=== PATIENT | male | born 1955 | race African-American/Black ===

== ENCOUNTER 2019-10-17 19:26 | Inpatient (IN) ==
[2019-10-17] MEDS ORDERED: ALBUT/IPRATROP 3MG/0.5MG NEB 3 ML VIAL NEB STA ×2 (19:41→22:19)
--- NOTE | 2019-10-17 19:59 | XRay Report ---
XR chest 1V portable HISTORY: Shortness of breath. COMPARISON: None. FINDINGS: The cardiac silhouette is moderately enlarged. No focal lung consolidations to suggest pneu monia. There is mild central pulmonary basilar congestion without overt edema. No pleural effusions. No pneumothorax. Degenerative changes noted within the shoulders. IMPRESSION: Moderate cardiomegaly. There is mild central pulmonary vascular congestion without overt edema. ACT 112: Negative or not required by law. Electronically signed by: Blake Zaldivar M.D. 10/17/2019 7:58 PM
--- NOTE | 2019-10-17 20:15 | Emergency Department Note ---
Entered by Jenifer Benavides acting as a scribe for History of Present Illness General Chief complaint: Shortness of Breath/Dyspnea Stated complaint: SOB Time Seen by Provider: 10/17/19 19:33 Source: patient History of Present Illness Onset (ago): day(s) 1 Location: chest Pain Consistency: + intermittent Quality: + sharp Exacerbated By: + other (lying down) Associated symptoms: + chest pain, + cough, + fever/chills, + loss of appetite and + shortness of breath Treatments prior to arrival: none The patient is a 64 year old male who presents to the Emergency Room with complaints of shortness of breath that began today while driving. The patient had just travelled 7 hours from [facility] to [place]. He notes that he had to stop several times to catch his breath. He complains of sharp pain, quick pains in his chest. The patient also notes difficulty sleeping, for when he lays flat he feels uncomfortable. He states that sitting up is more comfortable for him. He also reports that he had a 100.2 degree fever yesterday, along with loss of appetite and dry cough. The patient has a history of CHF, but has not had a heart attack. The patient takes Lasix daily, but he states that he has not taken one today. The patient denies smoking. He states that he exercises about 4 or 5 days a week, and he has not noticed any difficulties lately. The patient has never used a nebulizer before. Home Medications Home Medications Medication Instructions Recorded Confirmed Type aspirin [Aspir-81] 81 mg PO DAILY 10/17/19 10/17/19 History carvedilol 12.5 mg PO DAILY 10/17/19 10/17/19 History furosemide 80 mg PO DAILY 10/17/19 10/17/19 History lisinopril 10 mg PO DAILY 10/17/19 10/17/19 History multivitamin [Multiple Vitamins] 1 tab PO DAILY 10/17/19 10/17/19 History spironolactone 25 mg PO DAILY 10/17/19 10/17/19 History Allergies Allergy/AdvReac Type Severity Reaction Status Date / Time No Known Allergies Allergy Unverified 10/17/19 21:21 Past Med/Surg History Medical History (Updated 10/17/19 @ 23:40 by Dmitri Perez DO) CHF (congestive heart failure) Diastolic murmur Surgical History No pertinent past surgical history Family History Grandmother CHF (congestive heart failure) Social History Preferred Language: Georgian Communication Ability: Effective 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 and A total of 10 systems reviewed and were otherwise negative Physical Exam Vital Signs Vital Signs - 24 hr 10/17/19 19:36 10/17/19 19:48 10/17/19 19:56 Temperature 36.4 C L Temperature Source Oral Pulse Rate 101 H Pulse Rate [Right Finger] 64 Pulse Rate from SpO2 Sensor Pulse Rhythm Regular Pulse Strength Normal Respiratory Rate 16 Respiratory Effort / Characteristics Non-Labored Spontaneous Non-Labored Spontaneous Respiratory Depth Normal Respiratory Pattern Regular Blood Pressure 154/85 H Blood Pressure [Right Arm] Blood Pressure Mean 108 Blood Pressure Mean [Right Arm] Blood Pressure Position Sitting Pulse Oximetry 87 L 97 97 Oxygen Delivery Method Room Air Nasal Cannula Nasal Cannula Oxygen Flow Rate 87 4 5 Sepsis Recent Fever Within 48 Hours No Sepsis Action Taken by Nursing No Action Required 10/17/19 20:31 10/17/19 20:40 10/17/19 20:50 Temperature Temperature Source Pulse Rate 61 64 64 Pulse Rate [Right Finger] Pulse Rate from SpO2 Sensor 63 65 64 Pulse Rhythm Pulse Strength Respiratory Rate 17 27 H 17 Respiratory Effort / Characteristics Respiratory Depth Respiratory Pattern Blood Pressure 155/77 H Blood Pressure [Right Arm] Blood Pressure Mean 95 Blood Pressure Mean [Right Arm] Blood Pressure Position Pulse Oximetry 96 93 97 Oxygen Delivery Method Room Air Room Air Room Air Oxygen Flow Rate Sepsis Recent Fever Within 48 Hours Sepsis Action Taken by Nursing 10/17/19 20:54 10/17/19 21:00 10/17/19 21:01 Temperature Temperature Source Pulse Rate 67 65 Pulse Rate [Right Finger] 62 Pulse Rate from SpO2 Sensor 70 66 Pulse Rhythm Pulse Strength Respiratory Rate 14 27 H 18 Respiratory Effort / Characteristics Respiratory Depth Respiratory Pattern Blood Pressure 150/127 H Blood Pressure [Right Arm] 155/77 H Blood Pressure Mean 132 Blood Pressure Mean [Right Arm] 103 Blood Pressure Position Pulse Oximetry 94 91 93 Oxygen Delivery Method Room Air Room Air Room Air Oxygen Flow Rate Sepsis Recent Fever Within 48 Hours Sepsis Action Taken by Nursing 10/17/19 21:10 10/17/19 21:20 10/17/19 21:30 Temperature Temperature Source Pulse Rate 63 65 62 Pulse Rate [Right Finger] Pulse Rate from SpO2 Sensor 63 65 62 Pulse Rhythm Pulse Strength Respiratory Rate 28 H 11 L 22 Respiratory Effort / Characteristics Respiratory Depth Respiratory Pattern Blood Pressure 145/59 H Blood Pressure [Right Arm] Blood Pressure Mean 99 Blood Pressure Mean [Right Arm] Blood Pressure Position Pulse Oximetry 92 91 94 Oxygen Delivery Method Room Air Room Air Room Air Oxygen Flow Rate Sepsis Recent Fever Within 48 Hours Sepsis Action Taken by Nursing 10/17/19 21:31 10/17/19 21:52 10/17/19 22:00 Temperature Temperature Source Pulse Rate 64 71 68 Pulse Rate [Right Finger] Pulse Rate from SpO2 Sensor 64 72 68 Pulse Rhythm Pulse Strength Respiratory Rate 28 H 36 H 31 H Respiratory Effort / Characteristics Respiratory Depth Respiratory Pattern Blood Pressure Blood Pressure [Right Arm] Blood Pressure Mean Blood Pressure Mean [Right Arm] Blood Pressure Position Pulse Oximetry 96 95 94 Oxygen Delivery Method Room Air Room Air Room Air Oxygen Flow Rate Sepsis Recent Fever Within 48 Hours Sepsis Action Taken by Nursing 10/17/19 22:33 Temperature Temperature Source Pulse Rate Pulse Rate [Right Finger] 69 Pulse Rate from SpO2 Sensor Pulse Rhythm Pulse Strength Respiratory Rate 18 Respiratory Effort / Characteristics Non-Labored Spontaneous Respiratory Depth Respiratory Pattern Blood Pressure Blood Pressure [Right Arm] Blood Pressure Mean Blood Pressure Mean [Right Arm] Blood Pressure Position Pulse Oximetry 91 Oxygen Delivery Method Room Air Oxygen Flow Rate Sepsis Recent Fever Within 48 Hours Sepsis Action Taken by Nursing GENERAL: Patient is in no acute distress. HEENT: No acute trauma, normocephalic atraumatic, mucous membranes moist, no nasal congestion, no scleral icterus. NECK: No stridor, no adenopathy, no meningismus, trachea is midline. LUNGS: Decrease breath sounds, especially in right lower lung. No respiratory distress. No wheezing. Some basilar crackles were heard, especially in right. HEART: 2/6 diastolic murmur. Regular rate and rhythm. ABDOMEN: Soft, nontender, bowel sounds positive, no hernias, no peritonitis. EXTREMITIES: No cyanosis or edema, full range of motion of all the joints without pain or difficulty, no signs for acute trauma. NEUROLOGIC: Oriented x 3, no acute motor or sensory deficits, no focal weakness. SKIN: No rash, no jaundice, no diaphoresis. Course Course 1941: Past medical records reviewed. The patient was evaluated in room A02. A complete history and physical exam was performed. 2125: I rechecked on the patient, who was resting in bed. He will go for CT. 2223: I updated the patient and discussed the possibility of staying in the hospital for further treatment. The patient was agreeable to this. He notes that he is feeling a lot better after 2227: I spoke to Dr. Perez, [facility] hospitalist, who agreed to take over care of the patient. The patient understands and is agreeable to the treatment plan. The patient will be further evaluated. Administered Medications Discontinued Medications Albuterol (Duoneb) 3 ml NEB NOW STA Stop: 10/17/19 19:42 Last Admin: 10/17/19 19:55 Dose: 3 ml Documented by: [id number] Albuterol (Duoneb) 3 ml NEB NOW STA Stop: 10/17/19 22:20 Last Admin: 10/17/19 22:33 Dose: 3 ml Documented by: [id number] Piperacillin Sod/Tazobactam Sod (Zosyn) 4.5 gm in 120 mls @ 240 mls/hr IV NOW ONE Stop: 10/17/19 22:47 Last Infusion: 10/17/19 23:02 Dose: 0 mls/hr Documented by: [id number] Admin: 10/17/19 22:30 Dose: 240 mls/hr Documented by: [id number] Ioversol (Optiray 320 125ml) 118 ml IV ONCE PRN PRN Reason: Interaction Checking Stop: 10/21/19 21:41 Last Admin: 10/17/19 21:43 Dose: 118 ml Documented by: [id number] Medical Decision Making Differential Diagnosis Differential diagnosis includes: pneumonia, bronchitis, CHF, influenza, NJ, anemia, pneumothorax, fluid overload, among others were considered. Medical Records Attestation: I reviewed the patient's medical records. Home Medications Current Medication List: was personally reviewed by me Laboratory Data Attestation: I reviewed the patient's lab results. Result diagrams: 10/17/19 20:10 10/17/19 20:50 Lab Results 10/17/19 10/17/19 10/17/19 Range/Units 19:50 20:10 20:10 WBC 9.37 (4.8-10.8) K/uL RBC 4.44 L (4.7-6.1) M/uL Hgb 14.4 (14.0-18.0) g/dL Hct 42.9 (42-52) % MCV 96.6 (80-100) fL MCH 32.4 (25-34) pg MCHC 33.6 (32-36) g/dL RDW Std Deviation 53.0 H (36.4-46.3) fL RDW Coeff of Matt 15.1 H (11.5-14.5) % Plt Count 189 (130-400) K/uL MPV 11.1 H (7.4-10.4) fL Immature Gran % (Auto) 0.2 % Neut % (Auto) 74.4 % Lymph % (Auto) 16.9 % Kern % (Auto) 8.0 % Eos % (Auto) 0.2 % Baso % (Auto) 0.3 % Immature Gran # (Auto) 0.02 (0.00-0.02) K/uL Neut # (Auto) 6.97 H (1.4-6.5) K/uL Lymph # (Auto) 1.58 (1.2-3.4) K/uL Kern # (Auto) 0.75 H (0.11-0.59) K/uL Eos # (Auto) 0.02 (0-0.5) K/uL Baso # (Auto) 0.03 (0-0.2) K/uL PT 17.2 H (9.0-12.0) Seconds INR 1.7 H (0.9-1.1) APTT 26.5 (21.0-31.0) Seconds PTT Ratio 1.0 Sodium (136-145) mmol/L Potassium (3.5-5.1) mmol/L Chloride (98-107) mmol/L Carbon Dioxide (21-32) mmol/L Anion Gap (3-11) BUN (7-18) mg/dl Creatinine (0.6-1.4) mg/dl Est Cr Clr Drug Dosing ml/min Est GFR ( Amer) Est GFR (Non-Af Amer) BUN/Creatinine Ratio (10-20) Glucose (70-99) mg/dl Lactate (0.4-2.0) mmol/L Calcium (8.5-10.1) mg/dl Magnesium (1.8-2.4) mg/dl Total Bilirubin (0.2-1) mg/dl AST (15-37) U/L ALT (12-78) U/L Alkaline Phosphatase (45-117) U/L Troponin I (0-0.045) ng/ml NT-Pro-B Natriuret Pep (0-900) pg/ml Total Protein (6.4-8.2) gm/dl Albumin (3.4-5.0) gm/dl Globulin (2.5-4.0) gm/dl Albumin/Globulin Ratio (0.9-2) Specimen Hemolysis Influenza Type A (PCR) Neg for Influ A (Neg) Influenza Type B (PCR) Neg for Influ B (Neg) 10/17/19 10/17/19 10/17/19 Range/Units 20:10 20:10 20:50 WBC (4.8-10.8) K/uL RBC (4.7-6.1) M/uL Hgb (14.0-18.0) g/dL Hct (42-52) % MCV (80-100) fL MCH (25-34) pg MCHC (32-36) g/dL RDW Std Deviation (36.4-46.3) fL RDW Coeff of Matt (11.5-14.5) % Plt Count (130-400) K/uL MPV (7.4-10.4) fL Immature Gran % (Auto) % Neut % (Auto) % Lymph % (Auto) % Kern % (Auto) % Eos % (Auto) % Baso % (Auto) % Immature Gran # (Auto) (0.00-0.02) K/uL Neut # (Auto) (1.4-6.5) K/uL Lymph # (Auto) (1.2-3.4) K/uL Kern # (Auto) (0.11-0.59) K/uL Eos # (Auto) (0-0.5) K/uL Baso # (Auto) (0-0.2) K/uL PT (9.0-12.0) Seconds INR (0.9-1.1) APTT (21.0-31.0) Seconds PTT Ratio Sodium 138 (136-145) mmol/L Potassium Cancelled (3.5-5.1) mmol/L Chloride 106 (98-107) mmol/L Carbon Dioxide 27 (21-32) mmol/L Anion Gap 5.0 (3-11) BUN 34 H (7-18) mg/dl Creatinine 1.51 H (0.6-1.4) mg/dl Est Cr Clr Drug Dosing 64.3 ml/min Est GFR ( Amer) 55.4 Est GFR (Non-Af Amer) 47.8 BUN/Creatinine Ratio 22.8 H (10-20) Glucose 102 H (70-99) mg/dl Lactate 2.2 H* (0.4-2.0) mmol/L Calcium 9.6 (8.5-10.1) mg/dl Magnesium (1.8-2.4) mg/dl Total Bilirubin 5.6 H (0.2-1) mg/dl AST (15-37) U/L ALT 52 (12-78) U/L Alkaline Phosphatase 76 (45-117) U/L Troponin I 0.059 H* (0-0.045) ng/ml NT-Pro-B Natriuret Pep 4152 H (0-900) pg/ml Total Protein 8.0 (6.4-8.2) gm/dl Albumin 3.7 (3.4-5.0) gm/dl Globulin 4.3 H (2.5-4.0) gm/dl Albumin/Globulin Ratio 0.9 (0.9-2) Specimen Hemolysis Influenza Type A (PCR) (Neg) Influenza Type B (PCR) (Neg) 10/17/19 10/17/19 Range/Units 20:50 22:08 WBC (4.8-10.8) K/uL RBC (4.7-6.1) M/uL Hgb (14.0-18.0) g/dL Hct (42-52) % MCV (80-100) fL MCH (25-34) pg MCHC (32-36) g/dL RDW Std Deviation (36.4-46.3) fL RDW Coeff of Matt (11.5-14.5) % Plt Count (130-400) K/uL MPV (7.4-10.4) fL Immature Gran % (Auto) % Neut % (Auto) % Lymph % (Auto) % Kern % (Auto) % Eos % (Auto) % Baso % (Auto) % Immature Gran # (Auto) (0.00-0.02) K/uL Neut # (Auto) (1.4-6.5) K/uL Lymph # (Auto) (1.2-3.4) K/uL Kern # (Auto) (0.11-0.59) K/uL Eos # (Auto) (0-0.5) K/uL Baso # (Auto) (0-0.2) K/uL PT (9.0-12.0) Seconds INR (0.9-1.1) APTT (21.0-31.0) Seconds PTT Ratio Sodium (136-145) mmol/L Potassium 4.4 (3.5-5.1) mmol/L Chloride (98-107) mmol/L Carbon Dioxide (21-32) mmol/L Anion Gap (3-11) BUN (7-18) mg/dl Creatinine (0.6-1.4) mg/dl Est Cr Clr Drug Dosing ml/min Est GFR ( Amer) Est GFR (Non-Af Amer) BUN/Creatinine Ratio (10-20) Glucose (70-99) mg/dl Lactate 2.6 H* (0.4-2.0) mmol/L Calcium (8.5-10.1) mg/dl Magnesium 2.2 (1.8-2.4) mg/dl Total Bilirubin (0.2-1) mg/dl AST 32 (15-37) U/L ALT (12-78) U/L Alkaline Phosphatase (45-117) U/L Troponin I (0-0.045) ng/ml NT-Pro-B Natriuret Pep (0-900) pg/ml Total Protein (6.4-8.2) gm/dl Albumin (3.4-5.0) gm/dl Globulin (2.5-4.0) gm/dl Albumin/Globulin Ratio (0.9-2) Specimen Hemolysis Influenza Type A (PCR) (Neg) Influenza Type B (PCR) (Neg) Imaging Data Radiologist's Impression: Radiology results as stated below per my review and the radiologist's interpretation: XR chest 1V portable HISTORY: Shortness of breath. COMPARISON: None. FINDINGS: The cardiac silhouette is moderately enlarged. No focal lung consolidations to suggest pneumonia. There is mild central pulmonary basilar congestion without overt edema. No pleural effusions. No pneumothorax. Degenerative changes noted within the shoulders. IMPRESSION: Moderate cardiomegaly. There is mild central pulmonary vascular congestion without overt edema. ACT 112: Negative or not required by law. Electronically signed by: Blake Zaldivar M.D. 10/17/2019 7:58 PM CHEST CTA for PULMONARY ARTERIES CT DOSE: 1473.17 mGy.cm HISTORY: Shortness of breath. TECHNIQUE: Multiaxial CT images of the chest were performed following the intravenous administration of contrast to evaluate the pulmonary arteries. Maximal intensity projection images were also obtained. A dose lowering technique was utilized adhering to the principles of ALARA. COMPARISON STUDY: None. FINDINGS: Normal caliber thoracic aorta with no evidence for dissection. There is moderate to severe cardiomegaly. There is retrograde opacification of the hepatic veins and IVC consistent with right heart dysfunction. Motion artifact obscures the bilateral lower lobe subsegmental pulmonary arteries. Otherwise, no filling defects within the remaining pulmonary arteries to suggest pulmonary embolus. No suspicious lytic or blastic osseous lesions. The central airways are patent. No pneumothorax. Small linear density within the periphery the left upper lobe consistent with subsegmental atelectasis. Faint groundglass appearance throughout the lungs. This could be due to air-trapping or secondary to a poor inspiratory effort. No pleural or pericardial effusions. Small focus of patchy and nodular densities within the base of the right lower lobe posteriorly. These are suboptimally assessed due to the motion artifact. Dominant nodule measures 2 cm best seen image 59. No hilar lymphadenopathy. A few borderline enlarged mediastinal lymph nodes. IMPRESSION: 1. No evidence for pulmonary embolus with limitations as described above. 2. Moderate to severe cardiomegaly. There is also retrograde opacification of the IVC and hepatic veins consistent with right heart dysfunction. 3. Faint groundglass appearance throughout the lungs. This could be due to air- trapping or secondary to a poor inspiratory effort. 4. Small focus of patchy and nodular densities within the base of the right l ower lobe posteriorly. These are suboptimally assessed due to the motion artifact. The largest nodular density measures approximately 2 cm. This could represent a small focus of inflammatory/infectious change. However, 2-[address] follow-up recommended to ensure resolution and exclude the less likely possibility of a neoplastic process. 5. Borderline mediastinal lymphadenopathy. This also bears watching on future examinations. ACT 112: Negative or not required by law. Electronically signed by: Blake Zaldivar M.D. 10/17/2019 10:07 PM ECG Data Attestation: I personally reviewed and interpreted this ECG as follows: Indication: + SOB/dyspnea Rate (beats per minute): 66 Rhythm: + normal sinus ECG Intervals/blocks: + Normal QT-c (429) ECG ST segments: + T-wave inversions (Lateral); no ST elevation ECG Findings: no PVCs Comparison ECG Date: no prior available Blood Pressure Blood Pressure Findings: Elevated blood pressure Blood Pressure Disposition: further management by hospitalist MDM Narrative There is no leukocytosis or concerning anemia. Platelet count was normal. INR somewhat elevated at 1.7. There was some mild renal insufficiency with a creatinine of 1.51. No concerning electrolyte abnormality. No liver enzyme elevation. BNP was elevated at over 4000, this could be consistent with fluid overload. EKG shows a sinus rhythm, no acute NJ by EKG. Troponin was somewhat elevated at 0.059, this could be consistent with cardiac strain or injury or possibly just mismatch from his hypoxia. Influenza testing was negative. Chest film showed cardiomegaly, no obvious pneumonia, no pneumothorax or CHF. Chest CT shows evidence of for a pneumonia. No evidence for PE. The patient was given a DuoNeb, this did help his breathing, his O2 saturation improved. A second DuoNeb was administered. He received IV Zosyn as antibiotic coverage. He was not given IV fluids because of his history of heart failure. The patient presents with hypoxia, increasing dyspnea. He has a history of cardiomegaly, a heart murmur and CHF. He appears to have pneumonia by work-up. I do think a hospital stay is warranted. I spoke to the patient and case management. The on-call hospitalist was consulted. Continuous Cardiac Monitoring: An order was placed for continuous cardiac monitoring. The monitor shows a rate of 69 with normal sinus rhythm. Impression & Plan Hypoxia, Shortness of breath, Pneumonia, Elevated troponin Discharge Plan Visit Data *Final* Discharge Date/Time: 10/17/19 23:15 Chief Complaint: Shortness of Breath/Dyspnea Stated Complaint: SOB ED Provider: Deshawn Dunham Discharge Problem: Hypoxia, Shortness of breath, Pneumonia, Elevated troponin Patient Disposition: Admitted As Inpatient Discharge Instructions Interventions: ED Discharge Assessment Last Done: 10/17/19 23:15 Discharge Problem: Pneumonia Qualifiers: Pneumonia type: due to unspecified organism Laterality: unspecified laterality Lung location: unspecified part of lung Qualified Code(s): J18.9 - Pneumonia, unspecified organism The scribe's documentation has been prepared under my direction and personally reviewed by me in its entirety. I confirm that the note above accurately reflects all work, treatment, procedures, and medical decision making performed by me.
[2019-10-17 20:24] LABS: Basophils # (auto) 0.03 K/uL (0-0.2); Basophils % (auto) 0.3 %; Eosinophils # (auto) 0.02 K/uL (0-0.5); Eosinophils % (auto) 0.2 %; Hematocrit (blood only) 42.9 % (42-52); Hemoglobin 14.4 g/dL (14.0-18.0); Immature Granulocytes # (auto) 0.02 K/uL (0.00-0.02); Immature Granulocytes % (auto) 0.2 %; Lymphocytes # (auto) 1.58 K/uL (1.2-3.4); Lymphocytes % (auto) 16.9 %; Mean Corpuscular Hemoglobin 32.4 pg (25-34); Mean Corpuscular Hgb Conc 33.6 g/dL (32-36); Mean Corpuscular Volume 96.6 fL (80-100); Mean Platelet Volume 11.1 fL (7.4-10.4); Monocytes # (auto) 0.75 K/uL (0.11-0.59); Neutrophils # (auto) 6.97 K/uL (1.4-6.5); Neutrophils % (auto) 74.4 %; Platelet Count 189 K/uL (130-400); RDW Coefficient of Variation 15.1 % (11.5-14.5); Red Blood Count 4.44 M/uL (4.7-6.1); White Blood Count 9.37 K/uL (4.8-10.8)
[2019-10-17 20:26] LABS: Influenza A virus by PCR Neg for Influ A (Neg); Influenza B virus by PCR Neg for Influ B (Neg)
[2019-10-17 20:39] LABS: INR 1.7 (0.9-1.1); Partial Thromboplastin Time 26.5 Seconds (21.0-31.0); Prothrombin Time 17.2 Seconds (9.0-12.0)
[2019-10-17 20:47] LABS: Albumin Level 3.7 gm/dl (3.4-5.0); BUN Creatinine Ratio 22.8 (10-20); Calcium 9.6 mg/dl (8.5-10.1); Creatinine Clr Calc Pharmacy 64.3 ml/min; Est GFR (African American) 55.4; Est GFR (Non-African American) 47.8
[2019-10-17 21:36] LABS: Potassium 4.4 mmol/L (3.5-5.1)
[2019-10-17 21:39] LABS: Albumin Globulin Ratio 0.9 (0.9-2); Bilirubin,Total 5.6 mg/dl (0.2-1); Globulin 4.3 gm/dl (2.5-4.0)
[2019-10-17 21:42] LABS: Magnesium 2.2 mg/dl (1.8-2.4)
[2019-10-17] MEDS ORDERED: OPTIRAY 320 125ml IV PRN (21:42)
[2019-10-17 21:50] LABS: Troponin I 0.059 ng/ml (0-0.045)
--- NOTE | 2019-10-17 22:09 | CT Scan Report ---
CHEST CTA for PULMONARY ARTERIES CT DOSE: 1473.17 mGy.cm HISTORY: Shortness of breath. TECHNIQUE: Multiaxial CT images of the chest were performed following the intravenous administration of contrast to evaluate the pulmonary arteries. Maximal intensity projection images were also obtaine d. A dose lowering technique was utilized adhering to the principles of ALARA. COMPARISON STUDY: None. FINDINGS: Normal caliber thoracic aorta with no evidence for dissection. There is moderate to severe cardiomegaly. There is retrograde opacification of the hepatic veins and IVC consistent with right he art dysfunction. Motion artifact obscures the bilateral lower lobe subsegmental pulmonary arteries. O therwise, no filling defects within the remaining pulmonary arteries to suggest pulmonary embolus. No suspicious lytic or blastic osseous lesions. The central airways are patent. No pneumothorax. Small linear density within the periphery the left upper lobe consistent with subsegmental atelectasis. Kendrick nt groundglass appearance throughout the lungs. This could be due to air-trapping or secondary to a p oor inspiratory effort. No pleural or pericardial effusions. Small focus of patchy and nodular densit ies within the base of the right lower lobe posteriorly. These are suboptimally assessed due to the m otion artifact. Dominant nodule measures 2 cm best seen image 59. No hilar lymphadenopathy. A few bor derline enlarged mediastinal lymph nodes. IMPRESSION: 1. No evidence for pulmonary embolus with limitations as described above. 2. Moderate to severe cardiomegaly. There is also retrograde opacification of the IVC and hepatic vei ns consistent with right heart dysfunction. 3. Faint groundglass appearance throughout the lungs. This could be due to air-trapping or secondary to a poor inspiratory effort. 4. Small focus of patchy and nodular densities within the base of the right lower lobe posteriorly. T hese are suboptimally assessed due to the motion artifact. The largest nodular density measures appro ximately 2 cm. This could represent a small focus of inflammatory/infectious change. However, 2-[address] follow-up recommended to ensure resolution and exclude the less likely possibility of a n eoplastic process. 5. Borderline mediastinal lymphadenopathy. This also bears watching on future examinations. ACT 112: Negative or not required by law. Electronically signed by: Blake Zaldivar M.D. 10/17/2019 10:07 PM
[2019-10-17] MEDS ORDERED: PIPERACILLIN/TAZOBACTAM 4.5 GM/120 ML BAG IV ONE (22:18)
[2019-10-17] MEDS ORDERED: PIPERACILL/TAZOBAC CONSULT ACTIVE PRN (22:18)
--- NOTE | 2019-10-17 23:03 | History & Physical Report ---
Date of Service October 17, 2019 Assessment & Plan (1) Pneumonia: Admit tele Right lower lobe Given Zosyn dose in ED Treating for community acquired, I will continue patient on IV Rocephin and IV Zithromax. Patient was not given fluid boluses due to his history of CHF. Lactate was minimally elevated at 2.6. (2) Acute respiratory failure with hypoxemia: Improved with 2L nc oxygen which will be continued overnight Duonebs prn (3) Elevated troponin: Considering that this is due to demand ischemia Will trend trops. (4) Diastolic murmur: Patient reports that this is chronic. We have no information to nature of murmur or his EF. Echo ordered. (5) CHF (congestive heart failure): At this time I do not have knowledge to qualify as systolic, diastolic, or combined. Echo ordered Will continue Lasix, carvedilol, and spironolactone. (6) Elevated INR: Patient is not on anticoagulation. He has never been told that this is elevated. I suspect this is due to congested liver from right heart failure. I kept DVT prophylaxis to SCDs. (7) Total bilirubin, elevated: Patient has never been told that this has been elevated or that he has Gilbert's syndrome. He does not have post-prandial abdominal pain or vomiting. Although he has noted nausea over past 5 days such that he has not been eating much. I will check U/S of the gallbladder to assess for stones. History of Present Illness 64 y/o male presented to the ED with SOB and intermittent chest pain. He is traveling to [place] from [place] and had to stop several times to catch his breath by standing at side of car using accessory muscle to breath. He had a fever of 100.2 yesterday and has been having nausea and non-productive cough. He tells me that he has history of CHF but has never had WI. He does not take any anticoagulation. Primary Care Provider: NO PCP Allergies Allergy/AdvReac Type Severity Reaction Status Date / Time No Known Allergies Allergy Unverified 10/17/19 21:21 Home Medications Home Medications Medication Instructions Recorded Confirmed Type aspirin [Aspir-81] 81 mg PO DAILY 10/17/19 10/17/19 History carvedilol 12.5 mg PO DAILY 10/17/19 10/17/19 History furosemide 80 mg PO DAILY 10/17/19 10/17/19 History lisinopril 10 mg PO DAILY 10/17/19 10/17/19 History multivitamin [Multiple Vitamins] 1 tab PO DAILY 10/17/19 10/17/19 History spironolactone 25 mg PO DAILY 10/17/19 10/17/19 History Past Med/Surg History Medical History (Updated 10/17/19 @ 23:40 by Dmitri Perez DO) CHF (congestive heart failure) Diastolic murmur Surgical History No pertinent past surgical history Family History Grandmother CHF (congestive heart failure) Social History Preferred Language: Afghan Feels Safe at Home: Yes Smoking Status: Never smoker Review of Systems Review of Systems: Constitutional- no weight loss Eyes- no acute visual changes ENT- no sinus drainage; no pharyngitis Pulmonary- As in HPI Cardiac- As in HPI GI- no vomiting, no diarrhea, no melena, no hematochezia - no dysuria, no hematuria Musculoskeletal- no arthralgias, no myalgias Derm- no rashes, no new skin lesions. Hematologic- no unusual bruising, no unusual bleeding Lymphatics- no adenopathy Endocrine- no polyuria or polydipsia; no heat or cold intolerance Neuro- no headaches, no focal neurologic symptoms Psych- no anxiety, no depression Physical Exam Physical Exam: General- adult male, NAD Head- atraumatic Eyes- PERRL, EOMI, anicteric ENT- oropharynx clear Neck- supple, no JVD, no adenopathy, no thyromegaly. Lungs- Crackles at the right base, otherwise CTA b/l. Heart- regular rhythm; no gallop, no rub appreciated. II/ diastolic murmur (not new per patient) Abdomen- normal bowel sounds, soft, nontender. 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 Skin- warm & dry Results & Data Vital Signs (Past 12 Hours) Vital Signs Temp Pulse Pulse Resp BP BP Pulse Ox 10/17/19 22:33 69 18 91 10/17/19 22:00 68 31 H 94 10/17/19 21:52 71 36 H 95 10/17/19 21:31 64 28 H 96 10/17/19 21:30 62 22 145/59 H 94 10/17/19 21:20 65 11 L 91 10/17/19 21:10 63 28 H 92 10/17/19 21:01 65 18 150/127 H 93 10/17/19 21:00 67 27 H 91 10/17/19 20:54 62 14 155/77 H 94 10/17/19 20:50 64 17 97 10/17/19 20:40 64 27 H 93 10/17/19 20:31 61 17 155/77 H 96 10/17/19 19:56 64 97 10/17/19 19:48 97 10/17/19 19:36 36.4 C L 101 H 16 154/85 H 87 L Laboratory Results Laboratory Results WBC 9.37 K/uL (4.8-10.8) 10/17/19 20:10 RBC 4.44 M/uL (4.7-6.1) L 10/17/19 20:10 Hgb 14.4 g/dL (14.0-18.0) 10/17/19 20:10 Hct 42.9 % (42-52) 10/17/19 20:10 MCV 96.6 fL (80-100) 10/17/19 20:10 MCH 32.4 pg (25-34) 10/17/19 20:10 MCHC 33.6 g/dL (32-36) 10/17/19 20:10 RDW Std Deviation 53.0 fL (36.4-46.3) H 10/17/19 20:10 RDW Coeff of Matt 15.1 % (11.5-14.5) H 10/17/19 20:10 Plt Count 189 K/uL (130-400) 10/17/19 20:10 MPV 11.1 fL (7.4-10.4) H 10/17/19 20:10 Immature Gran % (Auto) 0.2 % 10/17/19 20:10 Neut % (Auto) 74.4 % 10/17/19 20:10 Lymph % (Auto) 16.9 % 10/17/19 20:10 [place] % (Auto) 8.0 % 10/17/19 20:10 Eos % (Auto) 0.2 % 10/17/19 20:10 Baso % (Auto) 0.3 % 10/17/19 20:10 Immature Gran # (Auto) 0.02 K/uL (0.00-0.02) 10/17/19 20:10 Neut # (Auto) 6.97 K/uL (1.4-6.5) H 10/17/19 20:10 Lymph # (Auto) 1.58 K/uL (1.2-3.4) 10/17/19 20:10 [place] # (Auto) 0.75 K/uL (0.11-0.59) H 10/17/19 20:10 Eos # (Auto) 0.02 K/uL (0-0.5) 10/17/19 20:10 Baso # (Auto) 0.03 K/uL (0-0.2) 10/17/19 20:10 PT 17.2 Seconds (9.0-12.0) H 10/17/19 20:10 INR 1.7 (0.9-1.1) H 10/17/19 20:10 APTT 26.5 Seconds (21.0-31.0) 10/17/19 20:10 PTT Ratio 1.0 10/17/19 20:10 Sodium 138 mmol/L (136-145) 10/17/19 20:10 Potassium 4.4 mmol/L (3.5-5.1) 10/17/19 20:50 Potassium Cancelled 10/17/19 20:50 Chloride 106 mmol/L (98-107) 10/17/19 20:10 Carbon Dioxide 27 mmol/L (21-32) 10/17/19 20:10 Anion Gap 5.0 (3-11) 10/17/19 20:10 BUN 34 mg/dl (7-18) H 10/17/19 20:10 Creatinine 1.51 mg/dl (0.6-1.4) H 10/17/19 20:10 Est Cr Clr Drug Dosing 64.3 ml/min 10/17/19 20:10 Est GFR ( Amer) 55.4 10/17/19 20:10 Est GFR (Non-Af Amer) 47.8 10/17/19 20:10 BUN/Creatinine Ratio 22.8 (10-20) H 10/17/19 20:10 Glucose 102 mg/dl (70-99) H 10/17/19 20:10 Lactate 2.6 mmol/L (0.4-2.0) H* 10/17/19 22:08 Calcium 9.6 mg/dl (8.5-10.1) 10/17/19 20:10 Magnesium 2.2 mg/dl (1.8-2.4) 10/17/19 20:50 Total Bilirubin 5.6 mg/dl (0.2-1) H 10/17/19 20:10 AST 32 U/L (15-37) 10/17/19 20:50 ALT 52 U/L (12-78) 10/17/19 20:10 Alkaline Phosphatase 76 U/L (45-117) 10/17/19 20:10 Troponin I 0.059 ng/ml (0-0.045) H* 10/17/19 20:10 NT-Pro-B Natriuret Pep 4152 pg/ml (0-900) H 10/17/19 20:10 Total Protein 8.0 gm/dl (6.4-8.2) 10/17/19 20:10 Albumin 3.7 gm/dl (3.4-5.0) 10/17/19 20:10 Globulin 4.3 gm/dl (2.5-4.0) H 10/17/19 20:10 Albumin/Globulin Ratio 0.9 (0.9-2) 10/17/19 20:10 Specimen Hemolysis 10/17/19 20:10 Influenza Type A (PCR) Neg for Influ A (Neg) 10/17/19 19:50 Influenza Type B (PCR) Neg for Influ B (Neg) 10/17/19 19:50 Diagnostic Findings [facility], [place] [phone] XRay Report Patient: FEDERICO MELENDEZAdmit Date: 10/17/19 MR#: [id number]: Acct ID:[id number]: Date: [address] [place] [address] Zip: Age: 64Location: ED Sex: M Room/Bed: Att Phy:Diagnosis: SOB Eileen Phy: PCP,NOService Date: 10/17/19 Fam Phy:Interpreting Phy: Blake Zaldivar MD Admit Phy: Ordering Phy: Deshawn Dunham M.D. cc: ~ XR chest 1V portable HISTORY: Shortness of breath. COMPARISON: None. FINDINGS: The cardiac silhouette is moderately enlarged. No focal lung consolidations to suggest pneumonia. There is mild central pulmonary basilar congestion without overt edema. No pleural effusions. No pneumothorax. Degenerative changes noted within the shoulders. IMPRESSION: Moderate cardiomegaly. There is mild central pulmonary vascular congestion without overt edema. ACT 112: Negative or not required by law. Electronically signed by: Blake Zaldivar M.D. 10/17/2019 7:58 PM Dictated: 10/17/191956 Transcribed: 10/17/191956 [place], [place] [phone] CT Scan Report Patient: FEDERICO MELENDEZAdmit Date: 10/17/19 MR#: [id number]: [address] Acct ID:[id number]: Date: [address] [place] [address] Zip: [place] [address] Age: 64Location: ED Sex: M Room/Bed: Att Phy:Diagnosis: SOB Eileen Phy: PCP,NOService Date: 10/17/19 Fam Phy:Interpreting Phy: Blake Zaldivar MD Admit Phy: Ordering Phy: Deshawn Dunham M.D. cc: ~ CHEST CTA for PULMONARY ARTERIES CT DOSE: 1473.17 mGy.cm HISTORY: Shortness of breath. TECHNIQUE: Multiaxial CT images of the chest were performed following the intravenous administration of contrast to evaluate the pulmonary arteries. Maximal intensity projection images were also obtained. A dose lowering technique was utilized adhering to the principles of ALARA. COMPARISON STUDY: None. FINDINGS: Normal caliber thoracic aorta with no evidence for dissection. There is moderate to severe cardiomegaly. There is retrograde opacification of the hepatic veins and IVC consistent with right heart dysfunction. Motion artifact obscures the bilateral lower lobe subsegmental pulmonary arteries. Otherwise, no filling defects within the remaining pulmonary arteries to suggest pulmonary embolus. No suspicious lytic or blastic osseous lesions. The central airways are patent. No pneumothorax. Small linear density within the periphery the left upper lobe consistent with subsegmental atelectasis. Faint groundglass appearance throughout the lungs. This could be due to air-trapping or secondary to a poor inspiratory effort. No pleural or pericardial effusions. Small focus of patchy and nodular densities within the base of the right lower lobe posteriorly. These are suboptimally assessed due to the motion artifact. Dominant nodule measures 2 cm best seen image 59. No hilar lymphadenopathy. A few borderline enlarged mediastinal lymph nodes. IMPRESSION: 1. No evidence for pulmonary embolus with limitations as described above. 2. Moderate to severe cardiomegaly. There is also retrograde opacification of the IVC and hepatic veins consistent with right heart dysfunction. 3. Faint groundglass appearance throughout the lungs. This could be due to air- trapping or secondary to a poor inspiratory effort. 4. Small focus of patchy and nodular densities within the base of the right lower lobe posteriorly. These are suboptimally assessed due to the motion artifact. The largest nodular density measures approximately 2 cm. This could represent a small focus of inflammatory/infectious change. However, 2-[address] follow-up recommended to ensure resolution and exclude the less likely possibility of a neoplastic process. 5. Borderline mediastinal lymphadenopathy. This also bears watching on future examinations. ACT 112: Negative or not required by law. Electronically signed by: Blake Zaldivar M.D. 10/17/2019 10:07 PM Dictated: 10/17/192157 Transcribed: 10/17/192157 Code Status & VTE Plan VTE Prophylaxis Plan VTE Prophylaxis will be ordered: Yes PG Care Time/CCT Total # of Minutes Spent Total Time Spent: 60 Total Time Spent with Patient: Total time spent is greater than 50% in coordination of care (as documented) at patient's floor/unit and/or counseling patient: Coding Level of Care Code 69531 Initial Inpt Care Lvl 3 Diagnoses Pneumonia J18.9 Laterality: unspecified laterality Lung location: unspecified part of lung Pneumonia type: due to unspecified organism Acute respiratory failure with hypoxemia J96.01 Elevated troponin R79.89 Diastolic murmur I38 CHF (congestive heart failure) I50.9 Elevated INR R79.1 Total bilirubin, elevated R17 (1) Pneumonia Laterality: unspecified laterality Lung location: unspecified part of lung Pneumonia type: due to unspecified organism Qualified Code(s): J18.9 - Pneumonia, unspecified organism
[2019-10-17] MEDS ORDERED: ACETAMINOPHEN 325 MG TAB PO PRN (23:35)
[2019-10-17] MEDS ORDERED: ONDANSETRON INJ 2 MG/ML 2 ML VIAL IV PRN (23:35)
[2019-10-17] MEDS ORDERED: ALBUT/IPRATROP 3MG/0.5MG NEB 3 ML VIAL NEB PRN (23:35)
[2019-10-18] MEDS: FAMOTIDINE 20 MG TAB PO SCH ×3 (00:52→20:00)
[2019-10-18] MEDS ORDERED: AZITHROMYCIN 500 MG in DEXTROSE 5% 250 ML IV SCH (01:00)
[2019-10-18] MEDS ORDERED: GUAIFENESIN/DEXTROM SYRUP 200MG/20MG 10ML UDC PO STA (03:41)
[2019-10-18] MEDS: cefTRIAXone SODIUM 2,000 MG in DEXTROSE 5% 50 ML IV SCH (04:09)
[2019-10-18 06:06] LABS: Hematocrit (blood only) 42.9 % (42-52); Hemoglobin 13.9 g/dL (14.0-18.0); Mean Corpuscular Hemoglobin 31.7 pg (25-34); Mean Corpuscular Hgb Conc 32.4 g/dL (32-36); Mean Corpuscular Volume 97.7 fL (80-100); Mean Platelet Volume 11.1 fL (7.4-10.4); Platelet Count 196 K/uL (130-400); RDW Standard Deviation 53.2 fL (36.4-46.3); Red Blood Count 4.39 M/uL (4.7-6.1); White Blood Count 9.91 K/uL (4.8-10.8)
--- NOTE | 2019-10-18 06:39 | Ultrasound Report ---
BILIARY ULTRASOUND CLINICAL HISTORY: nausea, elevated bili COMPARISON STUDY: No previous studies for comparison. FINDINGS: The pancreas appears normal as visualized. There are multiple right renal cysts the largest of which measures 6 cm. There is no hydronephrosis. There is no intra or extrahepatic biliary ductal dilatation. Biphasic flow is identified within the main portal vein. The gallbladder contained sludge. Addition there is an echogenic nonshadowing focus, likely represent ing a nonshadowing gallstone. The technologist reports a negative sonographic Zimmer sign. IMPRESSION: 1. Sludge-filled gallbladder with a probable nonshadowing calculus. No gallbladder wall thickening, n o pericholecystic fluid. No ductal dilatation. Negative sonographic Zimmer sign. 2. Multiple right renal cysts. No evidence of hydronephrosis 3. Biphasic flow within the main portal vein. This could indicate portal hypertension. ACT 112: Negative or not required by law. Electronically signed by: Jamison Ramirez M.D. 10/18/2019 6:38 AM
[2019-10-18 06:48] LABS: Albumin Level 3.4 gm/dl (3.4-5.0); Bilirubin Direct 0.6 mg/dl (0-0.2); Creatinine Clr Calc Pharmacy 59.9 ml/min; Est GFR (African American) 49.7; Est GFR (Non-African American) 42.9; Potassium 3.8 mmol/L (3.5-5.1)
[2019-10-18 07:00] LABS: Albumin Globulin Ratio 0.8 (0.9-2); Bilirubin,Total 4.4 mg/dl (0.2-1); Globulin 4.1 gm/dl (2.5-4.0); Total Protein 7.5 gm/dl (6.4-8.2); Troponin I 0.077 ng/ml (0-0.045)
[2019-10-18] MEDS: MULTIVITAMIN TAB PO SCH (08:24)
[2019-10-18] MEDS: ASPIRIN 81 MG ECTAB PO SCH (08:24)
[2019-10-18] MEDS: lisinopriL 10 MG TAB PO SCH (08:25)
[2019-10-18] MEDS: SPIRONOLACTONE 25 MG TAB PO SCH (08:25)
[2019-10-18] MEDS ORDERED: carvediloL 12.5 MG TAB PO SCH (09:00)
[2019-10-18] MEDS: FUROSEMIDE 80 MG TAB PO SCH (09:40)
--- NOTE | 2019-10-18 11:52 | XCELERA ---
[id number] \\[id number]\[id number]_[id number]
--- NOTE | 2019-10-18 15:27 | Cardiology Consultation ---
Date of Consultation October 18, 2019 Assessment & Plan (1) Elevated troponin: Patient is very mildly elevated cardiac biomarkers. I do not believe this is client services representative of an acute coronary syndrome. He did not have typical symptoms of chest discomfort. Generally speaking is a very active individual without exertional symptoms of chest pain. On a does have reduced systolic function this is likely chronic. I do not believe that a recent ischemic event resulted in pulmonary edema. I think biomarkers were been more markedly elevated if this were the case. (2) Shortness of breath: He seemed to have element of pulmonary vascular congestion at the time of admission. N terminal proBNP was elevated and there was some evidence pulmonary congestion on his x-ray. Symptoms are certainly consistent with orthopnea and pulmonary edema. He did not report any significant dietary indiscretion. No history of arrhythmia or palpitations. Blood pressure could been elevated but not definitively so. Do not believe he an ischemic event. Would advocate continue his diuretic and administering additional dose based on his description of symptoms and his exam. Think the diagnosis of pneumonia is less likely. (3) Valvular heart disease: He has both mitral and aortic regurgitation. He is not appear to be symptomatic in that regard. This can be followed over time. (4) Cardiomyopathy: He does report having had an ischemic evaluation in the past. He does not currently have symptoms consistent with cardiac ischemia. He likely has a nonischemic cardiomyopathy of unclear etiology. He is on outpatient regimen which consists of a beta-ngozi, lisinopril and aldosterone antagonist. He also takes daily diuretic. Generally appears to be well compensated. 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 History of Present Illness Reason for Consultation: Dyspnea Requesting Physician: Lynne Attending Physician: Karrie Batista MD History of Present Illness Patient is a 64-year-old gentleman who has a prior history of what appears to be nonischemic cardiomyopathy. He was recently traveling from [place] to stay, job. This tracked typically takes 7 hours. The patient states that he had to stop [address] due to significant breathing difficulty. Patient states that he would become acutely dyspneic and have to stop the car and walk around prior to resuming his travels. Approximately 3 days leading up to this admission the patient had not been feeling well. He stated he had some very minor constitutional symptoms such as anorexia and diarrhea. He has not report subjective fevers or chills. He also had some breathing difficulty prior to his trip which involved sitting upright at nighttime due to orthopnea. Generally speaking, he is very active individual. He claims to exercise routinely every week. This involves some riding a stationary bike and some resistance training. He does not report symptoms associated with that activity. He has continued this activity for some time without a change in his exercise tolerance. He has not noticed any exertional chest discomfort. He has not had exertional dyspnea. He denies a sense of palpitation. He is not generally suffer dizziness, lightheadedness or had any episodes of syncope. He appears to be compliant with his medical therapy. He takes his diuretic regularly. He monitors his blood pressure regularly. He states he may have had some elevated readings recently. However, his blood pressure readings can be variable. He has not report any lower extremity edema and actually feels dehydrated currently. Relative to admission, he states that his breathing seems somewhat better. Allergies Allergy/AdvReac Type Severity Reaction Status Date / Time No Known Allergies Allergy Unverified 10/17/19 21:21 Home Medications Home Medications Medication Instructions Recorded Confirmed Type aspirin [Aspir-81] 81 mg PO DAILY 10/17/19 10/17/19 History carvedilol 12.5 mg PO DAILY 10/17/19 10/17/19 History furosemide 80 mg PO DAILY 10/17/19 10/17/19 History lisinopril 10 mg PO DAILY 10/17/19 10/17/19 History multivitamin [Multiple Vitamins] 1 tab PO DAILY 10/17/19 10/17/19 History spironolactone 25 mg PO DAILY 10/17/19 10/17/19 History Patient History Medical History CHF (congestive heart failure) Diastolic murmur Surgical History No pertinent past surgical history Family History Grandmother CHF (congestive heart failure) Social History Preferred Language: Uzbek Communication Ability: Effective 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 Physical Exam Physical Exam: The patient is alert and oriented. Mood and affect appeared normal. He answered all questions appropriately. HEENT: Pupils are equal and reactive to light and accommodation. Extraocular movements are intact. The sclerae are anicteric. Neuro: Cranial nerves intact Neck: Patient's neck is supple. He has palpable carotid pulses bilaterally without bruits on auscultation. There is no evidence of jugular venous distention. The thyroid is not enlarged. Lungs: Clear to auscultation bilaterally. He has good air movement without use of accessory muscles. No rales wheezes or rhonchi. Cardiac: Heart demonstrates a regular rate and rhythm. Normal S1 and S2. Saw crescendo de crescendo murmur appreciated. Pulses: The patient has palpable radial pulses bilaterally that are equal in intensity Extremities: There was no evidence of hypoperfusion. There is no cyanosis or clubbing. There is no edema. Skin: I did not appreciate any rashes on examination today. Results & Data Vital Signs (Past 12 Hours) Vital Signs Temp Pulse Pulse Pulse Resp BP Pulse Ox 10/18/19 12:00 36.3 C L 57 L 18 119/66 97 10/18/19 07:51 54 L 10/18/19 07:30 36.4 C L 61 18 116/69 90 10/18/19 04:08 36.4 C L 60 18 141/73 H 96 Laboratory Results Abnormal Lab Results 10/17/19 10/17/19 10/17/19 19:50 20:10 20:10 WBC 9.37 RBC 4.44 L Hgb 14.4 Hct 42.9 MCV 96.6 MCH 32.4 MCHC 33.6 RDW Std Deviation 53.0 H RDW Coeff of Matt 15.1 H Plt Count 189 MPV 11.1 H Immature Gran % (Auto) 0.2 Neut % (Auto) 74.4 Lymph % (Auto) 16.9 [place] % (Auto) 8.0 Eos % (Auto) 0.2 Baso % (Auto) 0.3 Immature Gran # (Auto) 0.02 Neut # (Auto) 6.97 H Lymph # (Auto) 1.58 [place] # (Auto) 0.75 H Eos # (Auto) 0.02 Baso # (Auto) 0.03 PT 17.2 H INR 1.7 H APTT 26.5 PTT Ratio 1.0 Sodium Potassium Chloride Carbon Dioxide Anion Gap BUN Creatinine Est Cr Clr Drug Dosing Est GFR ( Amer) Est GFR (Non-Af Amer) BUN/Creatinine Ratio Glucose Lactate Calcium Magnesium Total Bilirubin Direct Bilirubin AST ALT Alkaline Phosphatase Troponin I NT-Pro-B Natriuret Pep Total Protein Albumin Globulin Albumin/Globulin Ratio Specimen Hemolysis Influenza Type A (PCR) Neg for Influ A Influenza Type B (PCR) Neg for Influ B 10/17/19 10/17/19 10/17/19 20:10 20:10 20:50 WBC RBC Hgb Hct MCV MCH MCHC RDW Std Deviation RDW Coeff of Matt Plt Count MPV Immature Gran % (Auto) Neut % (Auto) Lymph % (Auto) [place] % (Auto) Eos % (Auto) Baso % (Auto) Immature Gran # (Auto) Neut # (Auto) Lymph # (Auto) [place] # (Auto) Eos # (Auto) Baso # (Auto) PT INR APTT PTT Ratio Sodium 138 Potassium Cancelled Chloride 106 Carbon Dioxide 27 Anion Gap 5.0 BUN 34 H Creatinine 1.51 H Est Cr Clr Drug Dosing 64.3 Est GFR ( Amer) 55.4 Est GFR (Non-Af Amer) 47.8 BUN/Creatinine Ratio 22.8 H Glucose 102 H Lactate 2.2 H* Calcium 9.6 Magnesium Total Bilirubin 5.6 H Direct Bilirubin AST ALT 52 Alkaline Phosphatase 76 Troponin I 0.059 H* NT-Pro-B Natriuret Pep 4152 H Total Protein 8.0 Albumin 3.7 Globulin 4.3 H Albumin/Globulin Ratio 0.9 Specimen Hemolysis Influenza Type A (PCR) Influenza Type B (PCR) 10/17/19 10/17/19 10/18/19 20:50 22:08 05:41 WBC 9.91 RBC 4.39 L Hgb 13.9 L Hct 42.9 MCV 97.7 MCH 31.7 MCHC 32.4 RDW Std Deviation 53.2 H RDW Coeff of Matt 15.0 H Plt Count 196 MPV 11.1 H Immature Gran % (Auto) Neut % (Auto) Lymph % (Auto) [place] % (Auto) Eos % (Auto) Baso % (Auto) Immature Gran # (Auto) Neut # (Auto) Lymph # (Auto) [place] # (Auto) Eos # (Auto) Baso # (Auto) PT INR APTT PTT Ratio Sodium Potassium 4.4 Chloride Carbon Dioxide Anion Gap BUN Creatinine Est Cr Clr Drug Dosing Est GFR ( Amer) Est GFR (Non-Af Amer) BUN/Creatinine Ratio Glucose Lactate 2.6 H* Calcium Magnesium 2.2 Total Bilirubin Direct Bilirubin AST 32 ALT Alkaline Phosphatase Troponin I NT-Pro-B Natriuret Pep Total Protein Albumin Globulin Albumin/Globulin Ratio Specimen Hemolysis Influenza Type A (PCR) Influenza Type B (PCR) 10/18/19 10/18/19 05:41 11:45 WBC RBC Hgb Hct MCV MCH MCHC RDW Std Deviation RDW Coeff of Matt Plt Count MPV Immature Gran % (Auto) Neut % (Auto) Lymph % (Auto) [place] % (Auto) Eos % (Auto) Baso % (Auto) Immature Gran # (Auto) Neut # (Auto) Lymph # (Auto) [place] # (Auto) Eos # (Auto) Baso # (Auto) PT INR APTT PTT Ratio Sodium 136 Potassium 3.8 Chloride 103 Carbon Dioxide 26 Anion Gap 7.0 BUN 35 H Creatinine 1.65 H Est Cr Clr Drug Dosing 59.9 Est GFR ( Amer) 49.7 Est GFR (Non-Af Amer) 42.9 BUN/Creatinine Ratio 21.0 H Glucose 90 Lactate Calcium 9.0 Magnesium Total Bilirubin 4.4 H Direct Bilirubin 0.6 H AST 33 ALT 51 Alkaline Phosphatase 78 Troponin I 0.077 H* 0.053 H* NT-Pro-B Natriuret Pep Total Protein 7.5 Albumin 3.4 Globulin 4.1 H Albumin/Globulin Ratio 0.8 L Specimen Hemolysis Influenza Type A (PCR) Influenza Type B (PCR) Diagnostic Findings Echocardiogram performed today revealed moderate reduced LV systolic function, mild LVH, biatrial dilation, mild to moderate aortic regurgitation and moderate mitral regurgitation. Chest CT did not reveal any evidence of pulmonary embolus. Cardiomegaly was noted. ECG Additional Comments: EKG demonstrated normal sinus rhythm with T-wave inversion s. PG Care Time/CCT Total # of Minutes Spent Total Time Spent with Patient: Total time spent is greater than 50% in coordination of care (as documented) at patient's floor/unit and/or counseling patient: Coding Level of Care Code 95305 Initial Inpt Care Lvl 3 Diagnoses Elevated troponin R79.89 Shortness of breath R06.02 Valvular heart disease I38 Cardiomyopathy I42.9
[2019-10-18] MEDS ORDERED: FUROSEMIDE 80 MG in SYRINGE 0 ML IV ONE (17:00)
--- NOTE | 2019-10-18 17:18 | Electrocardiogram Report ---
Test Reason : Blood Pressure : / mmHG Vent. Rate : 066 BPM Atrial Rate : 066 BPM P-R Int : 200 ms QRS Dur : 114 ms QT Int : 410 ms P-R-T Axes : 016 -35 152 degrees QTc Int : 429 ms Normal sinus rhythm Possible Left atrial enlargement Left axis deviation Left ventricular hypertrophy Abnormal ECG No previous ECGs available Confirmed by Aleksandr Alejandre ([id number]) on 10/18/2019 5:18:00 PM Referred By: REFERRED SELF Confirmed By:Dusty Alejandre
--- NOTE | 2019-10-18 17:31 | Electrocardiogram Report ---
Test Reason : Blood Pressure : / mmHG Vent. Rate : 057 BPM Atrial Rate : 057 BPM P-R Int : 196 ms QRS Dur : 120 ms QT Int : 478 ms P-R-T Axes : 015 -29 191 degrees QTc Int : 465 ms Sinus bradycardia Possible Left atrial enlargement Left ventricular hypertrophy with QRS widening and repolarization abnormality Abnormal ECG When compared with ECG of 17-OCT-2019 19:34, (unconfirmed) Inverted T waves have replaced nonspecific T wave abnormality in Inferior leads T wave inversion now evident in Anterior leads Confirmed by Aleksandr Alejandre ([id number]) on 10/18/2019 5:30:36 PM Referred By: REFERRED SELF Confirmed By:Dusty Alejandre
--- NOTE | 2019-10-18 18:41 | Hospitalist Progress Note ---
Date of Service October 18, 2019 Assessment & Plan (1) Pneumonia: Wit cough and fever, SOB, RLL infiltrate on CT Chest, no PE on CTA FLu swab negative Much improved, SOB resolved, afebrile Treating for community acquired, I will continue patient on IV Rocephin and convert to po Zithromax. Patient was not given fluid boluses due to his history of CHF. Lactate was minimally elevated at 2.6 Looks good, not requiring O2 -Recommend following CXR vs CHest CT to resolution in 1 month given nodular appearance of PNA to rule out malignancy--> discussed with pt (2) Cardiomyopathy: With known nonischemic CM x 2 years, on guideline-directed therapy, has declined ICD in the past after discussions with his Manager Er in [place] ECHO here with EF 30-35%, moderate hypokinesis globally LV, mildly reduced RV fxn, elevated RVSP, mod AI Troponin mildly elevated likely myocardial demand ischemia in setting of PNA, NOT UT proBNP in 4000s, cardiomegaly on CXR but no effusions Has had weight loss actually prior to admission due to poor po intake -initially was going to give IV lasix as per discussion with Cardiology, but pt declines this and is feeling excellent, able to lie flat now after treatment for PNA-dc IV lasix -continue po lasix, aldactone, COreg, lisinopril follow I/Os, daily weights, low sodium diet (3) Acute respiratory failure with hypoxemia: Improved with 2L nc oxygen and now weaned off -continue albuterol prn (4) Elevated troponin: Considering that this is due to demand ischemia as above ECG with diffuse TWIs but possibly due to LVH with repol APpreciate Cardiology consultation. (5) Diastolic murmur: secondary to mod AI on ECHO follow as outpt with Cardio (6) CHF (congestive heart failure): As above, chronic systolic CHF (7) Elevated INR: Patient is not on anticoagulation. INR 1.7 He has never been told that this is elevated. I suspect this is due to congested liver from right heart failure. TBili elevated too and trending downward, other LFTs normal, platelets normal -follow INR in AM (8) Total bilirubin, elevated: Patient has never been told that this has been elevated or that he has Gilbert's syndrome. Seems too high to be [place], is 5 and now down to 4 Likely hepatic congestion from CM He does not have post-prandial abdominal pain or vomiting. Although he has noted nausea over past 5 days such that he has not been eating much. U/S of the gallbladder slows sludge and nonshadowing gallstone suspected, no ductal dilatation, and with bidirectional portal vein flow which could indicate portal HTN -f/u with PCP after discharge for further workup for liver disease -check Hepatitis panel -follow LFTs (9) Valvular heart disease: Mod AI on ECHO, accounts for diastolic murmur -follow u pwith Cardio as outpt (10) Renal cyst: multiple cysts, largest 6 cm on right kidney seen on RUQ US Follow up with PCP (11) DVT prophylaxis: SCDs Dispo-much improved, could likely dc tomorrow Subjective Pt feels so much better than when he came in. The cough he has had for 2 months is now resolved for the last 6 hours he says. He denies chest pain. States he works out regularly at the gym 5 x/week with walking on treadmill and lifting weights. Diagnosed with a nonischemic CM 2 years ago. Denies any recent leg swelling. He has actually lost 7 lbs in the last week with being sick rather than gaining weight. He is hesitant to get any IV lasix as he feels back to his baseline. He denies nay previous history of known liver problems. Says he has no abd pain. Denies a h/o IVDA, but does have intercourse protected, with women several times per year, multiple partners. No h/o hepatitis Is here traveling temporarily for work. Tele with SB, rates in 60-70s Review of Systems Review of Systems: All systems reviewed & are unremarkable except as noted in HPI & below Physical Exam Constitutional: WD/WN, vitals as above Eyes: + scleral abnormality (icterus) ENMT: external ear and nose normal, oropharynx normal Neck: trachea midline, no thyromegaly Respiratory: normal respiratory effort Auscultation: + crackles (right base) Cardiovascular: Rate/Rhythm: regular rate and regular rhythm Heart Sounds: + murmur (3/6 diastolic murmur at RUSB) Chest (Breasts): Chest: normal inspection of chest Gastrointestinal (Abdomen): normal bowel sounds, soft, nontender, no hepatosplenomegaly Musculoskeletal: Extremities: extremities normal to inspection; no cyanosis and no clubbing Skin: no rashes, warm and dry Neurologic: moves all extremities and awake; no focal motor deficits Psychiatric: A+Ox3, euthymic affect Lymphatic: no lymphedema Results & Data ([facility]) Vital Signs (Past 12 Hours) Vital Signs Temp Pulse Pulse Resp BP Pulse Ox 10/18/19 15:42 36.2 C L 58 L 20 128/55 L 91 10/18/19 15:38 71 10/18/19 12:00 36.3 C L 57 L 18 119/66 97 10/18/19 07:51 54 L 10/18/19 07:30 36.4 C L 61 18 116/69 90 Laboratory Results 10/18/19 10/18/19 10/18/19 Range/Units 11:45 05:41 05:41 WBC 9.91 (4.8-10.8) K/uL RBC 4.39 L (4.7-6.1) M/uL Hgb 13.9 L (14.0-18.0) g/dL Hct 42.9 (42-52) % MCV 97.7 (80-100) fL MCH 31.7 (25-34) pg MCHC 32.4 (32-36) g/dL RDW Std Deviation 53.2 H (36.4-46.3) fL RDW Coeff of Amtt 15.0 H (11.5-14.5) % Plt Count 196 (130-400) K/uL MPV 11.1 H (7.4-10.4) fL Immature Gran % (Auto) % Neut % (Auto) % Lymph % (Auto) % [place] % (Auto) % Eos % (Auto) % Baso % (Auto) % Immature Gran # (Auto) (0.00-0.02) K/uL Neut # (Auto) (1.4-6.5) K/uL Lymph # (Auto) (1.2-3.4) K/uL [place] # (Auto) (0.11-0.59) K/uL Eos # (Auto) (0-0.5) K/uL Baso # (Auto) (0-0.2) K/uL PT (9.0-12.0) Seconds INR (0.9-1.1) APTT (21.0-31.0) Seconds PTT Ratio Sodium 136 (136-145) mmol/L Potassium 3.8 (3.5-5.1) mmol/L Chloride 103 (98-107) mmol/L Carbon Dioxide 26 (21-32) mmol/L Anion Gap 7.0 (3-11) BUN 35 H (7-18) mg/dl Creatinine 1.65 H (0.6-1.4) mg/dl Est Cr Clr Drug Dosing 59.9 ml/min Est GFR ( Amer) 49.7 Est GFR (Non-Af Amer) 42.9 BUN/Creatinine Ratio 21.0 H (10-20) Glucose 90 (70-99) mg/dl Lactate (0.4-2.0) mmol/L Calcium 9.0 (8.5-10.1) mg/dl Magnesium (1.8-2.4) mg/dl Total Bilirubin 4.4 H (0.2-1) mg/dl Direct Bilirubin 0.6 H (0-0.2) mg/dl AST 33 (15-37) U/L ALT 51 (12-78) U/L Alkaline Phosphatase 78 (45-117) U/L Troponin I 0.053 H* 0.077 H* (0-0.045) ng/ml NT-Pro-B Natriuret Pep (0-900) pg/ml Total Protein 7.5 (6.4-8.2) gm/dl Albumin 3.4 (3.4-5.0) gm/dl Globulin 4.1 H (2.5-4.0) gm/dl Albumin/Globulin Ratio 0.8 L (0.9-2) Specimen Hemolysis Influenza Type A (PCR) (Neg) Influenza Type B (PCR) (Neg) 10/17/19 10/17/19 10/17/19 Range/Units 22:08 20:50 20:50 WBC (4.8-10.8) K/uL RBC (4.7-6.1) M/uL Hgb (14.0-18.0) g/dL Hct (42-52) % MCV (80-100) fL MCH (25-34) pg MCHC (32-36) g/dL RDW Std Deviation (36.4-46.3) fL RDW Coeff of Matt (11.5-14.5) % Plt Count (130-400) K/uL MPV (7.4-10.4) fL Immature Gran % (Auto) % Neut % (Auto) % Lymph % (Auto) % [place] % (Auto) % Eos % (Auto) % Baso % (Auto) % Immature Gran # (Auto) (0.00-0.02) K/uL Neut # (Auto) (1.4-6.5) K/uL Lymph # (Auto) (1.2-3.4) K/uL [place] # (Auto) (0.11-0.59) K/uL Eos # (Auto) (0-0.5) K/uL Baso # (Auto) (0-0.2) K/uL PT (9.0-12.0) Seconds INR (0.9-1.1) APTT (21.0-31.0) Seconds PTT Ratio Sodium (136-145) mmol/L Potassium 4.4 Cancelled (3.5-5.1) mmol/L Chloride (98-107) mmol/L Carbon Dioxide (21-32) mmol/L Anion Gap (3-11) BUN (7-18) mg/dl Creatinine (0.6-1.4) mg/dl Est Cr Clr Drug Dosing ml/min Est GFR ( Amer) Est GFR (Non-Af Amer) BUN/Creatinine Ratio (10-20) Glucose (70-99) mg/dl Lactate 2.6 H* (0.4-2.0) mmol/L Calcium (8.5-10.1) mg/dl Magnesium 2.2 (1.8-2.4) mg/dl Total Bilirubin (0.2-1) mg/dl Direct Bilirubin (0-0.2) mg/dl AST 32 (15-37) U/L ALT (12-78) U/L Alkaline Phosphatase (45-117) U/L Troponin I (0-0.045) ng/ml NT-Pro-B Natriuret Pep (0-900) pg/ml Total Protein (6.4-8.2) gm/dl Albumin (3.4-5.0) gm/dl Globulin (2.5-4.0) gm/dl Albumin/Globulin Ratio (0.9-2) Specimen Hemolysis Influenza Type A (PCR) (Neg) Influenza Type B (PCR) (Neg) 10/17/19 10/17/19 10/17/19 Range/Units 20:10 20:10 20:10 WBC (4.8-10.8) K/uL RBC (4.7-6.1) M/uL Hgb (14.0-18.0) g/dL Hct (42-52) % MCV (80-100) fL MCH (25-34) pg MCHC (32-36) g/dL RDW Std Deviation (36.4-46.3) fL RDW Coeff of Matt (11.5-14.5) % Plt Count (130-400) K/uL MPV (7.4-10.4) fL Immature Gran % (Auto) % Neut % (Auto) % Lymph % (Auto) % [place] % (Auto) % Eos % (Auto) % Baso % (Auto) % Immature Gran # (Auto) (0.00-0.02) K/uL Neut # (Auto) (1.4-6.5) K/uL Lymph # (Auto) (1.2-3.4) K/uL [place] # (Auto) (0.11-0.59) K/uL Eos # (Auto) (0-0.5) K/uL Baso # (Auto) (0-0.2) K/uL PT 17.2 H (9.0-12.0) Seconds INR 1.7 H (0.9-1.1) APTT 26.5 (21.0-31.0) Seconds PTT Ratio 1.0 Sodium 138 (136-145) mmol/L Potassium (3.5-5.1) mmol/L Chloride 106 (98-107) mmol/L Carbon Dioxide 27 (21-32) mmol/L Anion Gap 5.0 (3-11) BUN 34 H (7-18) mg/dl Creatinine 1.51 H (0.6-1.4) mg/dl Est Cr Clr Drug Dosing 64.3 ml/min Est GFR ( Amer) 55.4 Est GFR (Non-Af Amer) 47.8 BUN/Creatinine Ratio 22.8 H (10-20) Glucose 102 H (70-99) mg/dl Lactate 2.2 H* (0.4-2.0) mmol/L Calcium 9.6 (8.5-10.1) mg/dl Magnesium (1.8-2.4) mg/dl Total Bilirubin 5.6 H (0.2-1) mg/dl Direct Bilirubin (0-0.2) mg/dl AST (15-37) U/L ALT 52 (12-78) U/L Alkaline Phosphatase 76 (45-117) U/L Troponin I 0.059 H* (0-0.045) ng/ml NT-Pro-B Natriuret Pep 4152 H (0-900) pg/ml Total Protein 8.0 (6.4-8.2) gm/dl Albumin 3.7 (3.4-5.0) gm/dl Globulin 4.3 H (2.5-4.0) gm/dl Albumin/Globulin Ratio 0.9 (0.9-2) Specimen Hemolysis Influenza Type A (PCR) (Neg) Influenza Type B (PCR) (Neg) 10/17/19 10/17/19 Range/Units 20:10 19:50 WBC 9.37 (4.8-10.8) K/uL RBC 4.44 L (4.7-6.1) M/uL Hgb 14.4 (14.0-18.0) g/dL Hct 42.9 (42-52) % MCV 96.6 (80-100) fL MCH 32.4 (25-34) pg MCHC 33.6 (32-36) g/dL RDW Std Deviation 53.0 H (36.4-46.3) fL RDW Coeff of Matt 15.1 H (11.5-14.5) % Plt Count 189 (130-400) K/uL MPV 11.1 H (7.4-10.4) fL Immature Gran % (Auto) 0.2 % Neut % (Auto) 74.4 % Lymph % (Auto) 16.9 % [place] % (Auto) 8.0 % Eos % (Auto) 0.2 % Baso % (Auto) 0.3 % Immature Gran # (Auto) 0.02 (0.00-0.02) K/uL Neut # (Auto) 6.97 H (1.4-6.5) K/uL Lymph # (Auto) 1.58 (1.2-3.4) K/uL [place] # (Auto) 0.75 H (0.11-0.59) K/uL Eos # (Auto) 0.02 (0-0.5) K/uL Baso # (Auto) 0.03 (0-0.2) K/uL PT (9.0-12.0) Seconds INR (0.9-1.1) APTT (21.0-31.0) Seconds PTT Ratio Sodium (136-145) mmol/L Potassium (3.5-5.1) mmol/L Chloride (98-107) mmol/L Carbon Dioxide (21-32) mmol/L Anion Gap (3-11) BUN (7-18) mg/dl Creatinine (0.6-1.4) mg/dl Est Cr Clr Drug Dosing ml/min Est GFR ( Amer) Est GFR (Non-Af Amer) BUN/Creatinine Ratio (10-20) Glucose (70-99) mg/dl Lactate (0.4-2.0) mmol/L Calcium (8.5-10.1) mg/dl Magnesium (1.8-2.4) mg/dl Total Bilirubin (0.2-1) mg/dl Direct Bilirubin (0-0.2) mg/dl AST (15-37) U/L ALT (12-78) U/L Alkaline Phosphatase (45-117) U/L Troponin I (0-0.045) ng/ml NT-Pro-B Natriuret Pep (0-900) pg/ml Total Protein (6.4-8.2) gm/dl Albumin (3.4-5.0) gm/dl Globulin (2.5-4.0) gm/dl Albumin/Globulin Ratio (0.9-2) Specimen Hemolysis Influenza Type A (PCR) Neg for Influ A (Neg) Influenza Type B (PCR) Neg for Influ B (Neg) PG Care Time/CCT Total # of Minutes Spent Total Time Spent with Patient: Total time spent is greater than 50% in coordination of care (as documented) at patient's floor/unit and/or counseling patient: Coding Level of Care Code 25629 Subseq Hosp Care Lvl 3 Diagnoses Pneumonia J18.9 Laterality: unspecified laterality Lung location: unspecified part of lung Pneumonia type: due to unspecified organism Cardiomyopathy I42.9 Acute respiratory failure with hypoxemia J96.01 Elevated troponin R79.89 Diastolic murmur I38 CHF (congestive heart failure) I50.9 Elevated INR R79.1 Total bilirubin, elevated R17 Valvular heart disease I38 Renal cyst N28.1 DVT prophylaxis Z29.9 (1) Pneumonia Laterality: unspecified laterality Lung location: unspecified part of lung Pneumonia type: due to unspecified organism Qualified Code(s): J18.9 - Pneumo yessenia, unspecified organism
[2019-10-18] MEDS: AZITHROMYCIN 250 MG TAB PO SCH (19:59)
[2019-10-18] MEDS: carvediloL 12.5 MG TAB PO SCH (20:00)
[2019-10-19] MEDS: cefTRIAXone SODIUM 2,000 MG in DEXTROSE 5% 50 ML IV SCH (05:13)
[2019-10-19 06:20] LABS: Hematocrit (blood only) 40.9 % (42-52); Hemoglobin 13.7 g/dL (14.0-18.0); Mean Corpuscular Hemoglobin 31.9 pg (25-34); Mean Corpuscular Hgb Conc 33.5 g/dL (32-36); Mean Corpuscular Volume 95.1 fL (80-100); Mean Platelet Volume 11.2 fL (7.4-10.4); Platelet Count 162 K/uL (130-400); RDW Coefficient of Variation 14.9 % (11.5-14.5); RDW Standard Deviation 51.6 fL (36.4-46.3); White Blood Count 7.39 K/uL (4.8-10.8)
[2019-10-19 06:29] LABS: INR 1.6 (0.9-1.1); Prothrombin Time 15.5 Seconds (9.0-12.0)
[2019-10-19 06:53] LABS: Albumin Level 3.2 gm/dl (3.4-5.0); BUN Creatinine Ratio 22.9 (10-20); Bilirubin Direct 0.5 mg/dl (0-0.2); Calcium 9.2 mg/dl (8.5-10.1); Creatinine Clr Calc Pharmacy 64.6 ml/min; Est GFR (African American) 54.1; Est GFR (Non-African American) 46.7; Potassium 3.9 mmol/L (3.5-5.1)
[2019-10-19 07:00] LABS: Albumin Globulin Ratio 0.8 (0.9-2); Bilirubin,Total 2.2 mg/dl (0.2-1); Total Protein 7.2 gm/dl (6.4-8.2)
[2019-10-19] MEDS: carvediloL 12.5 MG TAB PO SCH (08:05)
[2019-10-19] MEDS: MULTIVITAMIN TAB PO SCH (08:05)
[2019-10-19] MEDS: FAMOTIDINE 20 MG TAB PO SCH (08:05)
[2019-10-19] MEDS: lisinopriL 10 MG TAB PO SCH (08:05)
[2019-10-19] MEDS: ASPIRIN 81 MG ECTAB PO SCH (08:05)
[2019-10-19] MEDS: SPIRONOLACTONE 25 MG TAB PO SCH (08:06)
[2019-10-19] MEDS: FUROSEMIDE 80 MG TAB PO SCH (08:06)
[2019-10-19 08:23] LABS: Hepatitis B Surface Antigen Neg (Neg)
[2019-10-19 08:52] LABS: Hepatitis C IgG 13Yrs+Old_Rflx Neg (Neg)
--- NOTE | 2019-10-19 09:51 | Cardiology Progress Note ---
Date of Service October 19, 2019 Assessment & Plan (1) Elevated troponin: Not suggestive of acute coronary syndrome. No angina or chest pain. (2) Shortness of breath: Seem like the most likely explanation was pulmonary edema. He was not administered any intravenous diuretic. He continues take his oral diuretic. Lung examination seems benign. He is not symptomatic currently. Did not experience orthopnea last evening. Would seem reasonable to send him out on his usual outpatient regimen and him follow up with his primary mounter. (3) Valvular heart disease: He has both mitral and aortic regurgitation. He is not appear to be symptomatic in that regard. This can be followed over time. (4) Cardiomyopathy: Appears well compensated today. He should continue on his outpatient medical regimen trip includes beta-blockade, Damián inhibition and aldosterone antagonism. Subjective This morning patient claims to feeling quite well. He states the breathing is back to its baseline. He has been ambulatory in the asher without significant dyspnea. He feels any congestion or coughing that he had previously has improved as well. Review of Systems Review of Systems: Per HPI Physical Exam Physical Exam: The patient is alert and oriented. Mood and affect appeared normal. He answered all questions appropriately. HEENT: Pupils are equal and reactive to light and accommodation. Extraocular movements are intact. The sclerae are anicteric. Neuro: Cranial nerves intact Lungs: Clear to auscultation bilaterally. He has good air movement without use of accessory muscles. No rales wheezes or rhonchi. Cardiac: Heart demonstrates a regular rate and rhythm. Normal S1 and S2. Soft crescendo- decrescendo murmur appreciated. Pulses: The patient has palpable radial pulses bilaterally that are equal in intensity Extremities: There was no evidence of hypoperfusion. There is no cyanosis or clubbing. There is no edema. Skin: I did not appreciate any rashes on examination today. Results & Data Vital Signs (Past 12 Hours) Vital Signs Temp Pulse Pulse Resp BP Pulse Ox 10/19/19 07:35 36.7 C 81 16 131/62 93 10/19/19 03:49 36.9 C 63 16 126/61 98 10/18/19 23:34 36.8 C 59 L 18 119/61 95 10/18/19 23:19 57 L Laboratory Results Abnormal Lab Results 10/18/19 10/19/19 10/19/19 11:45 05:47 05:47 WBC 7.39 RBC 4.30 L Hgb 13.7 L Hct 40.9 L MCV 95.1 MCH 31.9 MCHC 33.5 RDW Std Deviation 51.6 H RDW Coeff of Matt 14.9 H Plt Count 162 MPV 11.2 H PT INR Sodium 137 Potassium 3.9 Chloride 107 Carbon Dioxide 24 Anion Gap 6.0 BUN 35 H Creatinine 1.54 H Est Cr Clr Drug Dosing 64.6 Est GFR ( Amer) 54.1 Est GFR (Non-Af Amer) 46.7 BUN/Creatinine Ratio 22.9 H Glucose 87 Calcium 9.2 Total Bilirubin 2.2 H Direct Bilirubin 0.5 H AST 31 ALT 48 Alkaline Phosphatase 71 Troponin I 0.053 H* Total Protein 7.2 Albumin 3.2 L Globulin 4.0 Albumin/Globulin Ratio 0.8 L Hep Bs Antigen Hepatitis C Antibody 10/19/19 10/19/19 05:47 05:47 WBC RBC Hgb Hct MCV MCH MCHC RDW Std Deviation RDW Coeff of Matt Plt Count MPV PT 15.5 H INR 1.6 H Sodium Potassium Chloride Carbon Dioxide Anion Gap BUN Creatinine Est Cr Clr Drug Dosing Est GFR ( Amer) Est GFR (Non-Af Amer) BUN/Creatinine Ratio Glucose Calcium Total Bilirubin Direct Bilirubin AST ALT Alkaline Phosphatase Troponin I Total Protein Albumin Globulin Albumin/Globulin Ratio Hep Bs Antigen Neg Hepatitis C Antibody Neg PG Care Time/CCT Total # of Minutes Spent Total Time Spent with Patient: Total time spent is greater than 50% in coordination of care (as documented) at patient's floor/unit and/or counseling patient: Coding Level of Care Code 50480 Subseq Hosp Care Lvl 3 Diagnoses Elevated troponin R79.89 Shortness of breath R06.02 Valvular heart disease I38 Cardiomyopathy I42.9
[2019-10-19] MEDS: AZITHROMYCIN 250 MG TAB PO SCH (12:12)
--- NOTE | 2019-10-19 12:43 | Discharge Summary ---
Date of Service October 19, 2019 Principal Diagnosis Community acquired pneumonia Discharge Exam Constitutional WD/WN, vitals as above Eyes PERRL, conjunctivae normal, anicteric sclerae + scleral abnormality (icterus) ENMT external ear and nose normal, oropharynx normal Neck trachea midline, no thyromegaly Respiratory normal respiratory effort, lungs clear to auscultation normal respiratory effort Auscultation: + crackles (right base) Cardiovascular Rate/Rhythm: regular rate and regular rhythm Heart Sounds: + murmur (3/6 diastolic murmur at RUSB) Chest (Breasts) Chest: normal inspection of chest Gastrointestinal (Abdomen) normal bowel sounds, soft, nontender, no hepatosplenomegaly Musculoskeletal Extremities: extremities normal to inspection; no cyanosis and no clubbing Skin no rashes, warm and dry Neurologic moves all extremities and awake; no focal motor deficits Psychiatric A+Ox3, euthymic affect Lymphatic no lymphedema Discharge Data Allergies Allergy/AdvReac Type Severity Reaction Status Date / Time No Known Allergies Allergy Unverified 10/17/19 21:21 Consultations 10/17/19 22:21 ED Decision to Admit Stat 10/17/19 23:35 Consult Case Management - Discharge Planning Routine 10/18/19 09:19 Consult Cardiology Routine Ordered Studies 10/17/19 20:55 CT angio chest PE protocol Stat 10/18/19 US gallbladder Routine Hospital Course (1) Pneumonia: With cough and fever, SOB, RLL infiltrate on CT Chest, no PE on CTA FLu swab negative Much improved, SOB resolved, afebrile, no further cough, feeling very well Treating for community acquired,continued on IV Rocephin and po Zithromax. WIll finish out course of 5 days of azithro on dc and cefdinir 300mg po bid x 5 more days Patient was not given fluid boluses due to his history of CHF. Lactate was minimally elevated at 2.6 Looks good, not requiring O2 Blood cultures-no growth to date at 48 hrs markprior to discharge -Recommend following CHest CT to resolution in 1 month given nodular appearance of PNA to rule out malignancy--> discussed with pt (2) Cardiomyopathy: With known nonischemic CM x 2 years, on guideline-directed therapy, has declined ICD in the past after discussions with his Communications Scientist in [place] ECHO here with EF 30-35%, moderate hypokinesis globally LV, mildly reduced RV fxn, elevated RVSP, mod AI Troponin mildly elevated likely myocardial demand ischemia in setting of PNA, NOT NE proBNP in 4000s, cardiomegaly on CXR but no effusions Has had weight loss actually prior to admission due to poor po intake -initially was going to give IV lasix as per discussion with Cardiology, but pt declines this and is feeling excellent, able to lie flat now after treatment for PNA-dc IV lasix Appears euvolemic at time of discharge His weigh twent up but he had actually lost 7 lbs prior to admission from poor po intake -continue po lasix, aldactone, COreg, lisinopril at home doses except COreg was changed to bid from qday follow I/Os, daily weights, low sodium diet (3) Acute respiratory failure with hypoxemia: Improved with 2L nc oxygen and now weaned off Is ambulating without any hypoxia or SAHU (4) Elevated troponin: Considered that this is due to demand ischemia as above ECG with diffuse TWIs but possibly due to LVH with repol APpreciate Cardiology consultation. (5) Diastolic murmur: secondary to mod AI on ECHO follow as outpt with Cardio (6) CHF (congestive heart failure): As above, chronic systolic CHF (7) Elevated INR: Patient is not on anticoagulation. INR 1.7 and then down to 1.6 on day of discharge He has never been told that this is elevated. I suspect this is due to congested liver from right heart failure. TBili elevated too and trending downward, other LFTs normal, platelets normal -follow INR as an outpt with PCP (8) Total bilirubin, elevated: Patient has never been told that this has been elevated or that he has Gilbert's syndrome. Seems too high to be [place], is 5 and now down to 4 and then down to 2.2 on day of dc Likely hepatic congestion from CM He does not have post-prandial abdominal pain or vomiting. Although he has noted nausea over past 5 days prior to admission, such that he has not been eating much. U/S of the gallbladder slows sludge and non-shadowing gallstone suspected, no ductal dilatation, and with bidirectional portal vein flow which could indicate portal HTN -f/u with PCP after discharge for further workup for liver disease -check Hepatitis panel--> B and C negative, A pending at time of discharge -follow LFTs as outpt with PCP (9) Valvular heart disease: Mod AI on ECHO, accounts for diastolic murmur -follow up with Cardio as outpt (10) Renal cyst: multiple cysts, largest 6 cm on right kidney seen on RUQ US Follow up with PCP (11) CKD (chronic kidney disease) stage 3, GFR 30-59 ml/min: Per Diem Clerk around his baseline as per his reports at 1.5-1.6 -avoid nephrotoxins and renally dos emeds -ok to remain on lisinopril, lasix,. aldactone (12) DVT prophylaxis: SCDs Dispo-much improved, stable for dc to home Total Time Total Time Spent Total Time Spent (In Minutes): 35 min Total Time Includes: Examination of the Patient, Discharge Planning, Medication Reconciliation and Communication With Other Providers (Cardiology) Discharge Plan Discharge Items Patient Disposition: Home - Self-Care Reason For Visit: PNEUMONIA,RIGHT Discharge Diagnosis: Pneumonia, Acute respiratory failure with hypoxia-resolved Condition on Discharge: Good Activity: Resume your previous activity Non-emergency contact: Primary Care Provider and Communications Scientist Call non-emergency contact if: you have any medication questions, your symptoms worsen and your temperature is above 101 Follow-up/Referrals: PCP,NO [Primary Care Provider] - Diet: Low Sodium (2gm) Fluids: 1800ml (7 cups) Addtl Attending Provider Instructions: Please finish out the course of antibiotics as prescribed for your pneumonia. You should have a follow up CT scan of your chest in 1 month to ensure the pneumonia and nodules are resolved with treatment. You had some elevation of your liver tests (bilirubin) and you should follow up on this with your PCP. It did improve but was not completely back to normal at the time of discharge. Follow up with your PCP and Communications Scientist within 1-2 weeks after discharge as well. The ultrasound of your liver showed some sludge in your gallbladder and a possible gallstone but nothing causing a blockage. It did also however show some possible signs of "Portal Hypertension" which can be from chronic liver problems. Please follow up with your PCP regarding this. Your hepatitis B and C testing was negative. It has been a pleasure taking care of you! Call your Primary Care doctor if any of the following symptoms or problems start or get worse: * Shortness of breath or difficulty breathing * Wake up at night short of breath * Chest pain * Cough * Swelling of your hands, feet, or legs * More fatigued or tired with your normal activity * Palpitations - sudden fast heart beats WEIGHT * Weigh yourself every morning after using the bathroom. * Use the same scale. * Wear the same amount of clothing. * Write your weight down on a chart. * Call your Primary Care doctor if you gain more than 2-3 pounds in 1-2 days. MEDICATIONS * Use this discharge instruction sheet for medication instructions. * Take your medications at the time your doctor ordered. * Do not skip a dose of your medicines. * If you miss a dose of medicine, take it as soon as possible, but DO NOT DOUBLE A DOSE. * Read your medicine information when you get home. * Know all of the side effects of your medicine. If in doubt, ask your pharmacist * Call your Primary Care doctor's office if you have any side effects. * Be sure all of your doctors know what medicine and herbs you take (including cold, flu, and herbal medicine). Take the following with you to your follow-up doctor appointments: * Weight Chart * Medication List * List of questions Do not drink excessive alcohol, beer or wine. Pending Studies at Discharge: Yes (Final blood culture studies, Hepatitis A) Stand-Alone Forms: My [facility] Medications and DC Order Prescriptions: New azithromycin [Zithromax] 250 mg Tablet 250 mg PO QAM Qty: 3 RF: 0 cefdinir 300 mg capsule 300 mg PO BID 5 Days Qty: 10 RF: 0 Continued lisinopril 10 mg tablet 10 mg PO DAILY RF: 0 spironolactone 25 mg tablet 25 mg PO DAILY RF: 0 furosemide 80 mg tablet 80 mg PO DAILY RF: 0 aspirin [Aspir-81] 81 mg Tablet,Delayed Release (Dr/Ec) 81 mg PO DAILY RF: 0 multivitamin [Multiple Vitamins] Tablet 1 tab PO DAILY RF: 0 Changed carvedilol 12.5 mg tablet 12.5 mg PO BID Qty: 0 RF: 0 Discharge Orders: Discharge Order (Routine); Ordered 10/19/19 Ordered By: Karrie Batista Admission Data Admit Date/Time: 10/17/19 22:51 Attending Provider: Karrie Batista Admit Provider: Dmitri Perez Primary Care Provider: PCP,NO Other Providers: Dmitri Perez ; Ted Alejandre Coding Level of Care Code D/C Day Management >30 mins Diagnoses Pneumonia J18.9 Laterality: unspecified laterality Lung location: unspecified part of lung Pneumonia type: due to unspecified organism Cardiomyopathy I42.9 Acute respiratory failure with hypoxemia J96.01 Elevated troponin R79.89 Diastolic murmur I38 CHF (congestive heart failure) I50.9 Elevated INR R79.1 Total bilirubin, elevated R17 Valvular heart disease I38 Renal cyst N28.1 CKD (chronic kidney disease) stage 3, GFR 30-59 ml/min N18.3 DVT prophylaxis Z29.9
[2019-10-20 12:50] LABS: Hepatitis A Antibody IgM NON-REACTIVE (NON-REACTIVE); Hepatitis B Core Antibody IgM NON-REACTIVE (NON-REACTIVE)
== END 2019-10-19 14:01 | disposition home or self-care (01) | DRG 193 ==
LOC: ED 19:26 → SUATTDRO 22:51 → 2N 22:51

== ENCOUNTER 2022-01-05 07:30 | Inpatient (IN) ==
[2022-01-05] MEDS ORDERED: FUROSEMIDE 10 MG/ML 10 ML VIAL IV ONE (07:49)
[2022-01-05] MEDS ORDERED: NITROGLYCERIN 2% OINTMENT 30GM TUBE EXT STA (07:49)
[2022-01-05 07:52] LABS: Basophils # (auto) 0.06 K/uL (0-0.2); Eosinophils # (auto) 0.05 K/uL (0-0.5); Eosinophils % (auto) 0.8 %; Hemoglobin 14.5 g/dL (14.0-18.0); Immature Granulocytes # (auto) 0.01 K/uL (0.00-0.02); Immature Granulocytes % (auto) 0.2 %; Lymphocytes # (auto) 1.22 K/uL (1.2-3.4); Lymphocytes % (auto) 19.6 %; Mean Corpuscular Hemoglobin 32.9 pg (25-34); Mean Corpuscular Hgb Conc 33.7 g/dL (32-36); Mean Corpuscular Volume 97.5 fL (80-100); Mean Platelet Volume 10.4 fL (7.4-10.4); Monocytes # (auto) 0.51 K/uL (0.11-0.59); Monocytes % (auto) 8.2 %; Neutrophils # (auto) 4.39 K/uL (1.4-6.5); Neutrophils % (auto) 70.2 %; Platelet Count 161 K/uL (130-400); RDW Coefficient of Variation 14.8 % (11.5-14.5); RDW Standard Deviation 52.9 fL (36.4-46.3); Red Blood Count 4.41 M/uL (4.7-6.1); White Blood Count 6.24 K/uL (4.8-10.8)
[2022-01-05] MEDS ORDERED: FUROSEMIDE 40 MG/4 ML VIAL IV ONE (07:54)
[2022-01-05 08:09] LABS: Albumin Level 3.8 gm/dl (3.4-5.0); BUN Creatinine Ratio 13.8 (10-20); Bilirubin,Total 4.4 mg/dl (0.2-1.0); Calcium 9.5 mg/dl (8.5-10.1); Creatinine Clr Calc Pharmacy 75.4 ml/min; Est GFR (African American) 65.4 ml/min; Est GFR (Non-African American) 56.5 ml/min; Globulin 3.8 gm/dl (2.5-4.0); Potassium 4.1 mmol/L (3.5-5.1); Total Protein 7.6 gm/dl (6.0-8.3)
--- NOTE | 2022-01-05 08:09 | Emergency Department Note ---
Impression & Plan SOB (shortness of breath), CHF (congestive heart failure), Elevated troponin, Pedal edema ED Provider Note NAME: FEDERICO MELENDEZ AGE: 66 SEX: M : 1955 ARRIVES VIA: Ambulance INFORMANT: [Patient] ED PROVIDER(S): [Deshawn Dunham MD] CHIEF COMPLAINT: Short of breath HISTORY OF PRESENT ILLNESS: The patient is a 66-year-old male who presents with a week of increasing dyspnea and leg swelling. He has a history of CHF. He typically takes 80 mg of Lasix daily. The patient states that this morning, he was quite short of breath. He has noticed that his shortness of breath in the last week has been worse with exertion and when he tries to sleep laying flat. He was placed on oxygen by EMS and felt markedly better. He received aspirin and 2 sprays of nitroglycerin. The patient did have some left arm discomfort and numbness this morning. The pain was a 6/10. The pain is improved after the nitroglycerin. He also felt some shocklike sensation across the left chest wall, no chest tightness or real pain though. The shocks were brief and only seconds in length. There has been some nausea, no fever, no cough, no diarrhea. Of note, the patient is on Augmentin for presumed pneumonia diagnosed by urgent care last week. He is to take this medication for 10 days. REVIEW OF SYSTEMS: See HPI for pertinent positives and negatives. A total of ten systems were reviewed and were otherwise negative. PMHx/PSHx: See Below SOCIAL HISTORY: See Below. PHYSICAL EXAM: GENERAL: Patient is in no acute distress. HEENT: No acute trauma, normocephalic atraumatic, mucous membranes moist, no nasal congestion, no scleral icterus. NECK: No stridor, no adenopathy, no meningismus, trachea is midline. LUNGS: Diminished breath sounds bilaterally with some crackles bilaterally, no respiratory distress. HEART: 3/6 murmur which is in throughout the entire cardiac cycle but most pronounced during systole. Regular rate and rhythm. ABDOMEN: Soft, nontender, bowel sounds positive, no hernias, no peritonitis. EXTREMITIES: No cyanosis, moderate bilateral pedal edema, full range of motion of all the joints without pain or difficulty, no signs for acute trauma. NEUROLOGIC: Oriented x 3, no acute motor or sensory deficits, no focal weakness. SKIN: No rash, no jaundice, no diaphoresis. DIFFERENTIAL DIAGNOSIS: Reactive airway disease, COVID-19, influenza, pneumothorax, COPD, CHF, infection, cardiac ischemia, pulmonary embolism, bronchitis, musculoskeletal, gastrointestinal, as well as other pathologies. EMERGENCY DEPARTMENT COURSE/PROCEDURES: ECG: Indication was shortness of breath. The ECG shows a sinus rhythm with a first-degree AV block. The rate is 70. LVH is present. There are some T wave inversions noted laterally. No ST elevation. No PVCs. The QTC is 503. Continuous Cardiac Monitoring: An order was placed for continuous cardiac monitoring. The monitor shows a rate of 72 with sinus rhythm with a first- degree AV block. Critical Care Note: I have personally spent 42 minutes of critical care time in the direct management of this patient. This includes bedside care, interpretation of diagnostic studies, and testing, discussion with consultants, patient, and family members, and other required patient management activities. This 42 minutes is in excess of all separately billable procedures. MEDICAL DECISION MAKING: There is no leukocytosis or concerning anemia. There is a normal platelet count. INR is slightly elevated at 1.6. No significant electrolyte abnormality, no renal failure. BNP was elevated consistent with CHF and fluid overload. ECG shows a sinus rhythm with a first-degree AV block. Cardiac enzyme testing x1 is somewhat elevated consistent with potential cardiac injury/strain. TSH was slightly elevated, the T4 is pending. No concerning liver enzyme elevation. COVID, influenza and RSV testing returned negative. Chest x-ray does show cardiomegaly and CHF. On exam, the patient had crackles in both lower lung tellez. He had pedal edema. Patient received IV Lasix, 100 mg. He was given nitroglycerin paste, 2 inches. The patient is currently resting comfortably. He has a history of CHF and appears to be in CHF. He has noticed increasing pedal edema. Given his history, I do think a hospital stay is warranted. The patient requires IV diuresis, monitoring, troponin trending. I spoke with the patient, I talked to case management, the on-call hospitalist was consulted. Past Med/Surg History Medical History CHF (congestive heart failure) CKD (chronic kidney disease) stage 3, GFR 30-59 ml/min Diastolic murmur Renal cyst Surgical History No pertinent past surgical history Family History Grandmother CHF (congestive heart failure) Social History Smoking Status: Never smoker Hx Alcohol Use: Yes Alcohol type: hard liquor Hx Substance Use: No Preferred Language: Divehi Communication Ability: Effective Music Engraver Required: No Beliefs That Will Affect Care: None Current Living Situation: Alone Feels Safe at Home: Yes Assistive Devices: None Allergies Allergies Allergy/AdvReac Type Severity Reaction Status Date / Time No Known Allergies Allergy Unverified 01/05/22 09:06 Home Meds Home Medications Medication Instructions Recorded Confirmed furosemide 80 mg tablet 80 mg PO QAM 10/17/19 01/05/22 lisinopril 10 mg tablet 10 mg PO QAM 10/17/19 01/05/22 multivitamin (Multiple Vitamins) 1 tab PO QAM 10/17/19 01/05/22 spironolactone 25 mg tablet 25 mg PO QAM 10/17/19 01/05/22 amoxicillin 875 mg-potassium 1 tab PO Q12 01/05/22 01/05/22 clavulanate 125 mg tablet aspirin 81 mg tablet,delayed 81 mg PO QAM 01/05/22 01/05/22 release benzonatate 100 mg capsule 100 mg PO Q8H PRN 01/05/22 01/05/22 carvedilol 12.5 mg tablet 12.5 mg PO QAM 01/05/22 01/05/22 Results & Data (ED) Vital Signs Vital Signs - 24 hr 01/05/22 07:40 01/05/22 07:46 01/05/22 09:10 Temperature 36.4 C L Temperature Source Oral Pulse Rate 72 Pulse Rate [Left Finger] 67 Pulse Rhythm Regular Pulse Strength Normal Respiratory Rate 18 23 Respiratory Effort / Characteristics Non-Labored Spontaneous Respiratory Depth Normal Respiratory Pattern Regular Blood Pressure 155/82 H Blood Pressure [Right Arm] 133/64 Blood Pressure Mean 106 Blood Pressure Mean [Right Arm] 87 Blood Pressure Position Sitting Blood Pressure Position [Right Arm] Sitting Pulse Oximetry 97 96 Oxygen Delivery Method Room Air Nasal Cannula Room Air Sepsis Recent Fever Within 48 Hours No Sepsis New/Unexplained Change in Mental Status N/A Sepsis Action Taken by Nursing No Action Required Home Medications Current Medication List: was personally reviewed by me Laboratory Data Attestation: I reviewed the patient's lab results. Result diagrams: 01/05/22 07:40 01/05/22 07:40 Lab Results 01/05/22 01/05/22 01/05/22 Range/Units 07:40 07:40 07:40 WBC 6.24 (4.8-10.8) K/uL RBC 4.41 L (4.7-6.1) M/uL Hgb 14.5 (14.0-18.0) g/dL Hct 43.0 (42-52) % MCV 97.5 (80-100) fL MCH 32.9 (25-34) pg MCHC 33.7 (32-36) g/dL RDW Std Deviation 52.9 H (36.4-46.3) fL RDW Coeff of Matt 14.8 H (11.5-14.5) % Plt Count 161 (130-400) K/uL MPV 10.4 (7.4-10.4) fL Immature Gran % (Auto) 0.2 % Neut % (Auto) 70.2 % Lymph % (Auto) 19.6 % Amite % (Auto) 8.2 % Eos % (Auto) 0.8 % Baso % (Auto) 1.0 % Neut # (Auto) 4.39 (1.4-6.5) K/uL Lymph # (Auto) 1.22 (1.2-3.4) K/uL Amite # (Auto) 0.51 (0.11-0.59) K/uL Eos # (Auto) 0.05 (0-0.5) K/uL Baso # (Auto) 0.06 (0-0.2) K/uL Immature Gran # (Auto) 0.01 (0.00-0.02) K/uL PT Cancelled INR Cancelled APTT Cancelled PTT Ratio Cancelled Sodium (136-145) mmol/L Potassium (3.5-5.1) mmol/L Chloride (98-107) mmol/L Carbon Dioxide (21-32) mmol/L Anion Gap (3-11) BUN (6-23) mg/dl Creatinine (0.6-1.4) mg/dl Est Cr Clr Drug Dosing ml/min Est GFR ( Amer) ml/min Est GFR (Non-Af Amer) ml/min BUN/Creatinine Ratio (10-20) Glucose (70-99(Fasting)) mg/dl Calcium (8.5-10.1) mg/dl Magnesium (1.7-2.4) mg/dl Total Bilirubin (0.2-1.0) mg/dl AST (13-39) U/L ALT (7-52) U/L Alkaline Phosphatase (34-104) U/L Troponin I High Sens 48.5 H (0-20) pg/ml B-Natriuretic Peptide (0-100) pg/ml Total Protein (6.0-8.3) gm/dl Albumin (3.4-5.0) gm/dl Globulin (2.5-4.0) gm/dl Albumin/Globulin Ratio (0.9-2) TSH (0.300-4.500) uIu/ml SARS-CoV-2 (PCR) (Negative) Influenza Type A (PCR) (Neg) Influenza Type B (PCR) (Neg) RSV (RT-PCR) (Neg) 01/05/22 01/05/22 01/05/22 Range/Units 07:40 08:07 08:07 WBC (4.8-10.8) K/uL RBC (4.7-6.1) M/uL Hgb (14.0-18.0) g/dL Hct (42-52) % MCV (80-100) fL MCH (25-34) pg MCHC (32-36) g/dL RDW Std Deviation (36.4-46.3) fL RDW Coeff of Matt (11.5-14.5) % Plt Count (130-400) K/uL MPV (7.4-10.4) fL Immature Gran % (Auto) % Neut % (Auto) % Lymph % (Auto) % Amite % (Auto) % Eos % (Auto) % Baso % (Auto) % Neut # (Auto) (1.4-6.5) K/uL Lymph # (Auto) (1.2-3.4) K/uL Amite # (Auto) (0.11-0.59) K/uL Eos # (Auto) (0-0.5) K/uL Baso # (Auto) (0-0.2) K/uL Immature Gran # (Auto) (0.00-0.02) K/uL PT INR APTT PTT Ratio Sodium 137 (136-145) mmol/L Potassium 4.1 (3.5-5.1) mmol/L Chloride 105 (98-107) mmol/L Carbon Dioxide 24 (21-32) mmol/L Anion Gap 8 (3-11) BUN 18 (6-23) mg/dl Creatinine 1.30 (0.6-1.4) mg/dl Est Cr Clr Drug Dosing 75.4 ml/min Est GFR ( Amer) 65.4 ml/min Est GFR (Non-Af Amer) 56.5 ml/min BUN/Creatinine Ratio 13.8 (10-20) Glucose 124 H (70-99(Fasting)) mg/dl Calcium 9.5 (8.5-10.1) mg/dl Magnesium 1.9 (1.7-2.4) mg/dl Total Bilirubin 4.4 H (0.2-1.0) mg/dl AST 25 (13-39) U/L ALT 19 (7-52) U/L Alkaline Phosphatase 77 (34-104) U/L Troponin I High Sens (0-20) pg/ml B-Natriuretic Peptide 2951 H (0-100) pg/ml Total Protein 7.6 (6.0-8.3) gm/dl Albumin 3.8 (3.4-5.0) gm/dl Globulin 3.8 (2.5-4.0) gm/dl Albumin/Globulin Ratio 1.0 (0.9-2) TSH (0.300-4.500) uIu/ml SARS-CoV-2 (PCR) (Negative) Influenza Type A (PCR) (Neg) Influenza Type B (PCR) (Neg) RSV (RT-PCR) (Neg) 01/05/22 01/05/22 01/05/22 Range/Units 08:07 08:07 08:19 WBC (4.8-10.8) K/uL RBC (4.7-6.1) M/uL Hgb (14.0-18.0) g/dL Hct (42-52) % MCV (80-100) fL MCH (25-34) pg MCHC (32-36) g/dL RDW Std Deviation (36.4-46.3) fL RDW Coeff of Matt (11.5-14.5) % Plt Count (130-400) K/uL MPV (7.4-10.4) fL Immature Gran % (Auto) % Neut % (Auto) % Lymph % (Auto) % Amite % (Auto) % Eos % (Auto) % Baso % (Auto) % Neut # (Auto) (1.4-6.5) K/uL Lymph # (Auto) (1.2-3.4) K/uL Amite # (Auto) (0.11-0.59) K/uL Eos # (Auto) (0-0.5) K/uL Baso # (Auto) (0-0.2) K/uL Immature Gran # (Auto) (0.00-0.02) K/uL PT 16.6 H INR 1.6 H APTT 28.5 PTT Ratio 1.0 Sodium (136-145) mmol/L Potassium (3.5-5.1) mmol/L Chloride (98-107) mmol/L Carbon Dioxide (21-32) mmol/L Anion Gap (3-11) BUN (6-23) mg/dl Creatinine (0.6-1.4) mg/dl Est Cr Clr Drug Dosing ml/min Est GFR ( Amer) ml/min Est GFR (Non-Af Amer) ml/min BUN/Creatinine Ratio (10-20) Glucose (70-99(Fasting)) mg/dl Calcium (8.5-10.1) mg/dl Magnesium (1.7-2.4) mg/dl Total Bilirubin (0.2-1.0) mg/dl AST (13-39) U/L ALT (7-52) U/L Alkaline Phosphatase (34-104) U/L Troponin I High Sens (0-20) pg/ml B-Natriuretic Peptide (0-100) pg/ml Total Protein (6.0-8.3) gm/dl Albumin (3.4-5.0) gm/dl Globulin (2.5-4.0) gm/dl Albumin/Globulin Ratio (0.9-2) TSH 5.088 H (0.300-4.500) uIu/ml SARS-CoV-2 (PCR) NEGATIVE (Negative) Influenza Type A (PCR) Negative (Neg) Influenza Type B (PCR) Negative (Neg) RSV (RT-PCR) Negative (Neg) Administered Medications Discontinued Medications Furosemide (Furosemide 10 Mg/Ml 10 Ml Vial) 100 mg IV ONE ONE Stop: 01/05/22 07:50 Last Admin: 01/05/22 08:02 Dose: 100 mg Documented by: [id number] Furosemide (Furosemide 40 Mg/4 Ml Vial) Confirm Administered Dose 120 mg IV .STK-MED ONE Stop: 01/05/22 07:55 Last Admin: 01/05/22 08:02 Dose: Not Given Documented by: [id number] Nitroglycerin (Nitroglycerin 2% Ointment 30gm Tube) 2 inch EXT NOW STA Stop: 01/05/22 07:50 Last Admin: 01/05/22 08:06 Dose: 2 inch Documented by: [id number] Imaging Data Radiologist's Impression: Chest X-Ray 01/05/22 07:53 XR chest 1V portable HISTORY: 66 years-old Male sob acute shortness of breath COMPARISON: Chest radiograph 10/17/2019 TECHNIQUE: AP view of the chest FINDINGS: Cardiac silhouette is enlarged. Pulmonary vascular congestion with interstitial coarsening. No pneumothorax or large pleural effusion. Degenerative changes of the shoulders and spine. IMPRESSION: Cardiomegaly with pulmonary edema. ACT 112: Negative or not required by law. The above report was generated using voice recognition software. It may contain grammatical, syntax or spelling errors. Electronically signed by: Cedrick Staples M.D. 01/05/2022 8:45 AM Discharge Plan Visit Data Chief Complaint: Shortness of Breath/Dyspnea Stated Complaint: WEAKNESS, SOB, L ARM TINGLING ED Provider: Deshawn Dunham Discharge Problem: SOB (shortness of breath), CHF (congestive heart failure), Elevated troponin, Pedal edema Patient Disposition: Admitted As Inpatient Condition: Fair Forms Stand Alone Forms: [facility] Prescriptions Prescriptions: No Action lisinopril 10 mg tablet 10 mg PO QAM RF: 0 spironolactone 25 mg tablet 25 mg PO QAM RF: 0 furosemide 80 mg tablet 80 mg PO QAM RF: 0 multivitamin [Multiple Vitamins] Tablet 1 tab PO QAM RF: 0 aspirin [Aspir-81] 81 mg Tablet,Delayed Release (Dr/Ec) 81 mg PO QAM RF: 0 benzonatate 100 mg capsule 100 mg PO Q8H PRN (Reason: Cough) RF: 0 amoxicillin-pot clavulanate 875-125 mg tablet 1 tab PO Q12 RF: 0 carvedilol 12.5 mg tablet 12.5 mg PO QAM RF: 0 Referrals Referrals: PCP,NO [Physician] -
[2022-01-05 08:32] LABS: INR 1.6 (0.9-1.1); Partial Thromboplastin Time 28.5 Seconds (21.0-31.0); Prothrombin Time 16.6 Seconds (9.0-12.0)
--- NOTE | 2022-01-05 08:46 | XRay Report ---
XR chest 1V portable HISTORY: 66 years-old Male sob acute shortness of breath COMPARISON: Chest radiograph 10/17/2019 TECHNIQUE: AP view of the chest FINDINGS: Cardiac silhouette is enlarged. Pulmonary vascular congestion with interstitial coarsening. No pneumo thorax or large pleural effusion. Degenerative changes of the shoulders and spine. IMPRESSION: Cardiomegaly with pulmonary edema. ACT 112: Negative or not required by law. The above report was generated using voice recognition software. It may contain grammatical, syntax o r spelling errors. Electronically signed by: Cedrick Staples M.D. 01/05/2022 8:45 AM
[2022-01-05 08:47] LABS: Thyroid Stimulating Hormone 5.088 uIu/ml (0.300-4.500)
[2022-01-05 09:18] LABS: Influenza A virus by PCR Negative (Neg); Influenza B virus by PCR Negative (Neg); RSV by PCR Negative (Neg); SARS CoV2 RNA(COVID-19) InHosp NEGATIVE (Negative)
[2022-01-05 09:19] LABS: T4 Free Thyroxine 1.08 ng/dl (0.61-1.60)
--- NOTE | 2022-01-05 10:29 | History & Physical Report ---
Date of Service January 05, 2022 Assessment & Plan (1) CHF (congestive heart failure): Plan: Acute on chronic heart failure exacerbation with HFrEF - elevated BNP with hypoxia, chest pain, and increase in swelling of legs with nausea - Patient does not weigh himself daily - 100mg IV Lasix given by EMD- follow output- re-dose with Lasix 60mg IV at 1700 - Provide home medications of Lisinopril and Spironolactone - ECHO- evaluate RWMA and valvular function - Last ECHO 2019- Ef 35-35% with moderate AR, Trace AL, moderate MR - Consult Cardiology for re-evaluation- he previously declined AICD and has not had a cath in the past- appreciate cardiology assistance - Goal diurese today with above studies pending- goal ~1-1.5 Liter Negative for 24 hour (2) Elevated troponin: Plan: HScTNI 48 on arrival with 3 hour recheck at 49.7 - This is likely relates to myocardial injury secondary to type II with hypoxia, underlying structural heart disease, and volume overload - Will continue to trend HScTNI until downtrend - Remove Nitropaste- will have SL nitroglycerine if his CP returns - ECG without dyanmic ST changes - Appreciate Cardiology assistance - If increase >20% or >10pg/DL from baseline will add heparin infusion (3) Edema: Plan: Likely related to HF- will obtain bilateral lower extremity dopplers to rule out DVT - history of travel on plane and trains approx every 2 weeks - No calf pain - duplex lower ext pending (4) Cardiomyopathy: Plan: As above - with previous EF 30-35% with estimated RVSP of 40-50 and global hypokinesis of the LV - Change his Carvedilol to BID dosing- also has not had a dose increase since Sep - Diurese as above - follow symptoms, volume status, and hemodynamics - Continue JUDE - Continue Spironolactone- will repeat IV Lasix but at a lower dose later this evening (5) Valvular heart disease: Plan: AR, MR, TR - ECHO as above- based on his symptomatology would need to identify if there is worsening valvular gradient (6) Total bilirubin, elevated: Plan: This remains >4, his LFTs are normal and ALKPo4 are normal on this admission - had ultrasound performed in 2019 with noted sludge in gallbladder without stones - noted hepatic congestion likely related to #1 - will obtain MRCP - Had hepatitis labs performed 2019 that were negative (7) Elevated INR: Plan: As above- not on anticoagulation - chronic currently 1.6 with elevated PT 16.6 - As above (8) Pneumonia: Plan: Questionable if he had this - is without WBC elevation and no fevers - will transition to IV Rocephin to complete his 10 day course that was perscribed as outpatient - he will have 3 days left History of Present Illness Primary Care Provider: Power Almendarez, DO 66 YOM with past medical history of: ICM, HRrEF, HTN, HLD, elevated INR, nausea, elevated bilirubin. Patient has not been followed by cardiology routinely. Patient comes to the EMD via EMS for complaints of shortness of breath and left sided chest pain. The patient endorses that for the past 2 weeks he has been having increased dyspnea and orthopnea, when he would lay flat he would not be able to breath and get up with "anxiety" and have to sit up to catch his breath. He has been sleeping in his recliner. Today this changed with addition of chest pain and not being able to catch his breath. He received an ASA and Nitroglycerine spray SL and oxygen, he reports that this made him feel better. Patient also endorses that 2 weeks ago he had increase in nausea with loss off appetite and generalized lower quadrant abdominal pain, with reporting stools as dark, however with no blood noted and no vomitting. In the EMD the patient received routine labs to include HScTNI, CXR and ECG done. His HScTNI was elevated at 44, ECG is without dynamic changes. He was given 100mg IV Lasix and has voided once since then but it was not measured. He feels his breathing is improved currently and is on 2LNC with Spo2 97%. The patient will be admitted to PCU, will repeat HScTNI now, ECHO, ultrasound his lower extremities rule out DVT, and will obtain MRCP for his chronically elevated liver enzymes/INR. The patient was last seen here in Sep 2019 with very similar presentation as well as laboratory abnormalities. He did go to Urgent Care last Tuesday for his dyspnea and reports that he had a CXR done and was placed on Augmentin for 10 days for pneumonia- will change this to Rocephin for 3 days to complete course, but suspicion is low. COVID and Influenza A/B tests on admission are: NEGATIVE Allergies Allergy/AdvReac Type Severity Reaction Status Date / Time No Known Allergies Allergy Unverified 01/05/22 09:06 Home Medications Medication Instructions Recorded Confirmed Type multivitamin (Multiple Vitamins) 1 tab PO QAM 10/17/19 01/05/22 History spironolactone 25 mg tablet 25 mg PO QAM 10/17/19 01/05/22 History aspirin 81 mg tablet,delayed 81 mg PO QAM 01/05/22 01/05/22 History release benzonatate 100 mg capsule 100 mg PO Q8H PRN 01/05/22 01/05/22 History carvedilol 12.5 mg tablet (Coreg) 12.5 mg PO BID #60 tab 01/09/22 Rx furosemide 80 mg tablet 80 mg PO BID17 #60 tab 01/09/22 Rx sacubitril 24 mg-valsartan 26 mg 1 tab PO BID #60 tab 01/09/22 Rx tablet (Entresto) Past Med/Surg History Medical History CHF (congestive heart failure) CKD (chronic kidney disease) stage 3, GFR 30-59 ml/min Diastolic murmur Renal cyst Surgical History No pertinent past surgical history Family History Grandmother CHF (congestive heart failure) Social History Smoking Status: Never smoker Hx Alcohol Use: No Hx Substance Use: No Preferred Language: Luxembourger Communication Ability: Effective 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 Beliefs That Will Affect Care: None Current Living Situation: Alone Feels Safe at Home: Yes Assistive Devices: None Review of Systems Review of Systems: REVIEW OF SYSTEMS: Constitutional: No fever, sweats or chills Eyes: No diplopia, no worsening or blurred vision ENT: normal hearing, no trouble swallowing Respiratory: (+) dyspnea at rest or on exertion, orthopnea, No cough, sputum, Cardiovascular: (+) chest pain, increase in lower extremity edema, increase in abdomen feeling tight, NO tightness or palpitations Abdomen: (+) pain, nausea, change in stools, NO vomiting, diarrhea or constipation Musculoskeletal: No joint pain, calf pain, swelling Neurologic: No weakness, numbness/tingling, or balance problems Psychiatric: No anxiety or depression Skin: No rash or itch Physical Exam Physical Exam: PHYSICAL EXAM: General: awake, alert, no apparent distress Head: Normocephalic, atraumatic ENT: PERRL, EOMI, no pharyngeal exudate, mucous membranes moist Neuro: AAO x 3, speech clear and appropriate, strength intact bilaterally 5/5, sensation intact and equal all extremities and dermatomes, no pronator drift Chest: equal rise and fall of the chest, no accessory muscle use, no heaves or thrills, scattered crackles throughout with decrease air movement in the bilateral bases, on 2LNC Cardiac: Regular rate and rhythm, telemetry reviewed- NSR no ectopy, skin warm dry, cap refill <3 seconds, peripheral pulses +2 no JVD, Grade III systolic murmur right sternal border, Grade II systolic murmur left Mid axillary line, +3 edema to lower extremity bilaterally that extends to just below the knee. GI: NABS x 4 quadrants, soft, tender to palpation lower quadrants, no rebound, guarding or tenderness, liver border mildly enlarged : Spontaneously voiding, no pain, no CVA tenderness, Extremities: Normal inspection, no peripheral edema or erythema, calfs nontender to palpation Psych: Normal mood and affect Skin: no rash or erythema Results & Data Results & Data ([facility]) Vital Signs (Past 12 Hours) Vital Signs Temp Pulse Pulse Resp BP BP Pulse Ox 01/05/22 09:30 60 18 142/68 H 96 01/05/22 09:10 67 23 133/64 96 01/05/22 07:40 36.4 C L 72 18 155/82 H 97 Laboratory Results Abnormal lab results 01/05/22 01/05/22 01/05/22 Range/Units 07:40 07:40 07:40 RBC 4.41 L (4.7-6.1) M/uL RDW Std Deviation 52.9 H (36.4-46.3) fL RDW Coeff of Matt 14.8 H (11.5-14.5) % PT (9.0-12.0) Seconds INR (0.9-1.1) Glucose 124 H (70-99(Fasting)) mg/dl Total Bilirubin 4.4 H (0.2-1.0) mg/dl Troponin I High Sens 48.5 H (0-20) pg/ml B-Natriuretic Peptide (0-100) pg/ml TSH (0.300-4.500) uIu/ml 01/05/22 01/05/22 01/05/22 Range/Units 08:07 08:07 08:07 RBC (4.7-6.1) M/uL RDW Std Deviation (36.4-46.3) fL RDW Coeff of Matt (11.5-14.5) % PT 16.6 H (9.0-12.0) Seconds INR 1.6 H (0.9-1.1) Glucose (70-99(Fasting)) mg/dl Total Bilirubin (0.2-1.0) mg/dl Troponin I High Sens (0-20) pg/ml B-Natriuretic Peptide 2951 H (0-100) pg/ml TSH 5.088 H (0.300-4.500) uIu/ml Diagnostic Findings Chest X-Ray 01/05/22 07:53 XR chest 1V portable HISTORY: 66 years-old Male sob acute shortness of breath COMPARISON: Chest radiograph 10/17/2019 TECHNIQUE: AP view of the chest FINDINGS: Cardiac silhouette is enlarged. Pulmonary vascular congestion with interstitial coarsening. No pneumothorax or large pleural effusion. Degenerative changes of the shoulders and spine. IMPRESSION: Cardiomegaly with pulmonary edema. ACT 112: Negative or not required by law. The above report was generated using voice recognition software. It may contain grammatical, syntax or spelling errors. Electronically signed by: Cedrick Staples M.D. 01/05/2022 8:45 AM BILATERAL LOWER EXTREMITY VENOUS DOPPLER HISTORY: bilateral leg swelling, dyspnea, leg pain COMPARISON STUDY: None. FINDINGS: There is normal compressibility, flow, and augmentation within the bilateral lower extremity deep venous systems. IMPRESSION: No DVT within the right or left lower extremity. ACT 112: Negative or not required by law. Medications Administered Home Medications furosemide 80 mg tablet 80 mg PO QAM 10/17/19 [History Confirmed 01/05/22] lisinopril 10 mg tablet 10 mg PO QAM 10/17/19 [History Confirmed 01/05/22] multivitamin (Multiple Vitamins) 1 tab PO QAM 10/17/19 [History Confirmed 01/05/22] spironolactone 25 mg tablet 25 mg PO QAM 10/17/19 [History Confirmed 01/05/22] amoxicillin 875 mg-potassium clavulanate 125 mg tablet 1 tab PO Q12 01/05/22 [History Confirmed 01/05/22] aspirin 81 mg tablet,delayed release 81 mg PO QAM 01/05/22 [History Confirmed 01/05/22] benzonatate 100 mg capsule 100 mg PO Q8H PRN 01/05/22 [History Confirmed 01/05/22] carvedilol 12.5 mg tablet 12.5 mg PO QAM 01/05/22 [History Confirmed 01/05/22] Active Medications Furosemide (Furosemide 40 Mg/4 Ml Vial) 60 mg IV ONE JACKIE Stop: 02/04/22 16:59 Ceftriaxone Sodium 1,000 mg/ (Dextrose) 50 mls @ 100 mls/hr IV Q24H JACKIE; Protocol Stop: 01/12/22 10:29 Ceftriaxone Sodium 2,000 mg/ (Dextrose) 70 mls @ 140 mls/hr IV NOW STA Stop: 01/05/22 11:31 Discontinued Medications Furosemide (Furosemide 10 Mg/Ml 10 Ml Vial) 100 mg IV ONE ONE Stop: 01/05/22 07:50 Last Admin: 01/05/22 08:02 Dose: 100 mg Documented by: [id number] Furosemide (Furosemide 40 Mg/4 Ml Vial) Confirm Administered Dose 120 mg IV .STK-MED ONE Stop: 01/05/22 07:55 Last Admin: 01/05/22 08:02 Dose: Not Given Documented by: [id number] Nitroglycerin (Nitroglycerin 2% Ointment 30gm Tube) 2 inch EXT NOW STA Stop: 01/05/22 07:50 Last Admin: 01/05/22 08:06 Dose: 2 inch Documented by: [id number] ECG Additional Comments: Sinus rhythm with 1st degree A-V block Left axis deviation Left ventricular hypertrophy with QRS widening and repolarization abnormality Abnormal ECG When compared with ECG of 18-OCT-2019 09:52, AL interval has increased T wave inversion no longer evident in Inferior leads T wave inversion no longer evident in Anterior leads Code Status & VTE Plan Code Status CODE: FULL VTE: SCDS, Heparin 5000 units subq TID VTE Prophylaxis Plan VTE Prophylaxis will be ordered: Yes Supervising Physician Co-Signing Physician Notes Attending addendum: I have physically seen this patient, have supervised the FAYE's activities, and agree with the H&P unless as otherwise noted. Assessment and Plan: Acute on chronic HFrEF exacerbation/elevated troponin/cardiomyopathy- The patient will be admitted to telemetry for serial cardiac enzymes, serial EKG's, cardiac rhythm monitoring and a 2-D echocardiogram with Dopplers. Given furosemide 100 mg IV by the ED Admitted on furosemide 60 mg IV daily Continue lisinopril and spironolactone Follow BMP and magnesium levels Echo in 2019 shows ejection fraction of 35%, moderate AR, trace AL, moderate MR Consult cardiology Remaining orders and notations as noted PG Care Time/CCT Total # of Minutes Spent Total Time Spent with Patient: Total time spent is greater than 50% in coordination of care (as documented) at patient's floor/unit and/or counseling patient: Coding Level of Care Code 60963 Initial Inpt Care Lvl 3 Diagnoses CHF (congestive heart failure) I50.9 Heart failure chronicity: acute on chronic Heart failure type: unspecified Elevated troponin R77.8 Cardiomyopathy I42.9 Valvular heart disease I38 Total bilirubin, elevated R17 Elevated INR R79.1 Pneumonia J18.9 Laterality: unspecified laterality Lung location: unspecified part of lung Pneumonia type: due to unspecified organism Edema R60.9 (1) CHF (congestive heart failure) Heart failure chronicity: acute on chronic Heart failure type: unspecified Qualified Code(s): I50.9 - Heart failure, unspecified (2) Pneumonia Laterality: unspecified laterality Lung location: unspecified part of lung Pneumonia type: due to unspecified organism Qualified Code(s): J18.9 - Pneumonia, unspecified organism
[2022-01-05] MEDS ORDERED: cefTRIAXone SODIUM 1,000 MG in DEXTROSE 5% 50 ML IV SCH (10:30)
[2022-01-05] MEDS ORDERED: cefTRIAXone SODIUM 2,000 MG in DEXTROSE 5% 50 ML IV STA (11:02)
--- NOTE | 2022-01-05 11:18 | Ultrasound Report ---
BILATERAL LOWER EXTREMITY VENOUS DOPPLER HISTORY: bilateral leg swelling, dyspnea, leg pain COMPARISON STUDY: None. FINDINGS: There is normal compressibility, flow, and augmentation within the bilateral lower extremit y deep venous systems. IMPRESSION: No DVT within the right or left lower extremity. ACT 112: Negative or not required by law. Electronically signed by: Blake Zaldivar M.D. 01/05/2022 11:16 AM
[2022-01-05] MEDS ORDERED: ACETAMINOPHEN 325 MG TAB PO PRN (13:06)
[2022-01-05] MEDS ORDERED: BENZONATATE 100 MG CAPSULE PO PRN (13:06)
[2022-01-05] MEDS ORDERED: NITROGLYCERIN SL 0.4 MG/TAB TAB SL PRN (13:06)
--- NOTE | 2022-01-05 13:39 | XCELERA ---
[id number]
--- NOTE | 2022-01-05 14:21 | Electrocardiogram Report ---
Test Reason : Blood Pressure : / mmHG Vent. Rate : 070 BPM Atrial Rate : 070 BPM P-R Int : 226 ms QRS Dur : 134 ms QT Int : 466 ms P-R-T Axes : 071 -36 137 degrees QTc Int : 503 ms Sinus rhythm with 1st degree A-V block Left axis deviation Left ventricular hypertrophy with QRS widening and repolarization abnormality Abnormal ECG When compared with ECG of 18-OCT-2019 09:52, [place] interval has increased T wave inversion no longer evident in Inferior leads T wave inversion no longer evident in Anterior leads Confirmed by Aleksandr Alejandre ([id number]) on 01/05/2022 2:21:33 PM Referred By: Confirmed By:Dusty Alejandre
[2022-01-05] MEDS: SPIRONOLACTONE 25 MG TAB PO SCH (15:30)
[2022-01-05] MEDS: HEPARIN SOD 5,000 UNIT/0.5 ML VIAL SQ SCH ×2 (15:31→21:04)
[2022-01-05] MEDS ORDERED: FUROSEMIDE 40 MG/4 ML VIAL IV SCH (17:00)
--- NOTE | 2022-01-05 17:42 | Cardiology Consultation ---
Date of Consultation January 05, 2022 Assessment & Plan (1) CHF (congestive heart failure): (2) Elevated troponin: (3) Cardiomyopathy: (4) Valvular heart disease: 1. Decompensated systolic heart failure: His symptoms are quite consistent with decompensated heart failure. He is known to have an element of reduced LV systolic function. Unclear why he has developed progressive symptoms over the past several weeks, but did present with dyspnea, orthopnea and paroxysmal nocturnal dyspnea. He claims to have lost weight over the past few weeks due to anorexia. Perhaps an element of his reduced p.o. intake is related to abdominal edema as well. He was administered high dose of Lasix earlier today. We will need to monitor his response and continue his diuresis while an inpatient. Will monitor his electrolytes and renal function closely. He does not respond well to loop diuretics as a sole agent we could also add a thiazide. 2. Dilated cardiomyopathy: Unclear etiology. At his last evaluation in 2019 he was passing through [facility] in reported having longitudinal care in [place]. However, it seems that shortly after admission here he sought medical attention [facility] in did report an evaluation possibly including catheterization. I will attempt to obtain these records. No CP he has ever had an ischemic evaluation. Does not currently describe symptoms consistent with angina or ischemia and in fact was able to perform high work loads previously at the gym. His medical regimen can be intensified. Unclear why he was taking carvedilol daily. His lisinopril can be switched to Entresto. Will continue spironolactone. 3. Chest pain: He describes chest pain as a shooting and sharp jabbing sensation in the left arm and left chest. I do not believe this represents ischemia. 4. Elevated troponin: Very mild elevation. No rise suggestive of an acute coronary syndrome. Likely related to his chronic cardiomyopathy. 5. Valvular heart disease: He is known to have an element of aortic and mitral insufficiency. This does not appear to have changed significantly since 2019. Currently will continue diuresis Agree with b.i.d. carvedilol Will monitor his pressures and consider a switch from lisinopril to Entresto in a few days. Obtain records from [facility] Discussed possible evaluation for underlying ischemic heart disease History of Present Illness Reason for Consultation: Dyspnea, chest pain Requesting Physician: Eve Attending Physician: Gregory Prado MD History of Present Illness The patient is a 66-year-old gentleman with a history of a nonischemic cardiomyopathy presented to the hospital for symptoms of worsening dyspnea and chest pains. Patient states that for about 2 months he has been noticing some progressive dyspnea. This became more acute over the past 2 weeks. His symptoms involved a sense of exercise intolerance as well as orthopnea and paroxysmal nocturnal dyspnea. He has also experienced some nausea and anorexia over that time. He has noticed some worsening lower extremity edema. Previously was a very active individual. He states that a few months ago he was going to the gym regularly. He was able to perform exercise on a treadmill and elliptical bike. More recently he has had difficulty lying flat and wakes up at night with panic attacks. This involved a sense of dyspnea requiring him to sit on the side of the bed for period of time. He has not been experience any dizziness or lightheadedness. He denies any sense of palpitation. No history of syncope. He is compliant with his medical therapy. He has not seen a blind hooker in some time but was previously evaluated both in [place] as well as [facility]. Allergies Allergy/AdvReac Type Severity Reaction Status Date / Time No Known Allergies Allergy Unverified 01/05/22 09:06 Home Medications Medication Instructions Recorded Confirmed Type furosemide 80 mg tablet 80 mg PO QAM 10/17/19 01/05/22 History lisinopril 10 mg tablet 10 mg PO QAM 10/17/19 01/05/22 History multivitamin (Multiple Vitamins) 1 tab PO QAM 10/17/19 01/05/22 History spironolactone 25 mg tablet 25 mg PO QAM 10/17/19 01/05/22 History amoxicillin 875 mg-potassium 1 tab PO Q12 01/05/22 01/05/22 History clavulanate 125 mg tablet aspirin 81 mg tablet,delayed 81 mg PO QAM 01/05/22 01/05/22 History release benzonatate 100 mg capsule 100 mg PO Q8H PRN 01/05/22 01/05/22 History carvedilol 12.5 mg tablet 12.5 mg PO QAM 01/05/22 01/05/22 History Patient History Medical History CHF (congestive heart failure) CKD (chronic kidney disease) stage 3, GFR 30-59 ml/min Diastolic murmur Renal cyst Surgical History No pertinent past surgical history Family History Grandmother CHF (congestive heart failure) Social History Smoking Status: Never smoker Hx Alcohol Use: No Hx Substance Use: No Preferred Language: Estonian Communication Ability: Effective 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 Physical Exam Physical Exam: The patient is alert and oriented. Mood and affect appeared normal. He answered all questions appropriately. HEENT: Pupils are equal and reactive to light and accommodation. Extraocular movements are intact. The sclerae are anicteric. Neuro: Cranial nerves intact Lungs: Normal respiratory effort. Crackles in the bases bilaterally. No expiratory wheezing. Cardiac: Heart demonstrates a regular rate and rhythm. Normal S1 and S2. Holosystolic murmur with musical component in left axilla Pulses: The patient has palpable radial pulses bilaterally that are equal in intensity Extremities: There was no evidence of hypoperfusion. There is no cyanosis or clubbing. Mild to moderate lower extremity edema Skin: I did not appreciate any rashes on examination today. Results & Data ([facility]) Vital Signs (Past 12 Hours) Vital Signs Temp Pulse Pulse Resp BP BP Pulse Ox 01/05/22 16:40 36.5 C 63 16 127/67 98 01/05/22 12:50 36.3 C L 71 18 157/72 H 95 01/05/22 12:39 88 16 133/72 99 01/05/22 11:15 63 16 137/63 99 01/05/22 09:30 60 18 142/68 H 96 01/05/22 09:10 67 23 133/64 96 01/05/22 07:40 36.4 C L 72 18 155/82 H 97 Laboratory Results Abnormal Lab Results 01/05/22 01/05/22 01/05/22 07:40 07:40 07:40 WBC 6.24 RBC 4.41 L Hgb 14.5 Hct 43.0 MCV 97.5 MCH 32.9 MCHC 33.7 RDW Std Deviation 52.9 H RDW Coeff of Matt 14.8 H Plt Count 161 MPV 10.4 Immature Gran % (Auto) 0.2 Neut % (Auto) 70.2 Lymph % (Auto) 19.6 Parmer % (Auto) 8.2 Eos % (Auto) 0.8 Baso % (Auto) 1.0 Neut # (Auto) 4.39 Lymph # (Auto) 1.22 Parmer # (Auto) 0.51 Eos # (Auto) 0.05 Baso # (Auto) 0.06 Immature Gran # (Auto) 0.01 PT Cancelled INR Cancelled APTT Cancelled PTT Ratio Cancelled Sodium Potassium Chloride Carbon Dioxide Anion Gap BUN Creatinine Est Cr Clr Drug Dosing Est GFR ( Amer) Est GFR (Non-Af Amer) BUN/Creatinine Ratio Glucose Calcium Magnesium Total Bilirubin AST ALT Alkaline Phosphatase Troponin I High Sens 48.5 H B-Natriuretic Peptide Total Protein Albumin Globulin Albumin/Globulin Ratio TSH Free T4 SARS-CoV-2 (PCR) Influenza Type A (PCR) Influenza Type B (PCR) RSV (RT-PCR) 01/05/22 01/05/22 01/05/22 07:40 08:07 08:07 WBC RBC Hgb Hct MCV MCH MCHC RDW Std Deviation RDW Coeff of Matt Plt Count MPV Immature Gran % (Auto) Neut % (Auto) Lymph % (Auto) Parmer % (Auto) Eos % (Auto) Baso % (Auto) Neut # (Auto) Lymph # (Auto) Parmer # (Auto) Eos # (Auto) Baso # (Auto) Immature Gran # (Auto) PT INR APTT PTT Ratio Sodium 137 Potassium 4.1 Chloride 105 Carbon Dioxide 24 Anion Gap 8 BUN 18 Creatinine 1.30 Est Cr Clr Drug Dosing 75.4 Est GFR ( Amer) 65.4 Est GFR (Non-Af Amer) 56.5 BUN/Creatinine Ratio 13.8 Glucose 124 H Calcium 9.5 Magnesium 1.9 Total Bilirubin 4.4 H AST 25 ALT 19 Alkaline Phosphatase 77 Troponin I High Sens B-Natriuretic Peptide 2951 H Total Protein 7.6 Albumin 3.8 Globulin 3.8 Albumin/Globulin Ratio 1.0 TSH Free T4 SARS-CoV-2 (PCR) Influenza Type A (PCR) Influenza Type B (PCR) RSV (RT-PCR) 01/05/22 01/05/22 01/05/22 08:07 08:07 08:19 WBC RBC Hgb Hct MCV MCH MCHC RDW Std Deviation RDW Coeff of Matt Plt Count MPV Immature Gran % (Auto) Neut % (Auto) Lymph % (Auto) Parmer % (Auto) Eos % (Auto) Baso % (Auto) Neut # (Auto) Lymph # (Auto) Parmer # (Auto) Eos # (Auto) Baso # (Auto) Immature Gran # (Auto) PT 16.6 H INR 1.6 H APTT 28.5 PTT Ratio 1.0 Sodium Potassium Chloride Carbon Dioxide Anion Gap BUN Creatinine Est Cr Clr Drug Dosing Est GFR ( Amer) Est GFR (Non-Af Amer) BUN/Creatinine Ratio Glucose Calcium Magnesium Total Bilirubin AST ALT Alkaline Phosphatase Troponin I High Sens B-Natriuretic Peptide Total Protein Albumin Globulin Albumin/Globulin Ratio TSH 5.088 H Free T4 1.08 SARS-CoV-2 (PCR) NEGATIVE Influenza Type A (PCR) Negative Influenza Type B (PCR) Negative RSV (RT-PCR) Negative 01/05/22 01/05/22 10:20 14:01 WBC RBC Hgb Hct MCV MCH MCHC RDW Std Deviation RDW Coeff of Matt Plt Count MPV Immature Gran % (Auto) Neut % (Auto) Lymph % (Auto) Parmer % (Auto) Eos % (Auto) Baso % (Auto) Neut # (Auto) Lymph # (Auto) Parmer # (Auto) Eos # (Auto) Baso # (Auto) Immature Gran # (Auto) PT INR APTT PTT Ratio Sodium Potassium Chloride Carbon Dioxide Anion Gap BUN Creatinine Est Cr Clr Drug Dosing Est GFR ( Amer) Est GFR (Non-Af Amer) BUN/Creatinine Ratio Glucose Calcium Magnesium Total Bilirubin AST ALT Alkaline Phosphatase Troponin I High Sens 49.7 H 48.5 H B-Natriuretic Peptide Total Protein Albumin Globulin Albumin/Globulin Ratio TSH Free T4 SARS-CoV-2 (PCR) Influenza Type A (PCR) Influenza Type B (PCR) RSV (RT-PCR) Diagnostic Findings Echocardiogram obtained today revealed mildly reduced LV systolic function with ejection fraction estimated at 40%. Moderate left ventricular dilation. Mild LVH. Left atrial dilation. Moderate aortic, mitral and tricuspid regurgitation. Mild dilation of the ascending aorta Chest x-ray obtained today revealed cardiomegaly and pulmonary edema ECG Additional Comments: EKG obtained the time admission revealed normal sinus rhythm with 1st degree AV block. QRS in T-wave morphology consistent with left ventricular hypertrophy. PG Care Time/CCT Total # of Minutes Spent Total Time Spent with Patient: Total time spent is greater than 50% in coordination of care (as documented) at patient's floor/unit and/or counseling patient: Coding Level of Care Code 43449 Initial Inpt Care Lvl 3 Diagnoses CHF (congestive heart failure) I50.9 Heart failure chronicity: acute on chronic Heart failure type: unspecified Elevated troponin R77.8 Cardiomyopathy I42.9 Valvular heart disease I38 (1) CHF (congestive heart failure) Heart failure chronicity: acute on chronic Heart failure type: unspecified Qualified Code(s): I50.9 - Heart failure, unspecified
[2022-01-05] MEDS ORDERED: POTASSIUM CHLORIDE CRTAB 20 MEQ TABCR PO STA (18:47)
[2022-01-05] MEDS ORDERED: FAMOTIDINE 10 MG TABLET PO ONE (20:10)
--- NOTE | 2022-01-05 20:12 | Communication Note ---
Date of Service: January 05, 2022 Patient requesting nausea medication, but has qtc 503. Ordering pepcid 10mg PO. Has ecg ordered for AM. 6 beat run of vtach. Repleting 1 w/ 1 bag of Mg per AM lab level of 1.9. Repeating ecg. ECG w/ significant change in axis when compared to 2 previous ecgs.. Consider repeating later today. Also considered lead misplacement. AM trop pending.
[2022-01-05] MEDS: carvediloL 12.5 MG TAB PO SCH (21:04)
[2022-01-05] MEDS ORDERED: MAGNESIUM SULFATE / D5W 1 GM/100 ML BAG IV ONE (21:45)
[2022-01-06] MEDS: HEPARIN SOD 5,000 UNIT/0.5 ML VIAL SQ SCH ×3 (05:14→21:45)
[2022-01-06 07:55] LABS: Basophils # (auto) 0.06 K/uL (0-0.2); Basophils % (auto) 0.9 %; Eosinophils # (auto) 0.06 K/uL (0-0.5); Eosinophils % (auto) 0.9 %; Hematocrit (blood only) 41.8 % (42-52); Hemoglobin 13.6 g/dL (14.0-18.0); Immature Granulocytes # (auto) 0.01 K/uL (0.00-0.02); Immature Granulocytes % (auto) 0.2 %; Lymphocytes % (auto) 17.4 %; Mean Corpuscular Hemoglobin 31.9 pg (25-34); Mean Corpuscular Hgb Conc 32.5 g/dL (32-36); Mean Corpuscular Volume 98.1 fL (80-100); Mean Platelet Volume 10.5 fL (7.4-10.4); Monocytes # (auto) 0.49 K/uL (0.11-0.59); Monocytes % (auto) 7.7 %; Neutrophils # (auto) 4.62 K/uL (1.4-6.5); Neutrophils % (auto) 72.9 %; Platelet Count 173 K/uL (130-400); RDW Coefficient of Variation 14.8 % (11.5-14.5); RDW Standard Deviation 52.4 fL (36.4-46.3); Red Blood Count 4.26 M/uL (4.7-6.1); White Blood Count 6.34 K/uL (4.8-10.8)
[2022-01-06 08:27] LABS: Troponin I High Sensitivity 46.8 pg/ml (0-20)
[2022-01-06 08:33] LABS: BUN Creatinine Ratio 14.5 (10-20); Calcium 9.4 mg/dl (8.5-10.1); Creatinine Clr Calc Pharmacy 74.9 ml/min; Est GFR (African American) 64.8 ml/min; Est GFR (Non-African American) 55.9 ml/min; Magnesium 2.1 mg/dl (1.7-2.4); Potassium 3.9 mmol/L (3.5-5.1)
[2022-01-06] MEDS: lisinopril 10 MG TAB PO SCH (09:00)
[2022-01-06] MEDS: carvediloL 12.5 MG TAB PO SCH ×2 (09:00→20:31)
[2022-01-06] MEDS: ASPIRIN 81 MG ECTAB PO SCH (09:00)
[2022-01-06] MEDS: SPIRONOLACTONE 25 MG TAB PO SCH (09:00)
--- NOTE | 2022-01-06 09:13 | Electrocardiogram Report ---
Test Reason : Blood Pressure : / mmHG Vent. Rate : 064 BPM Atrial Rate : 064 BPM P-R Int : 226 ms QRS Dur : 122 ms QT Int : 468 ms P-R-T Axes : 076 -36 135 degrees QTc Int : 482 ms Sinus rhythm with 1st degree A-V block Left axis deviation Left ventricular hypertrophy with QRS widening and repolarization abnormality Abnormal ECG When compared with ECG of 05-JAN-2022 07:35, T wave inversion more evident in Lateral leads Confirmed by Aleksandr Alejandre ([id number]) on 01/06/2022 9:13:26 AM Referred By: REFERRED SELF Confirmed By:Dusty Alejandre
--- NOTE | 2022-01-06 09:27 | Magnetic Resonance Report ---
MR MRCP HISTORY: elevated liver enzymes, inr, gallbladder sludge TECHNIQUE: MRCP of the abdomen was performed without contrast according to standard department protoc ol. COMPARISON STUDY: Abdominal ultrasound 10/18/2019. FINDINGS: Suboptimal evaluation of the abdomen due to the motion artifact. Moderate to severe cardiom egaly persists. There is a trace right pleural effusion. No definite hepatic or splenic masses. The a drenal glands and pancreas appear unremarkable. Dilated hepatic veins and IVC likely due to the chron ic right heart dysfunction. No retroperitoneal lymphadenopathy. Multiple scattered T2 hyperintense bi lateral renal lesions. These are technically indeterminate on this noncontrast study but likely repre sent cysts. Dominant lesion within the lower pole of the right kidney measures 5.7 cm. No definite ga llbladder wall thickening. Probable small stones versus sludge within the gallbladder. This is diffic ult to assess due to the motion artifact. The common bile duct and main pancreatic duct are also not well visualized due to the motion artifact but do not appear dilated. Evaluation for filling defect w ithin the common bile duct is nondiagnostic due to the motion artifact. IMPRESSION: 1. Difficult study to interpret due to the motion artifact. 2. However, the common bile duct and main pancreatic duct do not appear dilated. 3. Probable small stones versus sludge within the gallbladder. No gallbladder wall thickening. 4. Moderate to severe cardiomegaly, unchanged. 5. Additional findings as described above. ACT 112: Negative or not required by law. Electronically signed by: Blake Zaldivar M.D. 01/06/2022 9:25 AM
[2022-01-06] MEDS ORDERED: cefTRIAXone SODIUM 2,000 MG in DEXTROSE 5% 50 ML IV SCH (10:00)
--- NOTE | 2022-01-06 15:15 | Hospitalist Progress Note ---
Date of Service January 06, 2022 Assessment & Plan (1) CHF (congestive heart failure): Plan: Acute on chronic biventricular heart failure exacerbation with HFrEF - elevated BNP with hypoxia, chest pain, increase in swelling of legs and nausea - Patient does not weigh himself daily - On 01/05, Given 100mg IV Lasix by EMD with f/u dose of Lasix 60mg IV at 1700 - Provide home medications of Lisinopril and Spironolactone - ECHO updated as above -- worsening RVSP since last echo and slightly improved LV EF - Consult Cardiology for re-evaluation- he previously declined AICD and has not had a cath in the past- appreciate cardiology assistance * Seen by Dr. Alejandre on 01/05, agrees with diuresis, Coreg, and recommends transitioning from Lisinopril to Entresto in coming days - Continue diuresis and adjust to Lasix 40mg IV BID + Spironolactone for right sided symptoms with goal net neg of ~1L - Will benefit from outpatient heart failure program referral (2) Elevated troponin: Plan: HScTNI 48 on arrival with 3 hour recheck at 49.7 - This is likely relates to myocardial injury secondary to type II with hypoxia, underlying structural heart disease, and volume overload - HS Trop 49.7 --> 52.4 -->46.8 - ECG without dynamic ST changes - Cardiology following, echo updated as above - Continue ASA, check fasting lipid panel in AM (3) Edema: Plan: Likely related to HF - history of travel on plane and trains approx every 2 weeks - No calf pain - venous dopplers negative for dvt (4) Cardiomyopathy: Plan: As above - with previous EF 30-35% with estimated RVSP of 40-50 and global hypokinesis of the LV - Change his Carvedilol to BID dosing- also has not had a dose increase since Sep - Diurese as above - follow symptoms, volume status, and hemodynamics - Continue JUDE with plans to transition to Entresto (5) Valvular heart disease: Plan: AR, MR, TR - ECHO updated (6) Total bilirubin, elevated: Plan: This remains >4, his LFTs are normal and ALKPo4 are normal on this admission - had ultrasound performed in 2019 with noted sludge in gallbladder without stones - noted hepatic congestion likely related to #1 - MRCP as above, no CBD dilatation, gallstones v sludge in GB, no s/sx of acute cholecystitis - Had hepatitis labs performed 2019 that were negative (7) Elevated INR: Plan: As above- not on anticoagulation - chronic currently 1.6 with elevated PT 16.6 - As above (8) Pneumonia: Plan: - ? based off of CTA of chest that mentions patching and nodular densities w/in the base of the right lower lobe, however, pt has no cough, fever/chills, or leukocytosis - Given he is asymptomatic, this finding is nonspecific and does not support dx of pneumonia - D/C Rocephin Plan: Diuresis as above Repeat labs and CXR in AM Above plan of care will be d/w Dr. Bonds Admission and Anticipated Discharge Date Admission Date: January 05, 2022 Subjective Patient was seen on daily rounds this morning. He is resting comfortably in bed and offers no new complaints. Reports that breathing has improved and feels swelling in legs also better today. Denies cp, dyspnea at rest, n/v/d, f/c, headache, or gu symptoms. No issues reported by RN. Review of Systems Review of Systems: All systems reviewed and are unremarkable except as noted in HPI and below. +SAHU, bilateral LE edema Denies fever, chills, fatigue, headache, nasal congestion, sore throat, cough, chest pain, palpitations, abdominal pain, n/v/d, constipation, dysuria, hematuria, frequency, back pain, joint pain or swelling, easy bruising or bleeding, skin lesions or rashes. Physical Exam Physical Exam: GENERAL: 66 yo well-developed, well-nourished AAM. NAD. LUNGS: Nonlabored. Bibasilar crackles. No wheezes or rhonchi. CARDIOVASCULAR: Regular rate and rhythm. blowing holosystolic murmur grade 4/6 ABDOMEN: Soft, non-tender and non-distended. BS normal x 4 quad. EXTREMITIES: 2+ pitting edema distal b/l LE. Non-tender. Peripheral pulses +2/4. NEUROLOGIC: A&O x3 PSYCHIATRIC: Cooperative. Appropriate mood and affect. SKIN: Warm, dry, intact. No rashes or lesions. Results & Data Results & Data ([facility]) Vital Signs (Past 12 Hours) Vital Signs Temp Pulse Pulse Resp BP BP Pulse Ox 01/06/22 12:07 36.5 C 68 18 134/68 95 01/06/22 07:34 36.4 C L 62 65 18 158/74 H 97 01/06/22 03:51 36.6 C 61 18 147/67 H 97 Laboratory Results 01/06/22 07:21 01/06/22 07:21 Diagnostic Findings Cholangiopancreatography MRI 01/06/22 10:37 MR MRCP HISTORY: elevated liver enzymes, inr, gallbladder sludge TECHNIQUE: MRCP of the abdomen was performed without contrast according to standard department protocol. COMPARISON STUDY: Abdominal ultrasound 10/18/2019. FINDINGS: Suboptimal evaluation of the abdomen due to the motion artifact. Moderate to severe cardiomegaly persists. There is a trace right pleural effusion. No definite hepatic or splenic masses. The adrenal glands and pancreas appear unremarkable. Dilated hepatic veins and IVC likely due to the chronic right heart dysfunction. No retroperitoneal lymphadenopathy. Multiple scattered T2 hyperintense bilateral renal lesions. These are technically indeterminate on this noncontrast study but likely represent cysts. Dominant lesion within the lower pole of the right kidney measures 5.7 cm. No definite gallbladder wall thickening. Probable small stones versus sludge within the gallbladder. This is difficult to assess due to the motion artifact. The common bile duct and main pancreatic duct are also not well visualized due to the motion artifact but do not appear dilated. Evaluation for filling defect within the common bile duct is nondiagnostic due to the motion artifact. IMPRESSION: 1. Difficult study to interpret due to the motion artifact. 2. However, the common bile duct and main pancreatic duct do not appear dilated. 3. Probable small stones versus sludge within the gallbladder. No gallbladder wall thickening. 4. Moderate to severe cardiomegaly, unchanged. 5. Additional findings as described above. ACT 112: Negative or not required by law. Electronically signed by: Blake Zaldivar M.D. 01/06/2022 9:25 AM Echocardiogram 01/05/22 left ventricular systolic function is mildly reduced (40-45%) The left ventricle is moderately dilated There is mild concentric left ventricular hypertrophy The left atrium is mildly dilated Moderate aortic regurgitation There is moderate mitral regurgitation There is moderate tricuspid regurgitation RVSP is elevated at 50-60 mmHg Mildly dilated ascending aorta The inferior vena cava is moderately dilated PG Care Time/CCT Total # of Minutes Spent Total Time Spent with Patient: Total time spent is greater than 50% in coordination of care (as documented) at patient's floor/unit and/or counseling patient: Coding Level of Care Code 71092 Subseq Hosp Care Lvl 3 Diagnoses CHF (congestive heart failure) I50.9 Heart failure chronicity: acute on chronic Heart failure type: unspecified Elevated troponin R77.8 Edema R60.9 Cardiomyopathy I42.9 Valvular heart disease I38 Total bilirubin, elevated R17 Elevated INR R79.1 Pneumonia J18.9 Laterality: unspecified laterality Lung location: unspecified part of lung Pneumonia type: due to unspecified organism (1) CHF (congestive heart failure) Heart failure chronicity: acute on chronic Heart failure type: unspecified Qualified Code(s): I50.9 - Heart failure, unspecified (2) Pneumonia Laterality: unspecified laterality Lung location: unspecified part of lung Pneumonia type: due to unspecified organism Qualified Code(s): J18.9 - Pneumonia, unspecified organism
[2022-01-06] MEDS: FUROSEMIDE 40 MG/4 ML VIAL IV SCH ×2 (15:34→20:30)
--- NOTE | 2022-01-06 15:37 | Electrocardiogram Report ---
Test Reason : Blood Pressure : / mmHG Vent. Rate : 059 BPM Atrial Rate : 059 BPM P-R Int : 230 ms QRS Dur : 124 ms QT Int : 498 ms P-R-T Axes : 089 215 050 degrees QTc Int : 493 ms Sinus bradycardia with 1st degree A-V block Right superior axis deviation (likely limb lead reversal) Left ventricular hypertrophy with QRS widening and repolarization abnormality Abnormal ECG When compared with ECG of 05-JAN-2022 21:23, (unconfirmed) Questionable change in QRS axis Confirmed by Aleksandr Alejandre ([id number]) on 01/06/2022 3:37:36 PM Referred By: REFERRED SELF Confirmed By:Dusty Alejandre
--- NOTE | 2022-01-06 18:27 | Cardiology Progress Note ---
Date of Service January 06, 2022 Assessment & Plan (1) CHF (congestive heart failure): (2) Elevated troponin: (3) Cardiomyopathy: (4) Valvular heart disease: Plan: 1. Decompensated systolic heart failure: Improved. He affected a good diuresis yesterday. He has affected a less dramatic diuresis today. He may require a higher dose of intravenous diuretic. Will see what his total output is for the day and consider increasing his dose for the morning. 80 mg twice daily intravenously may be more appropriate dose. Renal function has remained normal. 2. Dilated cardiomyopathy: Carvedilol increased to twice daily. We will continue the spironolactone and lisinopril currently. I did discuss with him switching from lisinopril to Entresto possibly at the time of discharge. There may be an opportunity to increase the doses of his carvedilol and lisinopril as well. 3. Chest pain: Currently has a sense of chest pressure. This is exertional in nature but may be related to his pulmonary vascular congestion. Unclear if he has had an ischemic evaluation. Still awaiting records from [facility]. 4. Elevated troponin: Very mild elevation. No rise suggestive of an acute coronary syndrome. Likely related to his chronic cardiomyopathy. 5. Valvular heart disease: He is known to have an element of aortic and mitral insufficiency. This does not appear to have changed significantly since 2019. If he has not affected a good diuresis today I would increase his Lasix to 80 mg IV twice daily. Admission and Anticipated Discharge Date Admission Date: January 05, 2022 Subjective This afternoon the patient claims to be feeling well. He states that he slept well last night albeit with the head of the bed elevated. He is able to walk around the [place] 3 times today and generally felt good but did report a mild dyspnea at the end. Feels that he is certainly not back to his baseline. Does have a sense of chest fullness and chest discomfort with activity as well. Review of Systems Review of Systems: Per HPI Physical Exam Physical Exam: The patient is alert and oriented. Mood and affect appeared normal. He answered all questions appropriately. HEENT: Pupils are equal and reactive to light and accommodation. Extraocular movements are intact. The sclerae are anicteric. Neuro: Cranial nerves intact Lungs: Normal respiratory effort. Only occasional crackle. No wheezing. Cardiac: Heart demonstrates a regular rate and rhythm. Normal S1 and S2. Holosystolic murmur with musical component in left axilla Pulses: The patient has palpable radial pulses bilaterally that are equal in intensity Extremities: There was no evidence of hypoperfusion. There is no cyanosis or clubbing. Mild to moderate lower extremity edema Skin: I did not appreciate any rashes on examination today. Results & Data ([facility]) Vital Signs (Past 12 Hours) Vital Signs Temp Pulse Pulse Resp BP BP Pulse Ox 01/06/22 15:56 36.5 C 61 22 148/71 H 92 01/06/22 15:16 63 01/06/22 12:07 36.5 C 68 18 134/68 95 01/06/22 07:34 36.4 C L 62 65 18 158/74 H 97 Laboratory Results Abnormal Lab Results 01/05/22 01/06/22 01/06/22 19:51 01:57 07:21 WBC 6.34 RBC 4.26 L Hgb 13.6 L Hct 41.8 L MCV 98.1 MCH 31.9 MCHC 32.5 RDW Std Deviation 52.4 H RDW Coeff of Matt 14.8 H Plt Count 173 MPV 10.5 H Immature Gran % (Auto) 0.2 Neut % (Auto) 72.9 Lymph % (Auto) 17.4 Storey % (Auto) 7.7 Eos % (Auto) 0.9 Baso % (Auto) 0.9 Neut # (Auto) 4.62 Lymph # (Auto) 1.10 L Storey # (Auto) 0.49 Eos # (Auto) 0.06 Baso # (Auto) 0.06 Immature Gran # (Auto) 0.01 Sodium Potassium Chloride Carbon Dioxide Anion Gap BUN Creatinine Est Cr Clr Drug Dosing Est GFR ( Amer) Est GFR (Non-Af Amer) BUN/Creatinine Ratio Glucose Calcium Magnesium Troponin I High Sens 52.4 H* 49.1 H 01/06/22 07:21 WBC RBC Hgb Hct MCV MCH MCHC RDW Std Deviation RDW Coeff of Matt Plt Count MPV Immature Gran % (Auto) Neut % (Auto) Lymph % (Auto) Storey % (Auto) Eos % (Auto) Baso % (Auto) Neut # (Auto) Lymph # (Auto) Storey # (Auto) Eos # (Auto) Baso # (Auto) Immature Gran # (Auto) Sodium 138 Potassium 3.9 Chloride 102 Carbon Dioxide 29 Anion Gap 7 BUN 19 Creatinine 1.31 Est Cr Clr Drug Dosing 74.9 Est GFR ( Amer) 64.8 Est GFR (Non-Af Amer) 55.9 BUN/Creatinine Ratio 14.5 Glucose 85 Calcium 9.4 Magnesium 2.1 Troponin I High Sens 46.8 H PG Care Time/CCT Total # of Minutes Spent Total Time Spent with Patient: Total time spent is greater than 50% in coordination of care (as documented) at patient's floor/unit and/or counseling patient: Coding Level of Care Code 25470 Subseq Hosp Care Lvl 2 Diagnoses CHF (congestive heart failure) I50.9 Heart failure chronicity: acute on chronic Heart failure type: unspecified Elevated troponin R77.8 Cardiomyopathy I42.9 Valvular heart disease I38 (1) CHF (congestive heart failure) Heart failure chronicity: acute on chronic Heart failure type: unspecified Qualified Code(s): I50.9 - Heart failure, unspecified
[2022-01-07] MEDS: HEPARIN SOD 5,000 UNIT/0.5 ML VIAL SQ SCH ×3 (06:30→21:26)
[2022-01-07 07:28] LABS: Basophils # (auto) 0.07 K/uL (0-0.2); Basophils % (auto) 1.2 %; Eosinophils # (auto) 0.07 K/uL (0-0.5); Eosinophils % (auto) 1.2 %; Hematocrit (blood only) 43.2 % (42-52); Hemoglobin 14.1 g/dL (14.0-18.0); Immature Granulocytes # (auto) 0.01 K/uL (0.00-0.02); Immature Granulocytes % (auto) 0.2 %; Lymphocytes % (auto) 21.5 %; Mean Corpuscular Hemoglobin 31.8 pg (25-34); Mean Corpuscular Hgb Conc 32.6 g/dL (32-36); Mean Corpuscular Volume 97.3 fL (80-100); Mean Platelet Volume 10.8 fL (7.4-10.4); Monocytes # (auto) 0.59 K/uL (0.11-0.59); Monocytes % (auto) 9.8 %; Neutrophils % (auto) 66.1 %; Platelet Count 175 K/uL (130-400); RDW Coefficient of Variation 14.6 % (11.5-14.5); RDW Standard Deviation 51.9 fL (36.4-46.3); Red Blood Count 4.44 M/uL (4.7-6.1); White Blood Count 6.04 K/uL (4.8-10.8)
[2022-01-07 08:05] LABS: Calcium 9.4 mg/dl (8.5-10.1); Chol HDL Ratio 3.1 (0-5); Creatinine Clr Calc Pharmacy 77.1 ml/min; Est GFR (African American) 67.3 ml/min; Est GFR (Non-African American) 58.1 ml/min; Magnesium 2.1 mg/dl (1.7-2.4); Potassium 3.7 mmol/L (3.5-5.1)
[2022-01-07] MEDS: SPIRONOLACTONE 25 MG TAB PO SCH (08:08)
[2022-01-07] MEDS: carvediloL 12.5 MG TAB PO SCH ×2 (08:08→20:59)
[2022-01-07] MEDS: lisinopril 10 MG TAB PO SCH (08:09)
[2022-01-07] MEDS: FUROSEMIDE 40 MG/4 ML VIAL IV SCH ×2 (08:09→21:02)
[2022-01-07] MEDS: ASPIRIN 81 MG ECTAB PO SCH (08:09)
[2022-01-07] MEDS ORDERED: FUROSEMIDE 40 MG/4 ML VIAL IV ONE (09:00)
--- NOTE | 2022-01-07 09:31 | XRay Report ---
XR chest 2V PA/lateral CLINICAL HISTORY: f/u chf COMPARISON STUDY: Chest CT October 17, 2019. Chest radiograph January 05, 2022. FINDINGS: No pneumothorax or pleural effusion is identified. Marked cardiomegaly is unchanged. Pulmon andrew edema has slightly improved. No consolidation to suggest pneumonia. IMPRESSION: Stable marked cardiomegaly. Slight improvement in pulmonary edema. ACT 112: Negative or not required by law. Electronically signed by: Real Garcia M.D. 01/07/2022 9:29 AM
--- NOTE | 2022-01-07 11:58 | Hospitalist Progress Note ---
Date of Service January 07, 2022 Assessment & Plan (1) CHF (congestive heart failure): Plan: Acute on chronic biventricular heart failure exacerbation with HFrEF - elevated BNP with hypoxia, chest pain, increase in swelling of legs and nausea - Patient does not weigh himself daily - On 01/05, Given 100mg IV Lasix by EMD with f/u dose of Lasix 60mg IV at 1700 - Provide home medications of Lisinopril and Spironolactone - ECHO updated as above -- worsening RVSP since last echo and slightly improved LV EF - Consult Cardiology for re-evaluation- he previously declined AICD and has not had a cath in the past- appreciate cardiology assistance * Seen by Dr. Alejandre on 01/05, agrees with diuresis, Coreg, and recommends transitioning from Lisinopril to Entresto in coming days - Continue diuresis with Lasix IV + Spironolactone for right sided symptoms with goal net neg of ~1L - Will benefit from outpatient heart failure program referral - Lasix increased today to 80mg IV BID by Dr. Alejandre, continue to monitor output, both clinical and radiologic improvement (2) Elevated troponin: Plan: HScTNI 48 on arrival with 3 hour recheck at 49.7 - This is likely relates to myocardial injury secondary to type II with hypoxia, underlying structural heart disease, and volume overload - HS Trop 49.7 --> 52.4 -->46.8 - ECG without dynamic ST changes - Cardiology following, echo updated as above - Continue ASA - Lipid panel this morning demonstrates well controlled lipids - Order placed to obtain cardiology records from [place] (3) Edema: Plan: Likely related to HF - history of travel on plane and trains approx every 2 weeks - No calf pain - venous dopplers negative for dvt (4) Cardiomyopathy: Plan: As above - with previous EF 30-35% with estimated RVSP of 40-50 and global hypokinesis of the LV - Change his Carvedilol to BID dosing- also has not had a dose increase since Sep - Diurese as above - follow symptoms, volume status, and hemodynamics - Continue JUDE with plans to transition to Entresto in coming days (5) Valvular heart disease: Plan: AR, MR, TR - ECHO updated (6) Total bilirubin, elevated: Plan: This remains >4, his LFTs are normal and ALKPo4 are normal on this admission - had ultrasound performed in 2019 with noted sludge in gallbladder without stones - noted hepatic congestion likely related to #1 - MRCP as above, no CBD dilatation, gallstones v sludge in GB, no s/sx of acute cholecystitis - Had hepatitis labs performed 2019 that were negative (7) Elevated INR: Plan: As above- not on anticoagulation - chronic currently 1.6 with elevated PT 16.6 - As above Plan: Continue diuresis as above with increased dose of Lasix [facility] Anticipate home tomorrow Referral to heart failure program at D/C Will also need an updated sleep study to qualify him for CPAP Repeat labs in AM Above plan of care will be d/w Dr. Bonds Admission and Anticipated Discharge Date Admission Date: January 05, 2022 Subjective Patient seen on daily rounds this morning. He is resting comfortably in bed and reports feeling better. Definitely notes an improvement in his breathing from admission. Was up walking the halls yesterday, did report towards the end of walking that he did have some dyspnea. He also reported some chest pressure, no chest pain at present. Unknown if he has had an ischemic work up--[place] [facility] Leg edema is greatly approved. Notes that has been diagnosed in the past with JORD[facility] @ [facility] but does not wear a CPAP. Review of Systems Review of Systems: All systems reviewed and are unremarkable except as noted in HPI and below. +SAHU, chest pain with exertion Denies fever, chills, fatigue, headache, nasal congestion, sore throat, cough, chest pain, palpitations, abdominal pain, n/v/d, constipation, dysuria, hematuria, frequency, back pain, joint pain or swelling, easy bruising or b leeding, skin lesions or rashes. Physical Exam 2 Physical Exam: GENERAL: 66 yo well-developed, well-nourished AAM. NAD. LUNGS: Nonlabored. Bibasilar crackles. No wheezes or rhonchi. CARDIOVASCULAR: Regular rate and rhythm. blowing holosystolic murmur grade 4/6 ABDOMEN: Soft, non-tender and non-distended. BS normal x 4 quad. EXTREMITIES: Trace pitting edema in RLE and no edema in LLE. Non-tender. Peripheral pulses +2/4. NEUROLOGIC: A&O x3 PSYCHIATRIC: Cooperative. Appropriate mood and affect. SKIN: Warm, dry, intact. No rashes or lesions. Results & Data Results & Data ([facility]) Vital Signs (Past 12 Hours) Vital Signs Temp Pulse Pulse Resp BP BP Pulse Ox 01/07/22 08:03 36.5 C 65 18 152/69 H 91 01/07/22 08:00 66 01/07/22 03:00 36.8 C 62 20 144/80 H 93 Laboratory Results 01/07/22 06:30 01/07/22 06:30 Diagnostic Findings Chest X-Ray 01/07/22 08:01 XR chest 2V PA/lateral CLINICAL HISTORY: f/u chf COMPARISON STUDY: Chest CT October 17, 2019. Chest radiograph January 05, 2022. FINDINGS: No pneumothorax or pleural effusion is identified. Marked cardiomegaly is unchanged. Pulmonary edema has slightly improved. No consolidation to suggest pneumonia. IMPRESSION: Stable marked cardiomegaly. Slight improvement in pulmonary edema. ACT 112: Negative or not required by law. Electronically signed by: Real Garcia M.D. 01/07/2022 9:29 AM ECG Additional Comments: tele: sinus on monitor PG Care Time/CCT Total # of Minutes Spent Total Time Spent with Patient: Total time spent is greater than 50% in coordination of care (as documented) at patient's floor/unit and/or counseling patient: Coding Level of Care Code 25423 Subseq Hosp Care Lvl 2 Diagnoses CHF (congestive heart failure) I50.9 Heart failure chronicity: acute on chronic Heart failure type: unspecified Elevated troponin R77.8 Edema R60.9 Cardiomyopathy I42.9 Valvular heart disease I38 Total bilirubin, elevated R17 Elevated INR R79.1 (1) CHF (congestive heart failure) Heart failure chronicity: acute on chronic Heart failure type: unspecified Qualified Code(s): I50.9 - Heart failure, unspecified
--- NOTE | 2022-01-07 14:20 | Cardiology Progress Note ---
Date of Service January 07, 2022 Assessment & Plan (1) CHF (congestive heart failure): (2) Elevated troponin: (3) Cardiomyopathy: (4) Valvular heart disease: Plan: 1. Decompensated systolic heart failure: Overall improved. Will continue diuresis today. I increased his Lasix to 80 mg twice daily. If he loses another L or 2 he will likely be better compensated wound might be able to transition him back to an oral regimen. 2. Dilated cardiomyopathy: Continue current carvedilol, lisinopril and spironolactone. Will transition him to Entresto in the outpatient setting. 3. Chest pain: Resolved. Likely related to pulmonary vascular congestion. Still awaiting records from [facility] regarding any prior evaluation of his coronaries. 4. Elevated troponin: Very mild elevation. No rise suggestive of an acute coronary syndrome. Likely related to his chronic cardiomyopathy. 5. Valvular heart disease: He is known to have an element of aortic and mitral insufficiency. This does not appear to have changed significantly since 2019. I have sent a referral for enrollment in the Outpatient Heart failure Clinic. Admission and Anticipated Discharge Date Admission Date: January 05, 2022 Subjective This morning patient claimed he feeling well. He had some difficulty sleeping last night. However, this was not due to orthopnea or paroxysmal nocturnal dyspnea. He did sleep somewhat upright, this appears to be for comfort reasons and perhaps some anxiety over his previous experience with PND. He was able to ambulate around the [place] yesterday 3 times. Some mild dyspnea. No dizziness or lightheadedness. No sense of palpitation. No chest pains. Review of Systems Review of Systems: Per HPI Physical Exam Physical Exam: The patient is alert and oriented. Mood and affect appeared normal. He answered all questions appropriately. HEENT: Pupils are equal and reactive to light and accommodation. Extraocular movements are intact. The sclerae are anicteric. Neuro: Cranial nerves intact Lungs: Normal respiratory effort. Results & Data ([facility]) Vital Signs (Past 12 Hours) Vital Signs Temp Pulse Pulse Resp BP BP Pulse Ox 01/07/22 12:18 36.6 C 62 19 121/62 94 01/07/22 08:03 36.5 C 65 18 152/69 H 91 01/07/22 08:00 66 01/07/22 03:00 36.8 C 62 20 144/80 H 93 Laboratory Results Abnormal Lab Results 01/07/22 01/07/22 06:30 06:30 WBC 6.04 RBC 4.44 L Hgb 14.1 Hct 43.2 MCV 97.3 MCH 31.8 MCHC 32.6 RDW Std Deviation 51.9 H RDW Coeff of Matt 14.6 H Plt Count 175 MPV 10.8 H Immature Gran % (Auto) 0.2 Neut % (Auto) 66.1 Lymph % (Auto) 21.5 Walsh % (Auto) 9.8 Eos % (Auto) 1.2 Baso % (Auto) 1.2 Neut # (Auto) 4.00 Lymph # (Auto) 1.30 Walsh # (Auto) 0.59 Eos # (Auto) 0.07 Baso # (Auto) 0.07 Immature Gran # (Auto) 0.01 Sodium 135 L Potassium 3.7 Chloride 99 Carbon Dioxide 29 Anion Gap 7 BUN 19 Creatinine 1.27 Est Cr Clr Drug Dosing 77.1 Est GFR ( Amer) 67.3 Est GFR (Non-Af Amer) 58.1 BUN/Creatinine Ratio 15.0 Glucose 84 Calcium 9.4 Magnesium 2.1 Triglycerides 54 Cholesterol 111 LDL Cholesterol, Calc 64 VLDL Cholesterol, Calc 11 HDL Cholesterol 36 Cholesterol/HDL Ratio 3.1 PG Care Time/CCT Total # of Minutes Spent Total Time Spent with Patient: Total time spent is greater than 50% in coordination of care (as documented) at patient's floor/unit and/or counseling patient: Coding Level of Care Code 53738 Subseq Hosp Care Lvl 2 Diagnoses CHF (congestive heart failure) I50.9 Heart failure chronicity: acute on chronic Heart failure type: unspecified Elevated troponin R77.8 Cardiomyopathy I42.9 Valvular heart disease I38 (1) CHF (congestive heart failure) Heart failure chronicity: acute on chronic Heart failure type: unspecified Qualified Code(s): I50.9 - Heart failure, unspecified
--- NOTE | 2022-01-07 18:02 | Electrocardiogram Report ---
Test Reason : Blood Pressure : / mmHG Vent. Rate : 066 BPM Atrial Rate : 066 BPM P-R Int : 226 ms QRS Dur : 132 ms QT Int : 470 ms P-R-T Axes : 083 -40 136 degrees QTc Int : 492 ms Sinus rhythm with 1st degree A-V block Left axis deviation Right bundle branch block Left ventricular hypertrophy with repolarization abnormality Abnormal ECG When compared with ECG of 06-JAN-2022 05:42, Right bundle branch block is now Present Confirmed by Aleksandr Alejandre ([id number]) on 01/07/2022 6:02:18 PM Referred By: REFERRED SELF Confirmed By:Dusty Alejandre
[2022-01-08] MEDS: HEPARIN SOD 5,000 UNIT/0.5 ML VIAL SQ SCH ×3 (05:56→21:54)
[2022-01-08 06:57] LABS: Basophils # (auto) 0.06 K/uL (0-0.2); Eosinophils # (auto) 0.08 K/uL (0-0.5); Eosinophils % (auto) 1.4 %; Hematocrit (blood only) 43.2 % (42-52); Hemoglobin 14.5 g/dL (14.0-18.0); Immature Granulocytes # (auto) 0.01 K/uL (0.00-0.02); Immature Granulocytes % (auto) 0.2 %; Lymphocytes # (auto) 1.31 K/uL (1.2-3.4); Lymphocytes % (auto) 22.2 %; Mean Corpuscular Hemoglobin 32.2 pg (25-34); Mean Corpuscular Hgb Conc 33.6 g/dL (32-36); Mean Corpuscular Volume 95.8 fL (80-100); Mean Platelet Volume 10.5 fL (7.4-10.4); Monocytes # (auto) 0.57 K/uL (0.11-0.59); Monocytes % (auto) 9.7 %; Neutrophils # (auto) 3.87 K/uL (1.4-6.5); Neutrophils % (auto) 65.5 %; Platelet Count 192 K/uL (130-400); RDW Coefficient of Variation 14.6 % (11.5-14.5); RDW Standard Deviation 50.9 fL (36.4-46.3); Red Blood Count 4.51 M/uL (4.7-6.1)
[2022-01-08 07:26] LABS: BUN Creatinine Ratio 15.1 (10-20); Calcium 9.6 mg/dl (8.5-10.1); Creatinine Clr Calc Pharmacy 76.3 ml/min; Est GFR (Non-African American) 58.6 ml/min; Potassium 3.8 mmol/L (3.5-5.1)
[2022-01-08] MEDS: ASPIRIN 81 MG ECTAB PO SCH (07:46)
[2022-01-08] MEDS: carvediloL 12.5 MG TAB PO SCH ×2 (07:46→21:53)
[2022-01-08] MEDS: lisinopril 10 MG TAB PO SCH (07:47)
[2022-01-08] MEDS: FUROSEMIDE 40 MG/4 ML VIAL IV SCH ×2 (07:47→20:17)
[2022-01-08] MEDS: SPIRONOLACTONE 25 MG TAB PO SCH (07:47)
--- NOTE | 2022-01-08 11:35 | Hospitalist Progress Note ---
Date of Service January 08, 2022 Assessment & Plan (1) CHF (congestive heart failure): Plan: Acute on chronic systolic/diastolic CHF exacerbation (right and left sided) - elevated BNP (2951) with hypoxia, Radiographic evidence of CHF, orthopnea/ PND, chest pain, increase in swelling of legs - has been receiving IV Lasix (80mg BID) with favorable response-- FB -4.5L, d own 10lbs and improvement in SAHU/hypoxemia. - continued on Lisinopril, Aldactone, Coreg - ECHO updated: EF 40-45%, Grade I DD, mild global hypokinesis of left ventricle. Moderate AR, MR, TR - Consult Cardiology for re-evaluation- he previously declined AICD and has not had a cath in the past- appreciate cardiology assistance * Seen by Dr. Alejandre-- recommends transitioning from Lisinopril to Entresto in coming days and transitioning from IV Lasix to oral (at increased dose of 80mg bid) - goal =net neg of ~1L - Will benefit from outpatient heart failure program referral-- appreciate assistance from Vonnie Garsia PA-C - plan for potential D/C tomorrow? (2) Elevated troponin: Plan: HScTNI 48 on arrival with 3 hour recheck at 49.7 - This is likely relates to myocardial injury secondary to type II with hypoxia, underlying structural heart disease, and volume overload - HS Trop 49.7 --> 52.4 -->46.8 - ECG without dynamic ST changes - Cardiology following, echo updated as above - Continue ASA - Lipid panel this morning demonstrates well controlled lipids - Order placed to obtain cardiology records from [place] (3) Edema: Plan: Likely related to HF - history of travel on plane and trains approx every 2 weeks - No calf pain - venous dopplers negative for dvt (4) Total bilirubin, elevated: Plan: This remains >4, his LFTs are normal and ALKPo4 are normal on this admission (chronic with review of records) - had ultrasound performed in 2019 with noted sludge in gallbladder without stones - noted hepatic congestion likely related to #1 - MRCP as above, no CBD dilatation, gallstones v sludge in GB, no s/sx of acute cholecystitis - Had hepatitis labs performed 2019 that were negative - Exact etiology unclear but elevated direct bilirubin. Will obtain alpha-1 antitrypsin antibody along with a copper level and a right upper quadrant ultrasound to further assess for cirrhotic changes of the liver --suspect cirrhosis given elevated INR as well - Patient is not on statin therapy. Would avoid this - would benefit from GI referral as OP (5) Cardiomyopathy: Plan: As above - with previous EF 30-35% with estimated RVSP of 40-50 and global hypokinesis of the LV (now with improved EF of 40-45%) - Changed his Carvedilol to BID dosing- also has not had a dose increase since Sep - Diurese as above - follow symptoms, volume status, and hemodynamics - stop lisinopril to allow for appropriate washout in order to transition to Entresto (6) Valvular heart disease: Plan: AR, MR, TR (7) Elevated INR: Plan: As above- not on anticoagulation - chronic currently 1.6 with elevated PT 16.6 - As above Plan: likely D/C tomorrow Plan D/W Dr. Alejandre and Vonnie Garsia PAAlisa Above plan of care will be d/w Dr. Bonds Admission and Anticipated Discharge Date Admission Date: January 05, 2022 Subjective Patient seen on daily rounds today. Has longstanding CHF (systolic) with acute decompensation over the past 2 weeks prompting his admission. Patient reports compliance with his medications and hasn't eaten anything as of recent with added sodium. Patient is responding favorably to IV diuresis. His fluid balance is -4.5 L and he is down approximately 10.7 pounds. Cardiology is following. Patient's high-sensitivity troponin has been elevated (48-49.7). Denies chest pain. No acute EKG changes. Deemed a type II event likely secondary to CHF. Overall, patient reports improvement in symptoms. Able to ambulate to and from the bathroom without getting short of breath. Still has some mild orthopnea. Denies PND. Review of Systems Review of Systems: All systems reviewed and are unremarkable except as noted in HPI and below Denies fevers, chills, headache, nasal congestion, sore throat, cough, chest pain, palpitations, orthopnea, PND, abdominal pain, nausea, vomiting, diarrhea, constipation, dysuria, hematuria, frequency, back pain, joint pain or swelling, easy bruising or bleeding, skin lesions or rashes. Physical Exam Physical Exam: General: Resting comfortably in his hospital bed. NAD. HEENT: Head is AT/NC. Buccal mucosa is moist and pink Neck: No JVD. + Hepatojugular reflex Cardiac: RRR with 2/6 diastolic murmur Lungs: Speaking full sentences on ambient air. Normal respiratory effort. Bibasilar crackles and end expiratory wheezes in the bases Abdomen: Normoactive X4. Soft and nontender in all quadrants. Extremities: Trace pitting edema of the bilateral lower extremities Neuro: A&O X4. Cranial nerves II through XII are grossly intact. No focal neuro deficits Skin: No obvious skin lesions or rashes Psych: Appropriate affect. Pleasant and cooperative Results & Data Results & Data ([facility]) Vital Signs (Past 12 Hours) Vital Signs Temp Pulse Pulse Pulse Resp BP BP 01/08/22 07:41 36.3 C L 70 18 162/69 H 01/08/22 07:16 66 01/08/22 02:43 36.6 C 60 17 134/66 Pulse Ox 01/08/22 07:41 93 01/08/22 07:16 01/08/22 02:43 93 Laboratory Results 01/08/22 06:04 01/08/22 06:04 PG Care Time/CCT Total # of Minutes Spent Total Time Spent with Patient: Total time spent is greater than 50% in coordination of care (as documented) at patient's floor/unit and/or counseling patient: Coding Level of Care Code 68574 Subseq Hosp Care Lvl 2 Diagnoses CHF (congestive heart failure) I50.9 Heart failure chronicity: acute on chronic Heart failure type: unspecified Elevated troponin R77.8 Edema R60.9 Cardiomyopathy I42.9 Valvular heart disease I38 Total bilirubin, elevated R17 Elevated INR R79.1 (1) CHF (congestive heart failure) Heart failure chronicity: acute on chronic Heart failure type: unspecified Qualified Code(s): I50.9 - Heart failure, unspecified
--- NOTE | 2022-01-08 14:01 | Cardiology Progress Note ---
Date of Service January 08, 2022 Assessment & Plan (1) CHF (congestive heart failure): (2) Elevated troponin: (3) Cardiomyopathy: (4) Valvular heart disease: Plan: 1. Decompensated systolic heart failure: He affected a good diuresis yesterday. He seems to have an interest in staying overnight. I would continue intravenous diuretics tonight and tomorrow morning and at the time of discharge she can probably be sent home on 80 mg of Lasix twice daily with instructions to monitor his weight and follow up with a BNP early next week. 2. Dilated cardiomyopathy: Continue current carvedilol, lisinopril and spironolactone. Will transition him to Entresto in the outpatient setting. 3. Chest pain: Resolved. Likely related to pulmonary vascular congestion. Still awaiting records from [facility] regarding any prior evaluation of his coronaries. 4. Elevated troponin: Very mild elevation. No rise suggestive of an acute coronary syndrome. Likely related to his chronic cardiomyopathy. 5. Valvular heart disease: He is known to have an element of aortic and mitral insufficiency. This does not appear to have changed significantly since 2019. If he is feeling well, I think he could safely be discharged tomorrow. He can follow up with myself in 1-2 weeks. We will also make some arrangements for him to follow-up on an outpatient basis with the Heart failure Clinic. I will be away from the hospital tomorrow. If there are questions regarding his care please contact the on-call [facility] perforator operator. Thank you Admission and Anticipated Discharge Date Admission Date: January 05, 2022 Subjective This morning patient claims to be feeling well. He has ambulated around the [place] already this morning and did so several times yesterday. Generally speaking he feels quite good with only minimal dyspnea. Certainly improved. He was able to sleep more flat last night. His appetite is also returned. Less abdominal distention and discomfort. Review of Systems Review of Systems: Per HPI Physical Exam Physical Exam: The patient is alert and oriented. Mood and affect appeared normal. He answered all questions appropriately. HEENT: Pupils are equal and reactive to light and accommodation. Extraocular movements are intact. The sclerae are anicteric. Lungs: Normal respiratory effort. Occasional crackles in the bases bilaterally. No expiratory wheezing. Neuro: Cranial nerves intact Lungs: Normal respiratory effort. Results & Data ([facility]) Vital Signs (Past 12 Hours) Vital Signs Temp Pulse Pulse Pulse Resp BP BP 01/08/22 11:48 36.4 C L 60 18 123/63 01/08/22 07:41 36.3 C L 70 18 162/69 H 01/08/22 07:16 66 01/08/22 02:43 36.6 C 60 17 134/66 Pulse Ox 01/08/22 11:48 92 01/08/22 07:41 93 01/08/22 07:16 01/08/22 02:43 93 Laboratory Results Abnormal Lab Results 01/08/22 01/08/22 06:04 06:04 WBC 5.90 RBC 4.51 L Hgb 14.5 Hct 43.2 MCV 95.8 MCH 32.2 MCHC 33.6 RDW Std Deviation 50.9 H RDW Coeff of Matt 14.6 H Plt Count 192 MPV 10.5 H Immature Gran % (Auto) 0.2 Neut % (Auto) 65.5 Lymph % (Auto) 22.2 Jefferson % (Auto) 9.7 Eos % (Auto) 1.4 Baso % (Auto) 1.0 Neut # (Auto) 3.87 Lymph # (Auto) 1.31 Jefferson # (Auto) 0.57 Eos # (Auto) 0.08 Baso # (Auto) 0.06 Immature Gran # (Auto) 0.01 Sodium 136 Potassium 3.8 Chloride 99 Carbon Dioxide 30 Anion Gap 7 BUN 19 Creatinine 1.26 Est Cr Clr Drug Dosing 76.3 Est GFR ( Amer) 68.0 Est GFR (Non-Af Amer) 58.6 BUN/Creatinine Ratio 15.1 Glucose 79 Calcium 9.6 Magnesium 2.0 PG Care Time/CCT Total # of Minutes Spent Total Time Spent with Patient: Total time spent is greater than 50% in coordination of care (as documented) at patient's floor/unit and/or counseling patient: Coding Level of Care Code 74395 Subseq Hosp Care Lvl 2 Diagnoses CHF (congestive heart failure) I50.9 Heart failure chronicity: acute on chronic Heart failure type: unspecified Elevated troponin R77.8 Cardiomyopathy I42.9 Valvular heart disease I38 (1) CHF (congestive heart failure) Heart failure chronicity: acute on chronic Heart failure type: unspecified Qualified Code(s): I50.9 - Heart failure, unspecified
--- NOTE | 2022-01-08 17:27 | Ultrasound Report ---
ABDOMINAL ULTRASOUND, RIGHT UPPER QUADRANT HISTORY: hyperbilirubinemia. COMPARISON: MRCP 01/06/2022. Abdominal ultrasound 10/18/2019 FINDINGS: Pancreas: The pancreas demonstrates a normal echotexture. Liver: 22 cm in length. Dilated intrahepatic veins are again noted. No hepatic masses or intrahepatic bile duct dilatation. Gallbladder: No gallbladder wall thickening. The gallbladder appears slightly contracted. There is sl udge and a few small stones within the gallbladder. There is also a 3 mm gallbladder polyp. CBD: 6 mm. Right kidney: No hydronephrosis. A few cysts with the largest measuring 6.1 cm at the lower pole. IMPRESSION: 1. Sludge and a few small stones within the gallbladder. No gallbladder wall thickening. 2. Normal caliber common bile duct. 3. Hepatomegaly, unchanged. ACT 112: Negative or not required by law. Electronically signed by: Blake Zaldivar M.D. 01/08/2022 5:25 PM
[2022-01-09 06:05] LABS: Albumin Level 3.9 gm/dl (3.4-5.0); BUN Creatinine Ratio 17.2 (10-20); Bilirubin Direct 0.4 mg/dl (0-0.2); Bilirubin,Total 2.9 mg/dl (0.2-1.0); Calcium 9.7 mg/dl (8.5-10.1); Creatinine Clr Calc Pharmacy 75.1 ml/min; Est GFR (African American) 66.7 ml/min; Est GFR (Non-African American) 57.5 ml/min; Total Protein 8.2 gm/dl (6.0-8.3)
[2022-01-09] MEDS: HEPARIN SOD 5,000 UNIT/0.5 ML VIAL SQ SCH (06:31)
[2022-01-09] MEDS ORDERED: FUROSEMIDE 80 MG TAB PO SCH (09:00)
--- NOTE | 2022-01-09 10:06 | XRay Report ---
XR chest 2V PA/lateral CLINICAL HISTORY: chf-- post diuresis COMPARISON STUDY: Chest radiograph January 07, 2022. FINDINGS: There is no pneumothorax or pleural effusion. Marked cardiomegaly is unchanged. Mild inters titial thickening persists. There may be minimal right lung airspace opacity. The findings favor mild pulmonary edema. IMPRESSION: No significant change in mild pulmonary edema. Marked cardiomegaly. ACT 112: Negative or not required by law. Electronically signed by: Real Garcia M.D. 01/09/2022 10:05 AM
[2022-01-09] MEDS: ASPIRIN 81 MG ECTAB PO SCH (10:19)
[2022-01-09] MEDS: carvediloL 12.5 MG TAB PO SCH (10:20)
[2022-01-09] MEDS: SPIRONOLACTONE 25 MG TAB PO SCH (10:21)
--- NOTE | 2022-01-09 13:39 | Discharge Summary ---
Date of Service January 09, 2022 Admission HPI Per Admitting Provider 66 YOM with past medical history of: ICM, HRrEF, HTN, HLD, elevated INR, nausea, elevated bilirubin. Patient has not been followed by cardiology routinely. Patient comes to the EMD via EMS for complaints of shortness of breath and left sided chest pain. The patient endorses that for the past 2 weeks he has been having increased dyspnea and orthopnea, when he would lay flat he would not be able to breath and get up with "anxiety" and have to sit up to catch his breath. He has been sleeping in his recliner. Today this changed with addition of chest pain and not being able to catch his breath. He received an ASA and Nitroglycerine spray SL and oxygen, he reports that this made him feel better. Patient also endorses that 2 weeks ago he had increase in nausea with loss off appetite and generalized lower quadrant abdominal pain, with reporting stools as dark, however with no blood noted and no vomitting. In the EMD the patient received routine labs to include HScTNI, CXR and ECG done. His HScTNI was elevated at 44, ECG is without dynamic changes. He was given 100mg IV Lasix and has voided once since then but it was not measured. He feels his breathing is improved currently and is on 2LNC with Spo2 97%. The patient will be admitted to PCU, will repeat HScTNI now, ECHO, ultrasound his lower extremities rule out DVT, and will obtain MRCP for his chronically elevated liver enzymes/INR. The patient was last seen here in Sep 2019 with very similar presentation as well as laboratory abnormalities. He did go to Urgent Care last Tuesday for his dyspnea and reports that he had a CXR done and was placed on Augmentin for 10 days for pneumonia- will change this to Rocephin for 3 days to complete course, but suspicion is low. COVID and Influenza A/B tests on admission are: NEGATIVE Principal Diagnosis 1. Acute Uncompensated CHF 2. NSTEMI- Type II event 3. Hyperbilirubinemia Discharge Exam General: Resting comfortably in his hospital bed. NAD. HEENT: Head is AT/NC. Buccal mucosa is moist and pink Neck: No JVD. + Hepatojugular reflex Cardiac: RRR with 2/6 diastolic murmur Lungs: Speaking full sentences on ambient air. Normal respiratory effort. Improved air exchange throughout without wheezes, rales or rhonchi. Bibasilar crackles have since resolved Abdomen: Normoactive X4. Soft and nontender in all quadrants. Extremities: Trace pitting edema of the bilateral lower extremities Neuro: A&O X4. Cranial nerves II through XII are grossly intact. No focal neuro deficits Skin: No obvious skin lesions or rashes Psych: Appropriate affect. Pleasant and cooperative Discharge Data Allergies Allergy/AdvReac Type Severity Reaction Status Date / Time No Known Allergies Allergy Unverified 01/05/22 09:06 Consultations 01/05/22 12:00 ED Decision to Admit Stat 01/05/22 13:06 Consult Cardiology Routine Assessment & Plan (1) CHF (congestive heart failure): (2) Elevated troponin: (3) Cardiomyopathy: (4) Valvular heart disease: Plan: 1. Decompensated systolic heart failure: He affected a good diuresis yesterday. He seems to have an interest in staying overnight. I would continue intravenous diuretics tonight and tomorrow morning and at the time of discharge she can probably be sent home on 80 mg of Lasix twice daily with instructions to monitor his weight and follow up with a BNP early next week. 2. Dilated cardiomyopathy: Continue current carvedilol, lisinopril and spironolactone. Will transition him to Entresto in the outpatient setting. 3. Chest pain: Resolved. Likely related to pulmonary vascular congestion. Still awaiting records from [facility] regarding any prior evaluation of his coronaries. 4. Elevated troponin: Very mild elevation. No rise suggestive of an acute coronary syndrome. Likely related to his chronic cardiomyopathy. 5. Valvular heart disease: He is known to have an element of aortic and mitral insufficiency. This does not appear to have changed significantly since 2019. If he is feeling well, I think he could safely be discharged tomorrow. He can follow up with myself in 1-2 weeks. We will also make some arrangements for him to follow-up on an outpatient basis with the Heart failure Clinic. I will be away from the hospital tomorrow. If there are questions regarding his care please contact the on-call [facility] pharmacology teacher. Thank you Ordered Studies 01/05/22 10:09 US venous doppler LE BI Routine IMPRESSION: No DVT within the right or left lower extremity. 01/06/22 10:37 MR MRCP Routine IMPRESSION: 1. Difficult study to interpret due to the motion artifact. 2. However, the common bile duct and main pancreatic duct do not appear dilated. 3. Probable small stones versus sludge within the gallbladder. No gallbladder wall thickening. 4. Moderate to severe cardiomegaly, unchanged. 5. Additional findings as described above. 01/08/22 14:03 US liver Routine FINDINGS: Pancreas: The pancreas demonstrates a normal echotexture. Liver: 22 cm in length. Dilated intrahepatic veins are again noted. No hepatic masses or intrahepatic bile duct dilatation. Gallbladder: No gallbladder wall thickening. The gallbladder appears slightly co ntracted. There is sludge and a few small stones within the gallbladder. There is also a 3 mm gallbladder polyp. CBD: 6 mm. Right kidney: No hydronephrosis. A few cysts with the largest measuring 6.1 cm at the lower pole. IMPRESSION: 1. Sludge and a few small stones within the gallbladder. No gallbladder wall thickening. 2. Normal caliber common bile duct. 3. Hepatomegaly, unchanged. Hospital Course (1) CHF (congestive heart failure): Acute on chronic systolic/diastolic CHF exacerbation (right and left sided) - elevated BNP (2951) with hypoxia, Radiographic evidence of CHF, orthopnea/ PND, chest pain, increase in swelling of legs - has been receiving IV Lasix (80mg BID) with favorable response-- FB -4.5L, down 10lbs and improvement in SAHU/hypoxemia. - continued Aldactone, Coreg (increased to BID). Lisinopril has since been stopped for appropriate washout to transition to Entresto - ECHO updated: EF 40-45%, Grade I DD, mild global hypokinesis of left ventricle. Moderate AR, MR, TR - Consult Cardiology for re-evaluation- he previously declined AICD and has not had a cath in the past- appreciate cardiology assistance * Seen by Dr. Alejandre-- recommends transitioning from Lisinopril to Entresto in coming days and transitioning from IV Lasix to oral (at increased dose of 80mg bid) - goal =net neg of ~1L - Will benefit from outpatient heart failure program referral-- appreciate assistance from Vonnie Garsia PA-C -Overall, has shown significant favorable response. Again, he is down 10 pounds with a cumulative fluid balance of -4.5 L. He is no longer dyspneic with exertion. He denies orthopnea or PND. The edema in his lower extremities has since resolved. He had a two-step pulse oximetry done today showing no desaturation or need for supplemental oxygen. He is medically and hemodynamically stable for discharge to home with continued Lasix (at increased dose of 80 mg twice daily), continued Coreg, continued Aldactone, and transition of lisinopril to Entresto (to start on Tuesday for appropriate washout period). He has not been started on any potassium supplementation as his potassium remains normal (at 4.0) despite being diuresed with Lasix 80 mg IV every 12 hours. Would recommend follow-up metabolic panel next week to trend and add supplementation at that point if needed. (Order provided for patient to have labs drawn prior to his follow-up with cardiology). (2) Elevated troponin: HScTNI 48 on arrival with 3 hour recheck at 49.7 - This is likely relates to myocardial injury secondary to type II with hypoxia, underlying structural heart disease, and volume overload - HS Trop 49.7 --> 52.4 -->46.8 - ECG without dynamic ST changes - Cardiology following, echo updated as above - Continue ASA - Lipid panel demonstrates well controlled lipids - Order placed to obtain cardiology records from [place]-- still not available for review (3) Edema: Likely related to HF - history of travel on plane and trains approx every 2 weeks - No calf pain - venous dopplers negative for dvt (4) Total bilirubin, elevated: This remains >4, his LFTs are normal and ALKPo4 are normal on this admission (chronic with review of records) - had ultrasound performed in 2019 with noted sludge in gallbladder without stones - noted hepatic congestion likely related to #1 - MRCP as above, no CBD dilatation, gallstones v sludge in GB, no s/sx of acute cholecystitis - Had hepatitis labs performed 2019 that were negative - Exact etiology unclear but elevated direct bilirubin. Obtained alpha-1 antitrypsin antibody along with a copper level--> these are pending - In addition, he had an RUQ U/S to further assess for cirrhotic changes of the liver. He does have hepatomegaly and a dilated portal vein (which could go [id number] with portal vein hypertension) --suspect cirrhosis given elevated INR as well --He denies ongoing alcohol abuse. Reports approximately 3 glasses of wine a day. He does have a history of cardiomyopathy (that is nonischemic). Uncertain if he has history of alcohol abuse in the past that he is not forthcoming about - Patient is not on statin therapy. Would avoid this - With adequate diuresis, his total bilirubin is down to 2.0 (thus there is likely a significant degree of passive venous congestion contributing) - Patient to avoid Tylenol/Tylenol related products and alcohol - would benefit from GI referral as OP--> at discretion of PCP - Ordered follow-up metabolic panel to be obtained next week prior to his follow-up with cardiology (5) Cardiomyopathy: As above - with previous EF 30-35% with estimated RVSP of 40-50 and global hypokinesis of the LV (now with improved EF of 40-45%) - Changed his Carvedilol to BID dosing- also has not had a dose increase since Sep - Diurese as above - follow symptoms, volume status, and hemodynamics - stop lisinopril to allow for appropriate washout in order to transition to Entresto (6) Valvular heart disease: AR, MR, TR (7) Elevated INR: As above- not on anticoagulation - chronic currently 1.6 with elevated PT 16.6 - As above Plan D/W Dr. Alejandre and Vonnie Garsia PA-C--> patient will FU with CHF clinic as OP Above plan of care will be d/w Dr. Bonds Total Time Total Time Spent Total Time Spent (In Minutes): 45 minutes including time spent with patient, coordination of care, preparation of documentation and discussion with attending provider Discharge Plan Discharge Items Patient Disposition: Home - Self-Care Reason For Visit: DYSPNEA, CHEST PAIN, CHF EXACERBATION Discharge Diagnosis: 1. Acute Uncompensated CHF 2. NSTEMI- Type II event 3. Hyperbilirubinemia Condition on Discharge: Fair Activity: Resume your previous activity Non-emergency contact: Primary Care Provider and Petroleum Supply Specialist Call non-emergency contact if: you have any medication questions and your symptoms worsen Follow-up/Referrals: Vonnie Garsia PA-C [[employer]] - 01/13/22 10:30 am (Congestive Heart Failure Program Appointment Information Early follow up is essential to managing your heart failure. An appointment has been scheduled for you with the [facility] within 7 days of discharge. Anticipate this visit to be 30-60 minutes long. Please expect a automatic winder operator phone call from one of our nurses approximately 48 hours from discharge. They will also be placing an order for lab work to be completed 1-2 days prior to your heart failure follow up appointment. Please be sure to have this done so we can go over the results when you come in. Office Location The cardiology office building is located in front of the hospital at [address]. Bring the following with you to your follow-up doctor appointments: Please bring your daily weight log any discharge paperwork all of your medication bottles with you to this visit. ) Power Almendarez, DO [Primary Care Provider] - Diet: Low Sodium (2gm) Fluids: 1500ml (6 cups) Ambulatory Orders: Comprehensive Metabolic Panel (Routine) Timeframe: [id number] Location: Determined by Patient Ordered By: Vonnie Ash Attending Provider Instructions: You were hospitalized and found to have acute uncompensated congestive heart failure which accounted for your symptoms You responded favorably to IV Lasix. You have since been converted back to oral Lasix; however, at an increased dose. You were taking 80 mg once daily prior to coming in here. It is recommended that you take 80 mg twice a day. Try to take your doses at least 6 hours apart and aim to take your afternoon dose as close to noon as possible (to prohibit being up all night urinating). In addition, your lisinopril has been converted to Entresto (which will help with the congestive heart failure and the "pump" of your heart). You do need an appropriate washout when transitioning lisinopril to Entresto. Start Entresto on Tuesday morning. As discussed, check your blood pressure if you feel dizzy or lightheaded as the biggest side effect to Entresto is low blood pressures. Maintain a low-sodium/fluid restricted diet to prevent further fluid accumulation. Be sure to notify your pharmacology teacher/PCP or return to the emergency department if you notice increased swelling, shortness of breath, cough, having to prop the head of your bed up at night to sleep, or a 3 pound weight gain within 1 to 2 days. When weighing yourself, it is important to be consistent with this. Weigh yourself at the same time of day, every day and with the same amount of clothes on (would advise weighing yourself in your underwear). Please note that your Coreg has been increased to twice a day Your liver function tests were slightly elevated during this hospitalization. I am uncertain of the exact cause. Could be from passive venous congestion related to your congestive heart failure. I have ordered subsequent labs to help differentiate. Follow-up with your PCP regarding this and consider GI referral. Would avoid alcohol, Tylenol, and Tylenol related products as these are all metabolized within the liver. You should have follow-up labs drawn next week to further trend your renal and liver function studies along with electrolytes. It is likely that you may need potassium supplementation but surprisingly, your potassium has remained within normal limits despite getting IV Lasix. You are on a potassium sparing diuretic as well (Aldactone) thus we will hold off on additional potassium for now as to prevent hyperkalemia (a potassium that is too high). I have ordered labs. Please get these drawn prior to your follow-up with cardiology on 01/13 (your appointment is at 1030. You can come on 01/12 or early on 01/13 to get labs drawn. It is not necessary for you to fast for this). Return to the emergency department for any new or worsening symptoms Addtl Manager Business Management Provider Instructions: Call your Primary Care doctor if any of the following symptoms or problems start or get worse: * Shortness of breath or difficulty breathing * Wake up at night short of breath * Chest pain * Cough * Swelling of your hands, feet, or legs * More fatigued or tired with your normal activity * Palpitations - sudden fast heart beats WEIGHT * Weigh yourself every morning after using the bathroom. * Use the same scale. * Wear the same amount of clothing. * Write your weight down on a chart. * Call your Primary Care doctor if you gain more than 2-3 pounds in 1-2 days. MEDICATIONS * Use this discharge instruction sheet for medication instructions. * Take your medications at the time your doctor ordered. * Do not skip a dose of your medicines. * If you miss a dose of medicine, take it as soon as possible, but DO NOT DOUBLE A DOSE. * Read your medicine information when you get home. * Know all of the side effects of your medicine. If in doubt, ask your pharmacist * Call your Primary Care doctor's office if you have any side effects. * Be sure all of your doctors know what medicine and herbs you take (including cold, flu, and herbal medicine). Take the following with you to your follow-up doctor appointments: * Weight Chart * Medication List * List of questions Do not drink excessive alcohol, beer or wine. Pending Studies at Discharge: Yes Studies:: Copper level, alpha-1 antitrypsin level, GGT Stand-Alone Forms: My [facility] [employer], Smoking Cessation Medications and DC Order Prescriptions: New furosemide 80 mg Tablet 80 mg PO [id number] Qty: 60 RF: 0 Entresto 24-26 mg tablet 1 tab PO BID Qty: 60 RF: 0 carvedilol [Coreg] 12.5 mg tablet 12.5 mg PO BID Qty: 60 RF: 0 Continued spironolactone 25 mg tablet 25 mg PO QAM RF: 0 multivitamin [Multiple Vitamins] Tablet 1 tab PO QAM RF: 0 aspirin 81 mg Tablet,Delayed Release (Dr/Ec) 81 mg PO QAM RF: 0 benzonatate 100 mg capsule 100 mg PO Q8H PRN (Reason: Cough) RF: 0 Discontinued lisinopril 10 mg tablet 10 mg PO QAM RF: 0 furosemide 80 mg tablet 80 mg PO QAM RF: 0 amoxicillin-pot clavulanate 875-125 mg tablet 1 tab PO Q12 RF: 0 carvedilol 12.5 mg tablet 12.5 mg PO QAM RF: 0 Discharge Orders: Discharge Order (Routine); Ordered 01/09/22 Ordered By: Vonnie Carranza Admission Data Admit Date/Time: 01/05/22 10:21 Attending Provider: Yohan Bonds Admit Provider: Gregory Prado Primary Care Provider: Power Almendarez Other Providers: Gregory Prado ; Aleksandr Alejandre Other Interventions: Discharge Summary Assessment (RN) Last Done: 01/09/22 10:28 Coding Level of Care Code D/C DAY MANAGEMENT >30 MINS Diagnoses CHF (congestive heart failure) I50.9 Heart failure chronicity: acute on chronic Heart failure type: unspecified Elevated troponin R77.8 Edema R60.9 Total bilirubin, elevated R17 Cardiomyopathy I42.9 Valvular heart disease I38 Elevated INR R79.1
[2022-01-12 16:45] LABS: Alpha 1 Antitrypsin 157 mg/dL (83-199); Copper, Serum 137 mcg/dL (70-175)
--- NOTE | 2022-01-18 11:51 | Coding Query ---
CONGESTIVE HEART FAILURE To Promote full compliance with coding requirements relating to patient care, physician participation is requested in all cases of outpatient coder uncertainty. Please assist us with the following questions. A diagnosis of Acute on Chronic Heart Failure exacerbation with HFrEF (this would be Systolic CHF) is documented on the H&P, and the Cardiology Consultation and Cardiology Progress Notes document Decompensated Systolic Heart Failure, and on the Discharge Summary, there is documentation of Decompensated Systolic Heart Failure as well as documentation of Acute/Chronic Systolic/Diastolic CHF. To accurately code this diagnosis, we ask that you specify the type of heart failure by placing an X within the parenthesis (x). (xx ) SYSTOLIC HEART FAILURE ( ) COMBINED SYSTOLIC AND DIASTOLIC HEART FAILURE ( ) Other: Please Specify Thank you Nyla TUCKER
--- NOTE | 2022-01-18 11:58 | Coding Query ---
PRESENT ON ADMISSION QUERY To promote full compliance with coding requirements relating to pateint care, physician participation is requested in all cases of infection control rn uncertainty. Please assist us with the question(s) below: Please place an X within the parenthesis (x). The following diagnosis listed in this patient's medical record require physician assistance to determine if they were present on admission (POA) or not. Please advise for each diagnosis whether it was present on admission, not present on admission, or if it was clinically undetermined. 1. NSTEMI - Type 2 (documentation of NSTEMI is on the Discharge Summary, before that there was only Myocardial Injury documented) ( x) Present On Admission ( ) Not Present On Admission ( ) Clinically Undetermined ( ) Ruled-out Thank you Nyla Shafer *Definition of the present on admission (POA)-Present on admission is defined as present at the time the order for inpatient admission occurs. Conditions that develop during an outpatient encounter prior to a written order for inpatient admission (including emergency department, observation, or outpatient surgery) are considered present on admission. [place]
== END 2022-01-09 11:27 | disposition home or self-care (01) | DRG 280 ==
LOC: ED 07:30 → 2S 10:21 → SUATTDRO 10:21 → 2S 12:39